=== PATIENT | female | born 1975 | race Two or more races ===

== ENCOUNTER 2020-09-05 08:47 | Outpatient (REF) | payer OTHER, SELFPAY ==
--- NOTE | 2020-09-05 08:46 | EMG_ITS ---
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 There is no numbness. MEDICATIONS: No medications. PHYSICAL EXAMINATION: On examination, she is alert and oriented with normal intellectual functions. Cranial nerves II through XII are normal. Muscle tone and strength are normal in all 4 extremities. There is some tenderness of the tendons. No Tinel or Phalen sign. IMPRESSION: Tendinitis, rule out carpal tunnel syndrome. Nerve conduction EMG study: Normal electrodiagnostic study of both upper extremities with no evidence of carpal tunnel syndrome or nerve entrapment. Normal EMG of the right C5 through T1 innervated muscles. MD KEISHA Gooden/[place] / [phone]
== END 2020-09-05 08:48 | disposition home or self-care (01) ==
LOC: HO.NEURO 08:47
PROVIDERS: PCP Internal Medicine; Visit Provider Internal Medicine
DX: M65.9 Synovitis and tenosynovitis, unspecified (principal)
CPT/HCPCS: 95886; 95913

== ENCOUNTER 2020-12-27 19:52 | Emergency (ER) | payer OTHER, SELFPAY ==
[2020-12-27 20:34] VITALS: BP 115/69; PULSE 86; RESP 18; TEMP 37; O2SAT 97; BMI 26.7
[2020-12-27] MEDS: Ibuprofen 600 MG TABLET PO (22:42)
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
== END 2020-12-28 00:07 | disposition home or self-care (01) ==
PROVIDERS: Emergency Provider Internal Medicine; PCP Internal Medicine
DX: Z04.1 Encounter for examination and observation following transport accident (principal); G89.11 Acute pain due to trauma; M54.5 Low back pain
CPT/HCPCS: 99283; 99284

== ENCOUNTER 2021-01-02 15:45 | Outpatient (REF) | payer OTHER, SELFPAY | END 2021-01-02 15:46 | disposition home or self-care (01) | LOC: HO.LAB 15:45 | PROVIDERS: Visit Provider Internal Medicine | DX: Z20.822 Contact with and (suspected) exposure to COVID-19 (principal) | CPT/HCPCS: C9803; U0003; U0005 ==

== ENCOUNTER 2021-02-02 07:26 | Emergency (ER) | payer OTHER, SELFPAY ==
[2021-02-02 07:29] VITALS: BP 107/67; PULSE 76; RESP 16; TEMP 36.5; O2SAT 100; BMI 26.7
--- NOTE | 2021-02-02 08:19 | ED_ITS ---
HPI - Eye Problem General Chief complaint: Eye Problems Stated complaint: eye irritation Time Seen by Provider: 02/02/21 08:06 Source: patient Mode of arrival: ambulatory Limitations: no limitations History of Present Illness HPI Narrative: 45-year-old female presenting to the ED with complaints of irritation to bilateral eyes with purulent drainage for the past 2 days after she had eyelash extensions. She reports she removed the eyelash extensions but continues to have pain/redness and purulent drainage and swelling to bilateral eyelids. Denies any fevers or any other symptoms complaints or concerns at this time. chief complaint: eye redness Onset (ago): day(s) (Few days worse today) Onset description: gradual Duration: constant and progressively worsening Location: both eyes Eye Symptoms: burning, redness, itching and discharge Place: home Mechanism: other (Artificial eyelashes) Severity: mild If Pain, Quality: burning Associated symptoms: none Treatments Prior to Arrival: none Related Data Home Medications Medication Instructions Recorded Confirmed sertraline 50 mg tablet 50 mg PO QAM 07/26/20 01/22/21 [id number]-arggvrntscxup-vqhjhazo 1 tab PO .2-3 TIMES A DAY PRN tab 08/10/20 01/22/21 50 mg-325 mg-40 mg tablet Previous Rx's Medication Instructions Recorded sennosides 8.6 mg tablet 8.6 mg PO BEDTIME PRN 90 Days #90 08/01/20 tab albuterol sulfate 90 mcg/actuation 2 puff INHALATION QID PRN #18 g 12/04/20 aerosol inhaler topiramate 25 mg sprinkle capsule 75 mg PO BEDTIME #90 cap 12/04/20 alprazolam 0.5 mg tablet 0.5 mg PO BID PRN 15 Days #30 tab 12/05/20 quetiapine 50 mg tablet 150 mg PO BEDTIME 30 Days #90 tab 12/05/20 carbamide peroxide 6.5 % ear drops 5 drp OTIC (EARS) DAILY 7 Days #30 12/21/20 ml acetaminophen [Tylenol Extra 500 mg PO Q6H PRN #20 tab 12/27/20 Strength] cyclobenzaprine 5 mg PO Q8H PRN 5 Days #14 tab 12/27/20 lidocaine [Lidoderm] 1 patch TOPICAL DAILY PRN #30 ea 12/27/20 MDD remove after 12 hours ferrous sulfate 325 mg (65 mg 325 mg PO DAILY #30 tab 01/22/21 iron) tablet,delayed release ibuprofen 800 mg tablet 800 mg PO TID PRN #90 tab 01/22/21 trazodone 150 mg tablet 150 mg PO BEDTIME PRN #30 tab 01/24/21 amoxicillin-pot clavulanate 1 tab PO BID 10 Days #20 tab 02/02/21 [Augmentin] clindamycin HCl 300 mg PO TID 10 Days #30 cap 02/02/21 erythromycin 0.5 inch OPHTHALMIC (EYE) QID 5 02/02/21 Days #3.5 g Allergies Allergy/AdvReac Type Severity Reaction Status Date / Time No Known Allergies Allergy Mild NKA Verified 01/22/21 13:16 Review of Systems Review of Systems: Constitutional : No fevers, no chills, No changes in activity, No lethargy, No recent prior head injury, No agitation, No increased fussiness ENT/Mouth : No Ear Pain, No Nasal discharge/drainage Eyes: + bilateral eyelid swelling, redness, purulent discharge, drainage and itching, No Vision changes/blurry/decreased vision, No Eye Pain, No Foreign Body, No Photophobia, no contact lens uses, no recent welding, no bleeding Cardiovascular : No Chest Pain, No SOB Respiratory : No Cough Gastrointestinal : No Nausea, No Vomiting, No abdominal Pain Genitourinary : No Dysuria, No Urinary Frequency, No Urinary Incontinence, No Urgency, No Flank Pain Musculoskeletal : No joint pain, No neck stiffness, No back pain/injury Skin : No lacerations Neuro : No unsteady gait, No Paresthesias, No Loss of Consciousness, No altered mental status, No dizziness, No Headache Denies past medical history of HIV, recent trauma, coagulopathy, recent spinal/ epidural procedure, new medication, URI symptoms, close contacts with similar symptoms, tick bite, or known CO2 exposure. Yes all other systems are reviewed and are negative PMFSH Past Medical History Attestation statement: The following information was validated with the patient. Medical History Anxiety Asthma Bipolar disorder Discomfort of both ears Impacted cerumen of both ears Insomnia Medical marijuana use Migraine Neck pain Neck pain on left side Overweight (BMI 25.0-29.9) Skin mole Tenosynovitis of forearm Tenosynovitis of thumb Surgical History History of breast augmentation (~02/18/10) History of section (~07/2011) History of incision and drainage (~2008) Status post abdominal hysterectomy (~02/09/13) Family History Family History Father Unknown family medical history Mother Diabetes mellitus Hypertension Asthma Paternal Grandfather Alzheimer's dementia Social History Social History Alcohol intake: never Smoking Status: Former smoker Substance Use Type: Marijuana Advance Directives: No Advance Directives Information Provided: Yes Patient : No Physical Exam Vital Signs: Vital Signs: Last Vital Signs Temp 97.7 F 02/02/21 07:29 Pulse 76 02/02/21 07:29 Resp 16 02/02/21 07:29 BP 107/67 02/02/21 07:29 Pulse Ox 100 02/02/21 07:29 Body Mass Index 26.7 vital signs have been reviewed as normal and appeared to be correct. Blood pressure normal. Heart rate normal. Respiration rate normal. Temperature normal. Oxygen saturation normal. Appearance: Alert. Oriented X3. No acute distress. Head: Normal external exam. Normocephalic. Atraumatic. No Calvo signs noted. No raccoon eyes noted Eyes: PERRLA. EOMI. Bilateral conjunctiva erythematous purulent discharge is noted consistent with conjunctivitis bacterial. Patient also with bilateral upper and lower eyelid erythema and edema consistent with periorbital cellulitis. Not consistent with orbital cellulitis at this time. Cornea are normal. Funduscopic exam within normal limits. Sclera normal. No papilledema noted. Anterior chamber normal. No photophobia noted. ENT: EAC normal. TM's Normal. Pharynx normal. Uvula midline. Moist mucous membranes. Neck: Normal inspection. Neck supple. FROM. No adenopathy. Thyroid Normal. No meningeal signs. No neck mass noted. CVS: Normal heart rate and rhythm. Heart sound normal. No murmurs noted. Pulses normal throughout. Respiratory: No respiratory distress. Painless inspiration. Breath sounds normal. Back: Full range of motion noted. Skin: Skin warm and dry. Normal skin color. Normal skin turgor. No rashes/lesions/lacerations noted. Extremities: No lower extremity edema. Extremities exhibit normal range of motion. Extremities nontender. Neuro: Oriented X 3. No motor deficit. No sensory deficit. Reflexes normal. Course Course Course Narrative: Patient with bilateral bacterial conjunctivitis with associated periorbital cellulitis not consistent with orbital cellulitis. Will DC home with topical and oral antibiotics and instructions to return if any new or worsening symptoms to follow up with primary care provider. Patient understands agrees with this plan. MDM - Eye Problem Medical Records Attestation: I reviewed the patient's medical records. Discharge Plan Discharge Clinical Impression: Bacterial conjunctivitis, Periorbital cellulitis Patient Disposition: Home, Self-Care Instructions: Periorbital Cellulitis in Adults (ED), Conjunctivitis (ED) Prescriptions: New clindamycin HCl 300 mg capsule 300 mg PO TID 10 Days Qty: 30 RF: 0 amoxicillin-pot clavulanate [Augmentin] 875-125 mg tablet 1 tab PO BID 10 Days Qty: 20 RF: 0 erythromycin 5 mg/gram (0.5 %) ointment 0.5 inch ophthalmic (eye) QID 5 Days Qty: 3.5 RF: 0 No Action sennosides [Senna Lax] 8.6 mg tablet 8.6 mg PO BEDTIME PRN (Reason: constipation) 90 Days Qty: 90 RF: 12 albuterol sulfate 90 mcg/actuation HFA aerosol inhaler 2 puff inhalation QID PRN (Reason: shortness of breath or wheezing) Qty: 18 RF: 2 topiramate 25 mg capsule, sprinkle 75 mg PO BEDTIME Qty: 90 RF: 0 alprazolam 0.5 mg tablet 0.5 mg PO BID PRN (Reason: anxiety) 15 Days Qty: 30 RF: 0 quetiapine 50 mg tablet 150 mg PO BEDTIME 30 Days Qty: 90 RF: 1 carbamide peroxide [Debrox] 6.5 % drops 5 drp otic (ears) DAILY 7 Days Qty: 30 RF: 0 ibuprofen 800 mg tablet 800 mg PO TID PRN (Reason: for fever) Qty: 90 RF: 1 ferrous sulfate 325 mg (65 mg iron) tablet,delayed release (DR/EC) 325 mg PO DAILY Qty: 30 RF: 1 trazodone 150 mg tablet 150 mg PO BEDTIME PRN (Reason: insomnia) Qty: 30 RF: 3 acetaminophen [Tylenol Extra Strength] 500 mg tablet 500 mg PO Q6H PRN (Reason: pain or fever) Qty: 20 RF: 0 lidocaine [Lidoderm] 5 % adhesive patch,medicated 1 patch topical DAILY MDD remove after 12 hours PRN (Reason: pain) Qty: 30 RF: 0 cyclobenzaprine 5 mg tablet 5 mg PO Q8H PRN (Reason: pain (scale score 7-10)) 5 Days Qty: 14 RF: 0 sertraline 50 mg tablet 50 mg PO QAM RF: 0 ivkttrqjcp-yutxygmcfvaoj-ywgm 50-325-40 mg tablet 1 tab PO .2-3 TIMES A DAY PRNRF: 0 Referrals: Perez Noriega MD [Primary Care Provider] - 2 days Stand Alone Forms: Work/School Release Print Language: Amharic
[2021-02-02] MEDS: Erythromycin Base 0.5% Oph Oin 1 GM TUBE 1 CM EYE-BOTH (08:27)
[2021-02-02] MEDS: Amoxicillin/Potassium Clav 875 MG TABLET PO (08:27)
--- NOTE | 2021-02-02 08:28 | PC.NURSE ---
Pt alert + oriented, c/o swelling, redness, pain to both eyes. Pt received PO abt + opthalmic ointment. Pt awaiting d/c at this time.
== END 2021-02-02 08:36 | disposition home or self-care (01) ==
PROVIDERS: Emergency Provider Emergency Medicine; PCP Internal Medicine
DX: H10.9 Unspecified conjunctivitis (principal); L03.213 Periorbital cellulitis
CPT/HCPCS: 99283

== ENCOUNTER 2021-05-28 16:32 | Emergency (ER) | payer MEDICAID, SELFPAY ==
[2021-05-28 16:54] VITALS: BP 99/54; PULSE 74; RESP 16; TEMP 36.2; O2SAT 98; BMI 21.6
--- NOTE | 2021-05-28 17:16 | ED.DIZZY ---
HPI - Dizziness General Chief Complaint: Dizziness Stated Complaint: near syncope Time Seen by Provider: 05/28/21 17:16 Source: patient Mode of arrival: ambulatory Limitations: no limitations History of Present Illness HPI Narrative: 46-year-old female presents with dizziness, near syncope and headache that started approximately 2-3 hours ago that started at work. She has not taken any medications, does not report any fevers or chills, cough, chest pain or pressure, shortness of breath, abdominal pain, abdominal distention, dysuria, hematuria, nausea, vomiting, diarrhea, constipation, or any other concerning symptoms. MD elicited complaint: dizziness and near syncope Onset (ago): hour(s) (3 hours) Timing: sudden onset Severity: mild Description: lightheadedness and near-syncope History of similar symptoms: Yes Relieving factors: nothing Associated symptoms: denies other symptoms Related Data Home Medications Medication Instructions Recorded Confirmed poxkgeeuap-nfaswkcrsiybe-vhkhfplg 1 tab PO .2-3 TIMES A DAY PRN tab 08/10/20 01/22/21 50 mg-325 mg-40 mg tablet Previous Rx's Medication Instructions Recorded sennosides 8.6 mg tablet (Senna 8.6 mg PO BEDTIME PRN 90 Days #90 08/01/20 Lax) tab carbamide peroxide 6.5 % ear drops 5 drp OTIC (EARS) DAILY 7 Days #30 12/21/20 (Debrox) ml acetaminophen 500 mg tablet 500 mg PO Q6H PRN #20 tab 12/27/20 (Tylenol Extra Strength) cyclobenzaprine 5 mg tablet 5 mg PO Q8H PRN 5 Days #14 tab 12/27/20 lidocaine 5 % topical patch 1 patch TOPICAL DAILY PRN #30 ea 12/27/20 (Lidoderm) MDD remove after 12 hours ferrous sulfate 325 mg (65 mg 325 mg PO DAILY #30 tab 01/22/21 iron) tablet,delayed release ibuprofen 800 mg tablet 800 mg PO TID PRN #90 tab 01/22/21 trazodone 150 mg tablet 150 mg PO BEDTIME PRN #30 tab 01/24/21 amoxicillin 875 mg-potassium 1 tab PO BID 10 Days #20 tab 02/02/21 clavulanate 125 mg tablet (Augmentin) clindamycin HCl 300 mg capsule 300 mg PO TID 10 Days #30 cap 02/02/21 erythromycin 5 mg/gram (0.5 %) eye 0.5 inch OPHTHALMIC (EYE) QID 5 02/02/21 ointment Days #3.5 g quetiapine 50 mg tablet 150 mg PO BEDTIME 30 Days #90 tab 02/08/21 sertraline 50 mg tablet 50 mg PO QAM 30 Days #30 tab 02/08/21 topiramate 25 mg sprinkle capsule 75 mg PO BEDTIME #90 cap 04/11/21 albuterol sulfate 90 mcg/actuation 2 puff INHALATION QID PRN #18 g 04/21/21 aerosol inhaler alprazolam 0.5 mg tablet 0.5 mg PO BID PRN 15 Days #30 tab 04/22/21 Allergies Allergy/AdvReac Type Severity Reaction Status Date / Time No Known Allergies Allergy Mild NKA Verified 01/22/21 13:16 Review of Systems Review of Systems: Constitutional: No Fever, No Chills ENT/Mouth: No Ear Pain, No Hoarseness, No sore throat Eyes: No Eye Pain, No Swelling, No Redness, No Foreign Body Cardiovascular: No Chest Pain, No SOB Respiratory: No Cough, No Dyspnea Gastrointestinal: No Nausea, No Vomiting, No Diarrhea, No abdominal Pain Genitourinary: No Dysuria, No Hematuria Musculoskeletal: No joint pain, No Myalgias, No Joint Swelling Skin: No Skin lacerations, No rash Neuro: No Weakness, No Numbness, No Paresthesias, No Loss of Consciousness, positive Dizziness, positive Headache Psych: No Anxiety/Panic, No Depression Heme/Lymph: no easy bruising, no Lymphadenopathy Endocrine: No Polyuria, No Polydipsia Yes all other systems are reviewed and are negative [facility] Past Medical History Attestation statement: The following information was validated with the patient. Source: old records reviewed Medical History Anxiety Asthma Bipolar disorder Discomfort of both ears Impacted cerumen of both ears Insomnia Medical marijuana use Migraine Neck pain Neck pain on left side Overweight (BMI 25.0-29.9) Skin mole Tenosynovitis of forearm Tenosynovitis of thumb Surgical History History of breast augmentation (~02/18/10) History of section (~07/2011) History of incision and drainage (~2008) Status post abdominal hysterectomy (~02/09/13) Family History Family History Father Unknown family medical history Mother Diabetes mellitus Hypertension Asthma Paternal Grandfather Alzheimer's dementia Social History Social History Alcohol intake: never Patient Tobacco Use Status: Never used Tobacco Substance Use Type: Marijuana Advance Directives: No Advance Directives Information Provided: No Physical Exam Vital Signs: Vital Signs: Last Vital Signs Temp 97.8 F 05/28/21 19:44 Pulse 64 05/28/21 19:44 Resp 16 05/28/21 19:44 BP 102/60 05/28/21 19:44 Pulse Ox 99 05/28/21 19:44 Body Mass Index 21.6 Appearance: Alert. Oriented X3. No acute distress. Eyes: Pupils equal, round and reactive to light. ENT: Pharynx normal. Dry mucous membranes. Neck: Normal inspection. Neck supple. CVS: Normal heart rate and rhythm. Pulses normal. Respiratory: No respiratory distress. Breath sounds normal. Abdomen: Soft and nontender. Skin: Skin warm and dry. Normal skin color. Normal skin turgor. Extremities: No lower extremity edema. Moves all extremities against resistance. Gait well balanced well coordinated. Neuro: No motor deficit. No sensory deficit. Cranial nerves 2-12 intact. Course Course Course Narrative: 46-year-old female presents with dizziness, near-syncope, and headache for about 2 hours. Symptoms started while she was at work. She does appear visibly dry, dry mucous membranes, with blood pressure of 99/54. Will order labs, urinalysis, and EKG. EKG normal sinus, troponin negative, low likelihood for ACS. Does have low blood pressure could possibly be dehydration and she does appear visibly dry. Will replete with 2 L of normal saline. Patient states that she feels much better after fluid resuscitation, blood pressure 102/60 plan of care to discharge home with patient to follow-up with primary care physician. Patient verbalized understanding of and agrees to plan of care. MDM - Dizziness Differential Diagnosis Differential diagnosis: Likely benign paroxysmal positional vertigo and orthostatic hypotension Medical Records Attestation: I reviewed the patient's medical records. Lab Data Attestation: I reviewed the patient's lab results. Result diagrams: 05/28/21 17:33 05/28/21 18:02 Labs: Lab Results 05/28/21 05/28/21 05/28/21 Range/Units 17:32 17:33 17:33 WBC 3.8 L (4.8-10.8) X10*3/uL RBC 4.72 (4.20-5.50) X10*6/uL Hgb 14.5 (12.0-16.0) g/dl Hct 42.9 (37-47) % MCV 90.9 (80-98) fL MCH 30.7 (27.0-33.0) pg MCHC 33.8 (31.0-35.0) g/dl RDW 11.8 (11.0-16.0) % Plt Count 158 L (160-400) X10*3/uL MPV 9.9 (9.4-12.3) fL Immature Gran % (Auto) 0.3 (0.0-0.4) % Neut % (Auto) 58.2 (45-73) % Lymph % (Auto) 29.1 (20-40) % Hunt % (Auto) 11.8 H (2-11) % Eos % (Auto) 0.3 (0-4) % Baso % (Auto) 0.3 (0-2) % Lymph # (Auto) 1.1 L (1.2-4.9) X10*3/uL Hunt # (Auto) 0.5 (0.1-1.2) X10*3/uL Eos # (Auto) 0.0 (0.0-0.4) X10*3/uL Baso # (Auto) 0.0 (0.0-0.2) X10*3/uL Abs Immat Gran (auto) 0.01 (0.00-0.03) X10*3/uL Absolute Neuts (auto) 2.2 (2.0-8.3) X10*3/uL Absolute Nucleated RBC 0.000 (0.0-0.012) X10*3/uL Nucleated RBC % (auto) 0.0 (0.0-0.2) /100WBC Sodium (135-145) mmol/L Potassium (3.3-5.1) mmol/L Chloride (96-108) mmol/L Carbon Dioxide (22-29) mmol/L Anion Gap (12-20) BUN (9-16) mg/dL Creatinine (0.5-1.4) mg/dL Estim Creat Clear Calc Estimated GFR Random Glucose (60-115) mg/dL Calcium (8.4-10.2) mg/dL Troponin I High Sens < 3.5 (<3.5-17.0) ng/L Urine Color STRAW Urine Appearance CLEAR Urine pH 6.0 (5.0-8.0) Ur Specific Marina <= 1.005 (1.005-1.025) Urine Protein NEG (NEG-TRACE) MG/DL Urine Glucose (UA) NEG (NEG) MG/DL Urine Ketones NEG (NEG) MG/DL Urine Blood NEG (NEG) Urine Nitrite NEG (NEG) Ur Leukocyte Esterase NEG (NEG) 05/28/21 Range/Units 18:02 WBC (4.8-10.8) X10*3/uL RBC (4.20-5.50) X10*6/uL Hgb (12.0-16.0) g/dl Hct (37-47) % MCV (80-98) fL MCH (27.0-33.0) pg MCHC (31.0-35.0) g/dl RDW (11.0-16.0) % Plt Count (160-400) X10*3/uL MPV (9.4-12.3) fL Immature Gran % (Auto) (0.0-0.4) % Neut % (Auto) (45-73) % Lymph % (Auto) (20-40) % Hunt % (Auto) (2-11) % Eos % (Auto) (0-4) % Baso % (Auto) (0-2) % Lymph # (Auto) (1.2-4.9) X10*3/uL Hunt # (Auto) (0.1-1.2) X10*3/uL Eos # (Auto) (0.0-0.4) X10*3/uL Baso # (Auto) (0.0-0.2) X10*3/uL Abs Immat Gran (auto) (0.00-0.03) X10*3/uL Absolute Neuts (auto) (2.0-8.3) X10*3/uL Absolute Nucleated RBC (0.0-0.012) X10*3/uL Nucleated RBC % (auto) (0.0-0.2) /100WBC Sodium 137 (135-145) mmol/L Potassium 4.1 (3.3-5.1) mmol/L Chloride 107 (96-108) mmol/L Carbon Dioxide 24 (22-29) mmol/L Anion Gap 10 L (12-20) BUN 11 (9-16) mg/dL Creatinine 0.73 (0.5-1.4) mg/dL Estim Creat Clear Calc 99.2 Estimated GFR > 60 Random Glucose 101 (60-115) mg/dL Calcium 8.3 L (8.4-10.2) mg/dL Troponin I High Sens (<3.5-17.0) ng/L Urine Color Urine Appearance Urine pH (5.0-8.0) Ur Specific Marina (1.005-1.025) Urine Protein (NEG-TRACE) MG/DL Urine Glucose (UA) (NEG) MG/DL Urine Ketones (NEG) MG/DL Urine Blood (NEG) Urine Nitrite (NEG) Ur Leukocyte Esterase (NEG) ECG Data Attestation: I personally reviewed and interpreted this ECG as follows: ECG interpretation date: 05/28/21 ECG interpretation time: 17:43 Prior ECG tracings: available for review Interpretation: Vent. rate 59 BPM OH interval 150 ms QRS duration 76 ms QT/QTc 404/399 ms P-R-T axes 31 44 26 Sinus bradycardia Otherwise normal ECG When compared with ECG of 15-JUN-2017 16:20, Previous ECG has undetermined rhythm, needs review ST no longer depressed in Anterior leads Discharge Plan Discharge Clinical Impression: Dizziness, Dehydration, Near syncope Patient Disposition: Home, Self-Care Instructions: Dehydration (ED), Near Syncope (ED), Dizziness (ED) Additional Instructions: You were evaluated for dizziness, near syncope and dehydration. Please drink plenty of fluids. Follow-up with primary care physician this week. Your EKG is normal sinus. Your lab values were normal. Thank you for choosing this emergency department for evaluation. Please follow-up with primary care physician as needed. Return to the emergency department for any new, concerning, or worsening symptoms. Prescriptions: No Action sennosides [Senna Lax] 8.6 mg tablet 8.6 mg PO BEDTIME PRN (Reason: constipation) 90 Days Qty: 90 RF: 12 carbamide peroxide [Debrox] 6.5 % drops 5 drp otic (ears) DAILY 7 Days Qty: 30 RF: 0 ibuprofen 800 mg tablet 800 mg PO TID PRN (Reason: for fever) Qty: 90 RF: 1 ferrous sulfate 325 mg (65 mg iron) tablet,delayed release (DR/EC) 325 mg PO DAILY Qty: 30 RF: 1 trazodone 150 mg tablet 150 mg PO BEDTIME PRN (Reason: insomnia) Qty: 30 RF: 3 quetiapine 50 mg tablet 150 mg PO BEDTIME 30 Days Qty: 90 RF: 1 sertraline 50 mg tablet 50 mg PO QAM 30 Days Qty: 30 RF: 1 topiramate 25 mg capsule, sprinkle 75 mg PO BEDTIME Qty: 90 RF: 3 albuterol sulfate 90 mcg/actuation HFA aerosol inhaler 2 puff inhalation QID PRN (Reason: shortness of breath or wheezing) Qty: 18 RF: 2 alprazolam 0.5 mg tablet 0.5 mg PO BID PRN (Reason: anxiety) 15 Days Qty: 30 RF: 0 clindamycin HCl 300 mg capsule 300 mg PO TID 10 Days Qty: 30 RF: 0 amoxicillin-pot clavulanate [Augmentin] 875-125 mg tablet 1 tab PO BID 10 Days Qty: 20 RF: 0 erythromycin 5 mg/gram (0.5 %) ointment 0.5 inch ophthalmic (eye) QID 5 Days Qty: 3.5 RF: 0 acetaminophen [Tylenol Extra Strength] 500 mg tablet 500 mg PO Q6H PRN (Reason: pain or fever) Qty: 20 RF: 0 lidocaine [Lidoderm] 5 % adhesive patch,medicated 1 patch topical DAILY MDD remove after 12 hours PRN (Reason: pain) Qty: 30 RF: 0 cyclobenzaprine 5 mg tablet 5 mg PO Q8H PRN (Reason: pain (scale score 7-10)) 5 Days Qty: 14 RF: 0 wrlwduiqpu-mcoxvvgstfehn-yqwf 50-325-40 mg tablet 1 tab PO .2-3 TIMES A DAY PRNRF: 0 Stand Alone Forms: Work/School Release Interventions: ED Discharge Assessment Last Done: 05/28/21 20:03 Discharge Date/Time: 05/28/21 20:03
--- NOTE | 2021-05-28 17:21 | ECG_ITS ---
Test Reason : WEAK Blood Pressure : / mmHG Vent. Rate : 059 BPM Atrial Rate : 059 BPM P-R Int : 150 ms QRS Dur : 076 ms QT Int : 404 ms P-R-T Axes : 031 044 026 degrees QTc Int : 399 ms Sinus bradycardia Otherwise normal ECG When compared with ECG of 15-JUN-2017 16:20, Previous ECG has undetermined rhythm, needs review ST no longer depressed in Anterior leads Referred By: Jami Joseph Electronically Signed By:LEO ACOSTA
[2021-05-28 17:43] LABS: MANUAL DIFF FLAG NO
[2021-05-28 17:46] LABS: Glucose Urine UA NEG (NEG); Leukocyte Esterase Urine NEG (NEG); Nitrite Urine NEG (NEG); Specific Gravity - Urine <= 1.005 (1.005-1.025); Urine Blood NEG (NEG); Urine Ketones NEG (NEG); Urine Protein NEG (NEG-TRACE)
[2021-05-28] MEDS: 0.9 % Sodium Chloride 1,000 ML 999 ML IVCONT ×2 (17:46→18:42)
[2021-05-28] MEDS: Acetaminophen 325 MG TABLET 975 MG PO (17:46)
[2021-05-28 17:47] LABS: Basophils Percent Auto 0.3 % (0-2); Eosinophils Percent Auto 0.3 % (0-4); Hematocrit 42.9 % (37-47); Hemoglobin 14.5 g/dl (12.0-16.0); Imm Gran Abs Auto 0.01 X10*3/uL (0.00-0.03); Imm Gran Pct Auto 0.3 % (0.0-0.4); Lymphocytes Absolute Auto 1.1 X10*3/uL (1.2-4.9); Lymphocytes Percent Auto 29.1 % (20-40); Mean Corpuscular HGB Conc 33.8 g/dl (31.0-35.0); Mean Corpuscular Hemoglobin 30.7 pg (27.0-33.0); Mean Corpuscular Volume 90.9 fL (80-98); Mean Platelet Volume 9.9 fL (9.4-12.3); Monocytes Absolute Auto 0.5 X10*3/uL (0.1-1.2); Monocytes Percent Auto 11.8 % (2-11); Neutrophils Absolute Auto 2.2 X10*3/uL (2.0-8.3); Neutrophils Percent Auto 58.2 % (45-73); Platelet Count 158 X10*3/uL (160-400); Red Blood Count 4.72 X10*6/uL (4.20-5.50); Red Cell Distribution Width 11.8 % (11.0-16.0); White Blood Count 3.8 X10*3/uL (4.8-10.8)
[2021-05-28 17:51] LABS: Appearance Urine CLEAR; Color Urine STRAW
[2021-05-28 18:09] LABS: Troponin-I High Sensitivity < 3.5 ng/L (<3.5-17.0)
[2021-05-28 18:41] LABS: Anion Gap 10 (12-20); Blood Urea Nitrogen 11 mg/dL (9-16); Calcium 8.3 mg/dL (8.4-10.2); Carbon Dioxide 24 mmol/L (22-29); Chloride 107 mmol/L (96-108); Creatinine Clr Calc Pharmacy 99.2; Estimated Glomerular Filt Rate > 60; Glucose Random 101 mg/dL (60-115); Potassium 4.1 mmol/L (3.3-5.1); Sodium 137 mmol/L (135-145)
[2021-05-28 19:44] VITALS: BP 102/60; PULSE 64; RESP 16; TEMP 36.6; O2SAT 99
== END 2021-05-28 20:03 | disposition home or self-care (01) ==
PROVIDERS: Nurse Practitioner Family; Emergency Provider Internal Medicine; PCP Internal Medicine
DX: R42 Dizziness and giddiness (principal); E86.0 Dehydration; R55 Syncope and collapse
CPT/HCPCS: 36415; 80048; 81003; 84484; 85025; 93005; 96360; 99284; 99285

== ENCOUNTER 2021-09-18 14:16 | Outpatient (REF) | payer OTHER, SELFPAY | END 2021-09-18 14:17 | disposition home or self-care (01) | LOC: HO.LNP 14:16 | PROVIDERS: Visit Provider Physician Assistant Medical | DX: B34.9 Viral infection, unspecified (principal); Z20.822 Contact with and (suspected) exposure to COVID-19 | CPT/HCPCS: U0003; U0005 ==

== ENCOUNTER 2021-11-09 12:08 | Emergency (ER) | payer OTHER, SELFPAY ==
--- NOTE | ~2021-11-09 | XR_ITS ---
EXAMINATION: XR ANKLE, RIGHT CLINICAL INFORMATION: Twisted right ankle. COMPARISON: None TECHNIQUE: Four views of the right ankle. FINDINGS: Lateral soft tissue swelling at the ankle. No fracture or malalignment. Bone mineralization is normal. Joint spaces are well-preserved. Ankle mortise is symmetric. XR/XR ankle RT min 3V IMPRESSION: Anterior and lateral soft tissue swelling at the right ankle. No acute fracture or malalignment.
[2021-11-09 12:20] VITALS: BP 113/62; PULSE 100; RESP 19; TEMP 36.6; O2SAT 97; BMI 31.2
--- NOTE | 2021-11-09 13:01 | ED_ITS ---
HPI - Extremity Injury (Lower) General Chief Complaint: Extremity Injury, Lower Stated Complaint: right ankle sprain/swollen Time Seen by Provider: 11/09/21 12:21 Source: patient Mode of arrival: ambulatory Limitations: no limitations History of Present Illness HPI Narrative: Patient is a 46 year old female presenting to the emergency department today with right ankle pain. Patient states that yesterday, she twisted her right ankle and would like to be evaluated today. Patient states that she did not hit her head in the incident and did not injure anything else in the incident. Patient denies any loss of consciousness with the incident. Patient denies any dizziness, lightheadedness, abdominal pain, nausea, vomiting, fever, chills, blurry vision, double vision, loss of vision, chest pain, difficulty breathing, shortness of breath, back pain, night sweats, pain with urination, increased urinary frequency, increased urinary urgency, blood in her urine or stool, syncope or a near syncopal episode, bowel incontinence, bladder incontinence, bowel retention, bladder retention, or any other complaints at this time. MD complaint: ankle injury Onset (ago): day(s) (1) Injury: Right: ankle (pain) Severity scale (1-10): 2 Relieving factors: nothing Exacerbating factors: nothing Other symptoms: none Related Data Home Medications Medication Instructions Recorded Confirmed toqyezdxby-ggoktqdaiwqsy-fcbrdamb 1 tab PO .2-3 TIMES A DAY PRN tab 08/10/20 01/22/21 50 mg-325 mg-40 mg tablet Previous Rx's Medication Instructions Recorded sennosides 8.6 mg tablet (Senna 8.6 mg PO BEDTIME PRN 90 Days #90 08/01/20 Lax) tab carbamide peroxide 6.5 % ear drops 5 drp OTIC (EARS) DAILY 7 Days #30 12/21/20 (Debrox) ml acetaminophen 500 mg tablet 500 mg PO Q6H PRN #20 tab 12/27/20 (Tylenol Extra Strength) cyclobenzaprine 5 mg tablet 5 mg PO Q8H PRN 5 Days #14 tab 12/27/20 lidocaine 5 % topical patch 1 patch TOPICAL DAILY PRN #30 ea 12/27/20 (Lidoderm) MDD remove after 12 hours ferrous sulfate 325 mg (65 mg 325 mg PO DAILY #30 tab 01/22/21 iron) tablet,delayed release ibuprofen 800 mg tablet 800 mg PO TID PRN #90 tab 01/22/21 trazodone 150 mg tablet 150 mg PO BEDTIME PRN #30 tab 01/24/21 amoxicillin 875 mg-potassium 1 tab PO BID 10 Days #20 tab 02/02/21 clavulanate 125 mg tablet (Augmentin) clindamycin HCl 300 mg capsule 300 mg PO TID 10 Days #30 cap 02/02/21 erythromycin 5 mg/gram (0.5 %) eye 0.5 inch OPHTHALMIC (EYE) QID 5 02/02/21 ointment Days #3.5 g quetiapine 50 mg tablet 150 mg PO BEDTIME 30 Days #90 tab 02/08/21 sertraline 50 mg tablet 50 mg PO QAM 30 Days #30 tab 02/08/21 topiramate 25 mg sprinkle capsule 75 mg PO BEDTIME #90 cap 04/11/21 albuterol sulfate 90 mcg/actuation 2 puff INHALATION QID PRN #18 g 04/21/21 aerosol inhaler alprazolam 0.5 mg tablet 0.5 mg PO BID PRN 15 Days #30 tab 04/22/21 Allergies Allergy/AdvReac Type Severity Reaction Status Date / Time No Known Allergies Allergy Mild NKA Verified 09/18/21 12:37 Review of Systems Constitutional: Constitutional: Reports no additional constitutional complaints, Denies chills, Denies fever(s) and Denies night sweats Eyes: Eyes: Reports no additional eye complaints, Denies blurry vision, Denies change in vision, Denies diplopia, Denies eye discharge, Denies loss of vision and Denies eye pain ENT: Denies dizziness Cardiovascular: Cardiovascular: Reports no additional cardiovascular complaints, Denies chest pain, Denies lightheadedness, Denies Loss of Consciousness and Denies dyspnea Respiratory: Respiratory: Reports no additional respiratory complaints and Denies dyspnea Gastrointestinal: Gastrointestinal: Reports no additional gastrointestinal complaints, Denies abdominal pain, Denies melena, Denies hematochezia, Denies change in bowel habits and Denies change in stool character Genitourinary: Genitourinary: Denies hematuria, Denies urinary frequency, Denies dysuria, Denies urinary incontinence, Denies urinary hesitancy and Denies urinary urgency Musculoskeletal: Musculoskeletal: Reports no additional musculoskeletal complaints, Denies numbness and Denies tingling Comments: right ankle pain Neurologic: Denies dizziness, Denies loss of vision, Denies numbness and Denies tingling Psychiatric: Psychiatric: Reports no additional psychiatric complaints Endocrine: Endocrine: Reports no additional endocrine complaints Hematologic/Lymphatic: Hematologic/Lymphatic: Reports no additional hematologic/lymphatic complaints Allergic/Immunologic: Allergic/Immunologic: Reports no additional a llergic/immunologic complaints PMFSH Past Medical History Attestation statement: The following information was validated with the patient. Source: old records reviewed Medical History Anxiety Asthma Bipolar disorder Discomfort of both ears Impacted cerumen of both ears Insomnia Medical marijuana use Migraine Neck pain Neck pain on left side Overweight (BMI 25.0-29.9) Skin mole Tenosynovitis of forearm Tenosynovitis of thumb Surgical History History of breast augmentation (~02/18/10) History of section (~07/2011) History of incision and drainage (~2008) Status post abdominal hysterectomy (~02/09/13) Family History Family History Father Unknown family medical history Mother Diabetes mellitus Hypertension Asthma Paternal Grandfather Alzheimer's dementia Social History Social History Alcohol intake: never Patient Tobacco Use Status: Never used Tobacco Substance Use Type: Marijuana Advance Directives: No Advance Directives Information Provided: Yes Physical Exam Vital Signs: Vital Signs: Last Vital Signs Temp 98 F 11/09/21 12:20 Pulse 100 11/09/21 12:20 Resp 19 11/09/21 12:20 BP 113/62 11/09/21 12:20 Pulse Ox 97 11/09/21 12:20 BMI result Body Mass Index 31.2 Const: General: cooperative, no acute distress, alert and awake Nutritional Appearance: well nourished Orientation/consciousness: patient oriented x3 Limitations: no limitations HENMT: Head: Yes normal to inspection and Yes atraumatic Ears: hearing grossly normal bilaterally and external ears normal General nose exam: Normal external nose present, no nasal discharge noted and no epistaxis Face and sinus: Yes normal facial exam, No abrasion and No laceration Mouth: Normal oral and palatal mucosa present, no drooling and no muffled voice Eyes: General: appearance normal, both eyes and all related structures Periorbital: periorbital findings normal Eyelids: Yes eyelids normal Conjunctivae: conjunctivae normal Pupils: Equal, round and reactive pupils present EOM: EOMs intact bilaterally Neck: Neck: Yes normal visual inspection, Yes full ROM and Yes no lymp hadenopathy Chest: Chest palpation & inspection: normal inspection of the chest Resp: Effort & Inspection: normal respiratory effort and able to speak in complete sentences GI: Inspection: Yes normal to inspection Neuro: General: patient oriented x3 and moves all extremities Cranial nerves: Yes Equal, round and reactive pupils present Cognition (Neuro): normal cognition Motor exam (neuro): 5/5 motor strength present throughout Sensory Exam: Normal double simultaneous stimulation for sensation Coordination: [id number] test normal Extrem: General: Yes normal to inspection, Yes full ROM and Yes capillary refill normal Psych: Appearance: grossly normal Mental Status: mental status grossly normal Affect: normal affect Attitude: cooperative Thought process: Normal thought process present Thought content: Normal thought content present Insight: Good insight present (Psych) MDM - Extremity Injury (Lower) MDM Narrative Medical decision making narrative: Patient is a 46 year old female presenting to the emergency department today with right ankle pain. Patient's physical exam was unremarkable. Patient's right ankle x-ray showed no acute process. I explained my physical exam findings as well as all test results to the patient. I answered all questions asked by the patient. Patient's right ankle was placed in a splint and the patient was given and educated on proper use of crutches. I stressed the importance of the patient following up with an orthopedist if the patient does not get better in the next 7 days. I stressed the importance of the patient following up with her primary care provider. I stressed the importance of the patient returning to the emerg ency department immediately if her symptoms were to worsen or if she were to develop any dizziness, shortness of breath, difficulty breathing, chest pain, blurry vision, loss of vision, nausea, vomiting, abdominal pain, fever, chills, back pain, or any other complaints. Patient verbalized agreement and understanding with this treatment plan and discharge. Differential Diagnosis Differential diagnosis: Likely ankle sprain and strain and ankle fracture Medical Records Attestation: I reviewed the patient's medical records. Imaging Data right ankle x-ray: Attestation: I personally reviewed and interpreted this imaging study as follows: Radiologist's impression: EXAMINATION: XR ANKLE, RIGHT CLINICAL INFORMATION: Twisted right ankle.? COMPARISON: None? TECHNIQUE: Four views of the right ankle. FINDINGS: Lateral soft tissue swelling at the ankle. No fracture or malalignment. Bone mineralization is normal. Joint spaces are well-preserved. Ankle mortise is symmetric. XR/XR ankle RT min 3V IMPRESSION: Anterior and lateral soft tissue swelling at the right ankle. No acute fracture or malalignment. Dictated By: LOLIS DONALDSON MD Signed By: Electronically signed by LOLIS DONALDSON MD 11/09/2021 Discharge Plan Discharge Clinical Impression: Ankle sprain Patient Disposition: Home, Self-Care Instructions: Ankle Sprain (ED) Additional Instructions: Call to schedule a follow up appointment with an Orthopedic provider. Follow up with your primary care provider. Return to the emergency department immediately if your symptoms worsen or if you develop any dizziness, shortness of breath, difficulty breathing, chest pain, blurry vision, loss of vision, nausea, vomiting, abdominal pain, fever, chills, back pain, or any other complaints. Prescriptions: No Action sennosides [Senna Lax] 8.6 mg tablet 8.6 mg PO BEDTIME PRN (Reason: constipation) 90 Days Qty: 90 12RF carbamide peroxide [Debrox] 6.5 % drops 5 drp otic (ears) DAILY 7 Days Qty: 30 0RF Rx Instructions: apply into BOTH ears as instructed ibuprofen 800 mg tablet 800 mg PO TID PRN (Reason: for fever) Qty: 90 1RF ferrous sulfate 325 mg (65 mg iron) tablet,delayed release (DR/EC) 325 mg PO DAILY Qty: 30 1RF trazodone 150 mg tablet 150 mg PO BEDTIME PRN (Reason: insomnia) Qty: 30 3RF quetiapine 50 mg tablet 150 mg PO BEDTIME 30 Days Qty: 90 1RF sertraline 50 mg tablet 50 mg PO QAM 30 Days Qty: 30 1RF topiramate 25 mg capsule, sprinkle 75 mg PO BEDTIME Qty: 90 3RF albuterol sulfate 90 mcg/actuation HFA aerosol inhaler 2 puff inhalation QID PRN (Reason: shortness of breath or wheezing) Qty: 18 2RF alprazolam 0.5 mg tablet 0.5 mg PO BID PRN (Reason: anxiety) 15 Days Qty: 30 0RF clindamycin HCl 300 mg capsule 300 mg PO TID 10 Days Qty: 30 0RF amoxicillin-pot clavulanate [Augmentin] 875-125 mg tablet 1 tab PO BID 10 Days Qty: 20 0RF erythromycin 5 mg/gram (0.5 %) ointment 0.5 inch ophthalmic (eye) QID 5 Days Qty: 3.5 0RF acetaminophen [Tylenol Extra Strength] 500 mg tablet 500 mg PO Q6H PRN (Reason: pain or fever) Qty: 20 0RF lidocaine [Lidoderm] 5 % adhesive patch,medicated 1 patch topical DAILY MDD remove after 12 hours PRN (Reason: pain) Qty: 30 0RF Rx Instructions: leave on most painful area for up to 12 hrs cyclobenzaprine 5 mg tablet 5 mg PO Q8H PRN (Reason: pain (scale score 7-10)) 5 Days Qty: 14 0RF nyfumbgaoi-vxemjalslmbsr-mewc 50-325-40 mg tablet 1 tab PO .2-3 TIMES A DAY [id number] Referrals: Perez Noriega MD [Primary Care Provider] - 2 days Rob Mcdermott MD [Physician] - 2 days Print Language: Ma[place]
== END 2021-11-09 15:30 | disposition home or self-care (01) ==
PROVIDERS: Emergency Provider Emergency Medicine Emergency Medical Services; PCP Internal Medicine
DX: S93.401A Sprain of unspecified ligament of right ankle, initial encounter (principal); X50.1XXA Overexertion from prolonged static or awkward postures, initial encounter; Y93.9 Activity, unspecified; Y92.9 Unspecified place or not applicable; Y99.9 Unspecified external cause status
CPT/HCPCS: 73610; 99283

== ENCOUNTER 2022-09-24 10:34 | Outpatient (REF) | payer OTHER, SELFPAY ==
--- NOTE | ~2022-09-24 | XR_ITS ---
EXAMINATION: LUMBAR SPINE, CERVICAL SPINE AND LEFT SHOULDER. CLINICAL INFORMATION: Pain in left shoulder. COMPARISON: None TECHNIQUE: 5 views lumbar spine. Left shoulder 4 views. Cervical spine 3 views. FINDINGS: Lumbar spine: There is normal lumbar lordosis. The vertebral heights, alignment and disc heights are normal. The SI joints are symmetrical. No visible acute fracture, dislocation or subluxation seen. Left shoulder: There is normal glenohumeral and AC joint alignment. Mild reduction AC joint and glenohumeral joint space is seen. Mild superior AC joint periarticular spurring. No visible acute fracture, dislocation or subluxation seen. The soft tissues are normal. Cervical spine: There is mild straightening of cervical lordosis. The vertebral heights, alignment and disc heights are normal. No visible acute fracture, dislocation or subluxation seen. The prevertebral and paravertebral soft tissues are normal. XR/XR lumbar spine 4V min IMPRESSION: 1. Unremarkable lumbar spine exam. 2. Mild degenerative changes left A.C. joint and glenohumeral joint. No visible acute fracture, dislocation or subluxation seen. 3. Mild straightening of cervical lordosis likely spasm or positional. No visible acute fracture or dislocation seen.
--- NOTE | ~2022-09-24 | XR_ITS ---
EXAMINATION: LUMBAR SPINE, CERVICAL SPINE AND LEFT SHOULDER. CLINICAL INFORMATION: Pain in left shoulder. COMPARISON: None TECHNIQUE: 5 views lumbar spine. Left shoulder 4 views. Cervical spine 3 views. FINDINGS: Lumbar spine: There is normal lumbar lordosis. The vertebral heights, alignment and disc heights are normal. The SI joints are symmetrical. No visible acute fracture, dislocation or subluxation seen. Left shoulder: There is normal glenohumeral and AC joint alignment. Mild reduction AC joint and glenohumeral joint space is seen. Mild superior AC joint periarticular spurring. No visible acute fracture, dislocation or subluxation seen. The soft tissues are normal. Cervical spine: There is mild straightening of cervical lordosis. The vertebral heights, alignment and disc heights are normal. No visible acute fracture, dislocation or subluxation seen. The prevertebral and paravertebral soft tissues are normal. XR/XR cervical spine 3V IMPRESSION: 1. Unremarkable lumbar spine exam. 2. Mild degenerative changes left A.C. joint and glenohumeral joint. No visible acute fracture, dislocation or subluxation seen. 3. Mild straightening of cervical lordosis likely spasm or positional. No visible acute fracture or dislocation seen.
--- NOTE | ~2022-09-24 | XR_ITS ---
EXAMINATION: LUMBAR SPINE, CERVICAL SPINE AND LEFT SHOULDER. CLINICAL INFORMATION: Pain in left shoulder. COMPARISON: None TECHNIQUE: 5 views lumbar spine. Left shoulder 4 views. Cervical spine 3 views. FINDINGS: Lumbar spine: There is normal lumbar lordosis. The vertebral heights, alignment and disc heights are normal. The SI joints are symmetrical. No visible acute fracture, dislocation or subluxation seen. Left shoulder: There is normal glenohumeral and AC joint alignment. Mild reduction AC joint and glenohumeral joint space is seen. Mild superior AC joint periarticular spurring. No visible acute fracture, dislocation or subluxation seen. The soft tissues are normal. Cervical spine: There is mild straightening of cervical lordosis. The vertebral heights, alignment and disc heights are normal. No visible acute fracture, dislocation or subluxation seen. The prevertebral and paravertebral soft tissues are normal. XR/XR shoulder LT min 2V IMPRESSION: 1. Unremarkable lumbar spine exam. 2. Mild degenerative changes left A.C. joint and glenohumeral joint. No visible acute fracture, dislocation or subluxation seen. 3. Mild straightening of cervical lordosis likely spasm or positional. No visible acute fracture or dislocation seen.
== END 2022-09-24 10:35 | disposition home or self-care (01) ==
LOC: HO.XRAY 10:34
PROVIDERS: PCP Internal Medicine; Visit Provider Nurse Practitioner Family
DX: M54.2 Cervicalgia (principal); M54.50 Low back pain, unspecified; M25.512 Pain in left shoulder
CPT/HCPCS: 72040; 72110; 73030

== ENCOUNTER 2022-10-09 08:52 | Outpatient (REF) | payer OTHER, SELFPAY ==
--- NOTE | ~2022-10-09 | CT_ITS ---
EXAMINATION: CT HEAD WITHOUT CONTRAST CLINICAL INFORMATION: Headache. COMPARISON: Head CT 03/01/2014. TECHNIQUE: Contiguous axial imaging was performed from the skull base to vertex without intravenous administration of contrast. This CT examination was performed using dose optimization techniques as appropriate, variously including the following: *Automated exposure control *Adjustment of mA and/or kV according to patient size (this includes techniques or standardized protocols for targeted exams where dose is matched to indication/reason for exam; i.e. extremities or head) *Use of iterative reconstruction technique DLP: 751 mGy-cm. FINDINGS: There is no intracranial hemorrhage, large infarction, or mass lesion. There is no extra-axial collection. The ventricles are normal in size and configuration without evidence of hydrocephalus. The visualized paranasal sinuses and mastoid air cells are clear. CT/CT head/brain wo IV con IMPRESSION: No acute intracranial abnormality.
== END 2022-10-09 08:53 | disposition home or self-care (01) ==
LOC: HO.CT 08:52
PROVIDERS: PCP Internal Medicine; Visit Provider Nurse Practitioner Family
DX: R51.9 Headache, unspecified (principal)
CPT/HCPCS: 70450

== ENCOUNTER → 2023-01-05 13:27 | Outpatient (BNVA) | payer OTHER, SELFPAY | PROVIDERS: PCP Internal Medicine; Referring Provider Internal Medicine; Visit Provider Surgery | DX: K62.89 Other specified diseases of anus and rectum (principal) | CPT/HCPCS: 99202 ==

== ENCOUNTER 2023-06-25 09:57 | Outpatient (AMB) | payer OTHER, SELFPAY ==
[2023-06-25 10:05] VITALS: BP 120/80; PULSE 62; O2SAT 97; BMI 28.1
--- NOTE | 2023-06-25 10:05 | A.OFFPC_ITS ---
Vital Signs 06/25/23 10:05 Height 5 ft Weight 144 lb 2 oz BMI 28.1 BP 120/80 Blood Pressure Location Lt brachial Position Sitting Pulse 62 Pulse Source Pulse Oximeter Pulse Oximetry (%) 97 Oxygen Delivery Method Room Air Intake Visit Reasons: Annual Exam Bottler Required: No Accompanied by: Self / Same As Patient Allergies No Known Allergies Allergy (Mild, Verified 06/25/23 10:54) NKA Medication List - Last Reconciled 06/25/23 by Perez Noriega MD ferrous sulfate 325 mg PO DAILY ibuprofen 800 mg PO TID PRN 30 days Ventolin HFA 90 mcg/actuation (albuterol sulfate) 2 puffs inhalation Q6-8H PRN NS Tobacco use date assessed: 06/25/23 Dental Screening Dental Screen Date: 06/25/23 Did you have a dental visit in the last 12 months?: Yes Did you have a dental problem in the last 6 months where you did not have access to dental care?: No Was dental information given to patient?: Patient has dentist HPI Annual Exam HPI Details Patient comes in today for her annual physical examination States that she feels okay She denies any headaches or dizziness Denies any chest pains, no SOB No nausea/vomiting, no abdominal pain No change in bowel habits noted Denies any acute urinary symptoms Needs a couple of her Rx refilled today States that she has not done her follow up labs lately Has never had a screening colonoscopy done in the past and would like to have Dr. Parr do her colonoscopy as much as possible as she has seen Dr. 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 board operator or had her pap smear done [facility] Medical History Perianal cyst Discomfort of both ears Neck pain Impacted cerumen of both ears Neck pain on left side Skin mole Tenosynovitis of thumb Tenosynovitis of forearm Overweight (BMI 25.0-29.9) Medical marijuana use Bipolar disorder Anxiety Insomnia Migraine Asthma Surgical History Status post abdominal hysterectomy (~05/15/13) History of section (~07/2011) History of breast augmentation (~02/18/10) History of incision and drainage (~2008) Family History Father Unknown family medical history Mother Diabetes mellitus Hypertension Asthma Paternal Grandfather Alzheimer's dementia Social History Housing: Apartment Alcohol intake: never Patient Tobacco Use Status: Never used Tobacco e-Cigarette/Vaping Use: Never Used Second Hand Smoke Exposure: Yes service: No Current occupational status: employed Cognitive needs: No Hearing needs: No Vision needs: Yes (needs to see eye doctor) Questionnaire PHQ-9 Over the last 2 weeks, how often have you been bothered by any of the following problems? 1. Little interest or pleasure in doing things: not at all 2. Feeling down, depressed, or hopeless: not at all 3. Trouble falling or staying asleep, or sleeping too much: not at all 4. Feeling tired or having little energy: not at all 5. Poor appetite or overeating: not at all 6. Feeling bad about yourself - or that you are a failure or have let yourself or your family down: not at all 7. Trouble concentrating on things, such as reading the newspaper or watching television: not at all 8. Moving or speaking so slowly that other people could have noticed. Or the opposite - being so fidgety or restless that you have been moving around a lot more than usual: not at all 9. Thoughts that you would be better off or of hurting yourself in some way: not at all Total score: 0 Depression Screening Interpretation: Negative [id number] - PHQ-9 Billing: Yes Source: Developed by Drs. Solomon Duval, Alexa Degroot, José Miguel Lundberg and colleagues, with an educational zulema from [employer]. Thrive Questionnaire Date Thrive assessed: 06/25/23 I am a: Patient What is your living situation today?: I have a steady place to live Within the past 12 months, did the food you bought not last and you didn't have the money to get more?: Never true Within the past 12 months, did you worry whether your food would run out before you got money to buy more?: Never true Do you have trouble paying for medicines?: No Do you have trouble getting transportation to medical appointments?: No Do you have trouble paying your heating and electricity bill?: No Do you have trouble taking care of your child, family member or friend?: No Do you have trouble with day-to-day activities such as bathing, preparing meals, shopping, managing finances, etc.?: No Are you currently unemployed and looking for a job?: No Are you interested in more education?: No Please select the resources that you would like help with: None Currently or been in a relationship where the following occur: no concerns reported AUDIT C Alcohol Use Questionnaire (AUDIT-C) 1. How often do you have a drink containing alcohol?: Never 3. How often do you have six or more drinks on one occasion?: Never Total Score: 0 Score Reviewed/Action Taken: Yes MALINA-7 AMB Questionnaire MALINA-7 Date MALINA - 7 assessed: 06/25/23 Feeling nervous, anxious, or on edge: 0 = Not at all Not being able to stop or control worryin = Not at all Worrying too much about different things: 0 = Not at all Trouble relaxin = Not at all Being so restless that it is hard to sit still: 0 = Not at all Becoming easily annoyed or irritable: 0 = Not at all Feeling afraid as if something awful might happen: 0 = Not at all Total MALINA-7 score (0-4 normal; 5-9 mild; 10-14 moderate; 15-21 severe): 0 Source: Developed by Drs. Solomon Duval, Alexa Degroot, José Miguel Lundberg and colleagues, with an educational zulema from [employer]. Review of Systems Const Denies chills, Denies fatigue, Denies fever(s), Denies headache(s) and Denies malaise Eyes Denies blurry vision, Denies change in vision, Denies irritation and Denies itchy eyes ENT Denies dysphagia, Denies dizziness, Denies otalgia, Denies headache(s), Denies nasal congestion, Denies neck pain, Denies odynophagia, Denies sinus pain and Denies sore throat Card Denies chest pain, Denies rapid heart rate, Denies irregular heart rhythm, Denies palpitations and Denies dyspnea Resp Denies chest congestion, Denies cough, Denies dyspnea and Denies wheezing GI Denies abdominal pain, Denies bloating, Denies constipation, Denies dysphagia, Denies heartburn, Denies diarrhea, Denies nausea, Denies odynophagia and Denies vomiting Denies hematuria, Denies urinary frequency, Denies dysuria, Denies urinary incontinence and Denies urinary urgency Musc Denies back pain, Denies arthralgias, Denies joint swelling, Denies muscle weakness and Denies neck pain Skin/Breast Denies breast pain, Denies breast mass, Denies change in pigmentation, Denies lesions, Denies rash and Denies unusual bruising Neuro Denies dizziness, Denies headache(s) and Denies paresthesias Psych Denies anxiety and Denies depression Endo Denies fatigue and Denies palpitations Albert/Lymph Denies easy bruising Aller/Immun Denies itchy eyes and Denies wheezing Physical exam (Primary Care) Vital Signs: Last Vital Signs Pulse 62 06/25/23 10:05 BP 120/80 06/25/23 10:05 Pulse Ox 97 06/25/23 10:05 Oxygen Delivery Method Room Air 06/25/23 10:05 BMI result Body Mass Index 28.1 Tobacco/Smoking Status: Tobacco use Status Tobacco use date assessed 06/25/23 06/25/23 10:07 Patient Tobacco Use Status Never used Tobacco 06/25/23 10:07 e-Cigarette/Vaping Use Never Used 06/25/23 10:07 PHQ-9: PHQ-9 Score PHQ-9: Total score 0 06/25/23 11:55 Depression Screening Interpretation: Negative Thrive Assessment: Date of Thrive Assessment Date Thrive assessed 06/25/23 06/25/23 10:07 Currently or been in a relationship where the following occur: no concerns reported Const General: no acute distress, alert and awake Orientation/consciousness: patient oriented x3 HENMT Head: Yes normocephalic and Yes atraumatic Ears: external ears normal, TM's normal bilaterally and EAC's normal General nose exam: No nasal discharge present Face and sinus: Yes normal facial exam and Yes sinuses nontender Teeth and gingiva: dentition normal Throat: Yes posterior oropharynx normal and Yes tonsils normal (no TP congestion) Eyes Eyelids: Yes eyelids normal Conjunctivae: conjunctivae normal Pupils: Equal, round and reactive pupils present EOM: EOMs intact bilaterally Neck Neck: Yes no lymphadenopathy and Yes supple Thyroid: Thyroid normal Resp Auscultation: clear to auscultation bilaterally, no rales and no wheezes Cardio Rate: regular rate Rhythm: regular rhythm Heart sounds: no murmurs GI Palpation (GI): Soft to palpation, nontender and No hepatosplenomegaly present Auscultation: normal bowel sounds General: Yes no CVA tenderness Back/Spine/Pelvis Back: no CVA tenderness Thoracic/Lumbar Spine: thoracic and lumbar spine normal to inspection Skin Lesions: no lesions Rashes: no rashes Neuro General: patient oriented x3, moves all extremities, no focal motor deficits and CN's II-XI intact bilaterally Cranial nerves: Yes Equal, round and reactive pupils present Cognition (Neuro): normal cognition Gait exam (Neuro): Normal gait present Extrem General: Yes no clubbing, cyanosis or edema Assessment and Plan Assessment & Plan (1) Annual physical exam: Code(s): Z00.00 - Encounter for general adult medical examination without abnormal findings Plan: Check labs WAYNE (2) Asthma: Code(s): J45.909 - Unspecified asthma, uncomplicated Qualifiers: Asthma complication type: uncomplicated Asthma persistence: intermittent Asthma severity: mild Qualified Code(s): J45.20 - Mild intermittent asthma, uncomplicated Plan: Controlled/stable Continue Albuterol HFA 1 to 2 inhalations Q 6 hours PRN - Rx refilled (3) Anemia: Code(s): D64.9 - Anemia, unspecified Qualifiers: Anemia type: iron deficiency Iron deficiency anemia type: inadequate dietary iron intake Qualified Code(s): D50.8 - Other iron deficiency anemias Plan: Continue Ferrous Sulfate 325 mg QD - Rx refilled Will recheck her CBC for follow up (4) Migraine: Code(s): G43.909 - Migraine, unspecified, not intractable, without status migrainosus Qualifiers: Intractability: not intractable Migraine type: unspecified Status migrainosus presence: without status migrainosus Qualified Code(s): G43.909 - Migraine, unspecified, not intractable, without status migrainosus Plan: Stable/controlled Continue Fioricet 50-325-40 mg 1 tablet 2 to 3 times a day as needed (5) Anxiety: Code(s): F41.9 - Anxiety disorder, unspecified Plan: States that her anxiety remains well-controlled lately and she does not need any Rx at this time States that working full-time and staying busy has helped keep her occupied and has helped a lot (6) Bipolar disorder: Code(s): F31.9 - Bipolar disorder, unspecified Qualifiers: Active/Remission status: currently active Current bipolar episode type: mixed Current episode severity: unspecified Qualified Code(s): F31.60 - Bipolar disorder, current episode mixed, unspecified Plan: Has not been on any Rx for several months now and states that she is doing well so far without any Rx Working full-time has helped a lot Follow up with psychiatry as scheduled (7) Overweight (BMI 25.0-29.9): Code(s): E66.3 - Overweight Plan: Reinforced diet/exercise as tolerated/lose weight (8) Colon cancer screening: Code(s): Z12.11 - Encounter for screening for malignant neoplasm of colon Plan: Patient states that she has never had a screening colonoscopy done in the past Per request, will refer her to Dr. 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 assistant exam - has not had one done in years Plan Follow up in 6 months Orders: Orders Complete Blood Count Auto Diff Today D64.9 - Anemia, unspecified, Z00.00 - Encounter for general adult medical examination without abnormal findings Lipid Panel Today E78.00 - Pure hypercholesterolemia, unspecified, Z00.00 - Encounter for general adult medical examination without abnormal findings TSH reflex Free T4 Today E78.00 - Pure hypercholesterolemia, unspecified, Z00.00 - Encounter for general adult medical examination without abnormal findings UA CC w/rflx Micro + Cult Today R30.0 - Dysuria, Z00.00 - Encounter for general adult medical examination without abnormal findings Vitamin D 25-OH Total Today E55.9 - Vitamin D deficiency, unspecified, Z00.00 - Encounter for general adult medical examination without abnormal findings Hemoglobin A1c Today R73.01 - Impaired fasting glucose MM tomosynthesis screening BI Today Z12.31 - Encounter for screening mammogram for malignant neoplasm of breast Comprehensive [place]. Panel Fast Today D64.9 - Anemia, unspecified, Z00.00 - Encounter for general adult medical examination without abnormal findings Referrals General Surgery Referral Z12.11 - Encounter for screening for malignant neoplasm of colon MANAGER MEDICARE Referral Z12.4 - Encounter for screening for malignant neoplasm of cervix Medications: Changed From ferrous sulfate 325 mg PO DAILY 30 tabs 1RF To ferrous sulfate 325 mg PO DAILY 90 days 90 tabs 3RF From Ventolin HFA 90 mcg/actuation (albuterol sulfate) 2 puffs inhalation Q6-8H PRN 18 grams 3RF shortness of breath or wheezing NS To Ventolin HFA 90 mcg/actuation (albuterol sulfate) 2 puffs inhalation Q6-8H 90 days PRN 3 inhalers 3RF shortness of breath or wheezing NS Coding Level of Care Code Est Pt Prev Care 40-64y(41363) Diagnoses Annual physical exam Z00.00 Mild intermittent asthma without complication J45.20 Asthma complication type: uncomplicated Asthma persistence: intermittent Asthma severity: mild Iron deficiency anemia secondary to inadequate dietary iron intake D50.8 Anemia type: iron deficiency Iron deficiency anemia type: inadequate dietary iron intake Migraine without status migrainosus, not intractable, unspecified migraine type G43.909 Intractability: not intractable Migraine type: unspecified Status migrainosus presence: without status migrainosus Anxiety F41.9 Bipolar affective disorder, current episode mixed, current episode severity unspecified F31.60 Active/Remission status: currently active Current bipolar episode type: mixed Current episode severity: unspecified Overweight (BMI 25.0-29.9) E66.3 Colon cancer screening Z12.11 Breast cancer screening by mammogram Z12. Cervical cancer screening Z12.4
== END 2023-06-25 11:01 | disposition home or self-care (01) ==
PROVIDERS: Visit Provider Internal Medicine
DX: Z00.00 Encounter for general adult medical examination without abnormal findings (principal); J45.20 Mild intermittent asthma, uncomplicated; D50.8 Other iron deficiency anemias; F31.60 Bipolar disorder, current episode mixed, unspecified; G43.909 Migraine, unspecified, not intractable, without status migrainosus; F41.9 Anxiety disorder, unspecified; E66.3 Overweight; Z12.31 Encounter for screening mammogram for malignant neoplasm of breast; Z98.891 History of uterine scar from previous surgery
CPT/HCPCS: 99396

== ENCOUNTER 2023-07-30 14:18 | Emergency (ER) | payer OTHER, SELFPAY ==
[2023-07-30 14:34] VITALS: BP 181/55; PULSE 76; RESP 16; TEMP 36.6; O2SAT 98; BMI 27.9
--- NOTE | 2023-07-30 14:35 | ED.GENADULT ---
HPI - General Adult General Chief complaint: Dizziness Stated complaint: dizzy Time Seen by Provider: 07/30/23 15:58 Source: patient Mode of arrival: ambulatory Limitations: no limitations History of Present Illness HPI narrative: Patient is a 48 year old assigned female at with a history of anemia presenting to the emergency department today with dizziness and feeling dehydrated. Patient states that over the last 7 days she has felt intermittently dizzy and dehydrated. Patient states that she has also felt intermittently nauseous and has vomited intermittently. Patient denies any lightheadedness, abdominal pain, fever, chills, blurry vision, double vision, loss of vision, chest pain, difficulty breathing, shortness of breath, back pain, night sweats, pain with urination, increased urinary frequency, increased urinary urgency, blood in her urine or stool, syncope or a near syncopal episode, recent trauma or falls, bowel incontinence, bladder incontinence, bowel retention, bladder retention, or any other complaints at this time. Onset (ago): day(s) () Severity: mild Relieving factors: none Exacerbating factors: none Associated symptoms: nausea/vomiting Treatments prior to arrival: none Related Data Previous Rx's Medication Instructions Recorded ibuprofen 800 mg tablet 800 mg PO TID PRN for fever or 06/17/22 pain 30 days #90 tabs Ventolin HFA 90 mcg/actuation 2 puff inhalation Q6-8H PRN 06/25/23 aerosol inhaler (albuterol sulfate) shortness of breath or wheezing 90 days #3 inhalers ferrous sulfate 325 mg (65 mg 325 mg PO DAILY 90 days #90 tabs 06/25/23 iron) tablet,delayed release meclizine 25 mg tablet 25 mg PO DAILY PRN dizziness #14 07/30/23 tabs Allergies Allergy/AdvReac Type Severity Reaction Status Date / Time No Known Allergies Allergy Mild NKA Verified 06/25/23 10:54 Review of Systems Constitutional: Constitutional: Reports no additional constitutional complaints, Denies chills, Denies fever(s) and Denies night sweats Eyes: Eyes: Reports no additional eye complaints, Denies blurry vision, Denies change in vision, Denies diplopia, Denies eye discharge, Denies loss of vision and Denies eye pain ENT: Reports dizziness Cardiovascular: Cardiovascular: Reports no additional cardiovascular complaints, Denies chest pain, Denies lightheadedness, Denies Loss of Consciousness and Denies dyspnea Respiratory: Respiratory: Reports no additional respiratory complaints and Denies dyspnea Gastrointestinal: Gastrointestinal: Reports no additional gastrointestinal complaints, Denies abdominal pain, Denies melena, Denies hematochezia, Denies change in bowel habits, Denies change in stool character, Reports nausea and Reports vomiting Genitourinary: Genitourinary: Denies hematuria, Denies urinary frequency, Denies dysuria, Denies urinary incontinence, Denies urinary hesitancy and Denies urinary urgency Musculoskeletal: Musculoskeletal: Reports no additional musculoskeletal complaints, Denies numbness and Denies tingling Neurologic: Reports dizziness, Denies loss of vision, Denies numbness and Denies tingling Psychiatric: Psychiatric: Reports no additional psychiatric complaints Endocrine: Endocrine: Reports no additional endocrine complaints Hematologic/Lymphatic: Hematologic/Lymphatic: Reports no additional hematologic/lymphatic complaints Allergic/Immunologic: Allergic/Immunologic: Reports no additional allergic/immunologic complaints PMFSH Past Medical History Attestation statement: The following information was validated with the patient. Source: old records reviewed and nursing notes reviewed Medical History Cervical cancer screening Breast cancer screening by mammogram Impaired fasting glucose Colon cancer screening Numbness of right foot Right foot pain Right ankle pain Tongue pain Nausea Headache Left shoulder pain Low back pain Neck pain Breast cancer screening Annual physical exam Viral illness Sprain and strain of right wrist Perianal cyst Discomfort of both ears Neck pain Impacted cerumen of both ears Neck pain on left side Skin mole Tenosynovitis of thumb Tenosynovitis of forearm Overweight (BMI 25.0-29.9) Medical marijuana use Bipolar disorder Anxiety Insomnia Migraine Asthma Surgical History Status post abdominal hysterectomy (~02/09/13) History of section (~07/2011) History of breast augmentation (~02/18/10) History of incision and drainage (~2008) Family History Family History Father Unknown family medical history Mother Diabetes mellitus Hypertension Asthma Paternal Grandfather Alzheimer's dementia Social History Social History Housing: Apartment Alcohol intake: never Patient Tobacco Use Status: Never used Tobacco e-Cigarette/Vaping Use: Never Used Second Hand Smoke Exposure: Yes Advance Directives: No Advance Directives Information Provided: No service: No Current occupational status: employed Cognitive needs: No Hearing needs: No Vision needs: Yes (needs to see eye doctor) Physical Exam ED Vital Signs: Vital Signs - 24 hr 07/30/23 14:34 07/30/23 16:16 Temperature 97.9 F 98.2 F Pulse Rate 76 67 Respiratory Rate 16 15 Blood Pressure 181/55 H 129/75 Pulse Oximetry 98 98 Oxygen Delivery Method Room Air Room Air BMI result Body Mass Index 27.9 Const General: cooperative, no acute distress, alert and awake Nutritional Appearance: well nourished Orientation/consciousness: patient oriented x3 Limitations: no limitations HENMT Head: Yes normal to inspection and Yes atraumatic Ears: hearing grossly normal bilaterally and external ears normal General nose exam: Normal external nose present, no nasal discharge noted and no epistaxis Face and sinus: Yes normal facial exam, No abrasion and No laceration Mouth: Normal oral and palatal mucosa present, no drooling and no muffled voice Eyes General: appearance normal, both eyes and all related structures Periorbital: periorbital findings normal Eyelids: Yes eyelids normal Conjunctivae: conjunctivae normal Pupils: Equal, round and reactive pupils present EOM: EOMs intact bilaterally Neck Neck: Yes normal visual inspection, Yes full ROM and Yes no lymphadenopathy Chest Chest palpation & inspection: normal inspection of the chest Resp Effort & Inspection: normal respiratory effort and able to speak in complete sentences Auscultation: clear to auscultation bilaterally Cardio Rate: regular rate Rhythm: regular rhythm GI Inspection: Yes normal to inspection Palpation (GI): Soft to palpation, not firm, nontender and no guarding Neuro General: patient oriented x3 and moves all extremities Cranial nerves: Yes Equal, round and reactive pupils present Cognition (Neuro): normal cognition Motor exam (neuro): 5/5 motor strength present throughout Sensory Exam: Normal double simultaneous stimulation for sensation Coordination: [id number]-[id number] test normal Extrem General: Yes normal to inspection, Yes full ROM and Yes capillary refill normal Psych Appearance: grossly normal Mental Status: mental status grossly normal Affect: normal affect Attitude: cooperative Thought process: Normal thought process present Thought content: Normal thought content present Insight: Good insight present (Psych) Course Course Course Narrative: Patient complains of dizziness for 5 days that she describes as everything moving and then developed nausea vomiting and diarrhea No chest pain no cough no fever, tolerates p.o. but then gets nauseous later Labs ordered, EKG ordered This is rapid medical exam in triage pending full evaluation by ER provider for history and physical evaluation of all results and disposition Medications Administered Generic Name Dose Route Start Last Admin Trade Name Freq PRN Reason Stop Dose Admin Sodium Chloride 1,000 mls @ 999 mls/hr 07/30/23 16:30 07/30/23 16:56 Ns IV 07/30/23 17:30 999 mls/hr .Q1H1M MARC Administration Discontinued Medications Generic Name Dose Route Start Last Admin Trade Name Freq PRN Reason Stop Dose Admin Al Hydroxide/Mg Hydroxide 15 ml 07/30/23 16:30 07/30/23 16:56 Magnesium Hydrox/Alum Hydrox 30 Ml Oral.Susp PO 07/30/23 16:31 15 ml ONCE ONE Administration Meclizine HCl 25 mg 07/30/23 16:30 07/30/23 16:56 Meclizine Hcl 25 Mg Tablet PO 07/30/23 16:31 25 mg ONCE ONE Administration Ondansetron HCl 4 mg 07/30/23 16:30 07/30/23 16:56 Ondansetron Hcl 4 Mg/2 Ml Vial IVPUSH 07/30/23 16:31 4 mg ONCE ONE Administration Pantoprazole Sodium 40 mg 07/30/23 16:30 07/30/23 16:56 Pantoprazole Sodium 40 Mg/10 Ml Vial IVPUSH 07/30/23 16:31 40 mg ONCE ONE Administration Medical Decision Making Medical Decision Making [facility] Narrative: Patient is a 48 year old assigned female at with a history of anemia presenting to the emergency department today with intermittent dizziness, nausea, and vomiting. Patient's physical exam was unremarkable. Patient's blood work was unremarkable. Patient's urine showed no acute process. Patient's EKG was unremarkable. I explained my physical exam findings as well as all test results to the patient. I answered all questions asked by the patient. Patient's clinical presentation most consistent with BPPV. Patient received IV fluids, a GI cocktail, and antivert which she stated helped her symptoms significantly. I stressed the importance of the patient taking her medication as prescribed. I stressed the importance of the patient following up with her primary care provider. I stressed the importance of the patient returning to the emergency department immediately if her symptoms were to worsen or if she were to develop any dizziness, shortness of breath, difficulty breathing, chest pain, blurry vision, loss of vision, nausea, vomiting, abdominal pain, fever, chills, back pain, or any other complaints. Patient verbalized agreement and understanding with this treatment plan and discharge. Differential Diagnosis Differential Diagnoses: The differential diagnosis associated with the presentation includes BPPV Viral illness Dizziness Admission/Observation Consideration of admission/observation: Escalation of care including admission/observation considered Patient would have been admitted to the hospital had her work up had any findings where hospital admission was appropriate and her clinical presentation warranted hospital admission. Lab Data MDM Lab Attestation statement: I reviewed the patient's lab results. My interpretation of these studies and their corresponding values is that they are grossly normal. 07/30/23 15:00 07/30/23 15:00 Labs: Lab Results 07/30/23 07/30/23 Range/Units 15:00 15:26 WBC 7.2 (4.8-10.8) X10*3/uL RBC 5.04 (4.20-5.50) X10*6/uL Hgb 15.2 (12.0-16.0) g/dl Hct 44.9 (37.0-47.0) % MCV 89.1 (80.0-98.0) fL MCH 30.2 (27.0-33.0) pg MCHC 33.9 (31.0-35.0) g/dl RDW 12.2 (11.0-16.0) % Plt Count 241 (160-400) X10*3/uL MPV 9.9 (9.4-12.3) fL Immature Gran % (Auto) 0.3 (0.0-0.4) % Neut % (Auto) 56.1 (45-73) % Lymph % (Auto) 33.4 (20-40) % [place] % (Auto) 8.5 (2-11) % Eos % (Auto) 1.0 (0-4) % Baso % (Auto) 0.7 (0-2) % Lymph # (Auto) 2.4 (1.2-4.9) X10*3/uL [place] # (Auto) 0.6 (0.1-1.2) X10*3/uL Eos # (Auto) 0.1 (0.0-0.4) X10*3/uL Baso # (Auto) 0.1 (0.0-0.2) X10*3/uL Abs Immat Gran (auto) 0.02 (0.00-0.03) X10*3/uL Absolute Neuts (auto) 4.0 (2.0-8.3) x10*3/uL Absolute Nucleated RBC 0.000 (0.0-0.012) X10*3/uL Nucleated RBC % (auto) 0.0 (0.0-0.2) /100WBC Sodium 138 (135-145) mmol/L Potassium 4.4 (3.3-5.1) mmol/L Chloride 107 (96-108) mmol/L Carbon Dioxide 25 (22-29) mmol/L Anion Gap 10 L (12-20) BUN 12 (9-16) mg/dL Creatinine 0.77 (0.5-1.4) mg/dL Estim Creat Clear Calc 76.7 Estimated GFR > 60 Random Glucose 89 (60-115) mg/dL Calcium 9.5 D (8.4-10.2) mg/dL Total Bilirubin 0.5 (0.0-1.0) mg/dL Direct Bilirubin 0.1 (0.0-0.5) mg/dL AST 19 (5-31) U/L ALT 27 (0-31) U/L Alkaline Phosphatase 78 (39-117) U/L Total Protein 7.2 (6.5-8.0) g/dL Albumin 4.2 (3.5-5.0) g/dL Lipase 23 (8-78) U/L Urine Color Yellow Urine Appearance Clear Urine pH 5.5 (5.0-9.0) Ur Specific [place] 1.015 (1.005-1.025) Urine Protein Negative (Neg-Trace) mg/dL Urine Glucose (UA) Negative (Negative) mg/dL Urine Ketones Trace (Negative) mg/dL Urine Blood Negative (Negative) Urine Nitrite Negative (Negative) Ur Leukocyte Esterase Negative (Negative) Urine Test NEGATIVE (NEGATIVE) Independent Interpretation I performed an independent interpretation of an: EKG Interpretation: Vent. Rate: 067 BPM Atrial Rate: 067 BPM P-R Int: 148 ms QRS Dur: 068 ms QT Int: 380 ms P-R-T Axes: 057 039 030 degrees QTc Int: 401 ms Normal sinus rhythm with sinus arrhythmia Normal ECG When compared with ECG of 28-MAY-2021 17:43, No significant change was found DD/ 1454 Discharge Plan Discharge Clinical Impression: Benign paroxysmal positional vertigo Patient Disposition: Home, Self-Care Instructions: Benign Paroxysmal Positional Vertigo (ED), Dizziness (ED) Additional Instructions: Follow up with your primary care provider. Return to the emergency department immediately if your symptoms worsen or if you develop any dizziness, shortness of breath, difficulty breathing, chest pain, blurry vision, loss of vision, nausea, vomiting, abdominal pain, fever, chills, back pain, or any other complaints. Prescriptions: New meclizine 25 mg tablet 25 mg PO DAILY PRN (Reason: dizziness) Qty: 14 0RF No Action ferrous sulfate 325 mg (65 mg iron) tablet,delayed release (DR/EC) 325 mg PO DAILY 90 Days Qty: 90 3RF albuterol sulfate [Ventolin HFA] 90 mcg/actuation HFA aerosol inhaler 2 puff inhalation Q6-8H PRN (Reason: shortness of breath or wheezing) 90 Days Qty: 3 3RF ibuprofen 800 mg tablet 800 mg PO TID PRN (Reason: for fever or pain) 30 Days Qty: 90 1RF Rx Instructions: Take with food Referrals: Iman Santiago NP [Primary Care Provider] - Print Language: Azeri
--- NOTE | 2023-07-30 14:38 | ECG_ITS ---
Test Reason : DIZZINESS Blood Pressure : / mmHG Vent. Rate : 067 BPM Atrial Rate : 067 BPM P-R Int : 148 ms QRS Dur : 068 ms QT Int : 380 ms P-R-T Axes : 057 039 030 degrees QTc Int : 401 ms Normal sinus rhythm with sinus arrhythmia Normal ECG When compared with ECG of 28-MAY-2021 17:43, No significant change was found Referred By: Linwood Benavides Electronically Signed By:JUN DE LA CRUZ MD
[2023-07-30 15:11] LABS: MANUAL DIFF FLAG NO
[2023-07-30 15:14] LABS: Basophils Absolute Auto 0.1 X10*3/uL (0.0-0.2); Basophils Percent Auto 0.7 % (0-2); Eosinophils Absolute Auto 0.1 X10*3/uL (0.0-0.4); Hematocrit 44.9 % (37.0-47.0); Hemoglobin 15.2 g/dl (12.0-16.0); Imm Gran Abs Auto 0.02 X10*3/uL (0.00-0.03); Imm Gran Pct Auto 0.3 % (0.0-0.4); Lymphocytes Absolute Auto 2.4 X10*3/uL (1.2-4.9); Lymphocytes Percent Auto 33.4 % (20-40); Mean Corpuscular HGB Conc 33.9 g/dl (31.0-35.0); Mean Corpuscular Hemoglobin 30.2 pg (27.0-33.0); Mean Corpuscular Volume 89.1 fL (80.0-98.0); Mean Platelet Volume 9.9 fL (9.4-12.3); Monocytes Absolute Auto 0.6 X10*3/uL (0.1-1.2); Monocytes Percent Auto 8.5 % (2-11); Neutrophils Percent Auto 56.1 % (45-73); Platelet Count 241 X10*3/uL (160-400); Red Blood Count 5.04 X10*6/uL (4.20-5.50); Red Cell Distribution Width 12.2 % (11.0-16.0); White Blood Count 7.2 X10*3/uL (4.8-10.8)
[2023-07-30 15:29] LABS: Alanine Aminotransferase 27 U/L (0-31); Albumin Level 4.2 g/dL (3.5-5.0); Alkaline Phosphatase 78 U/L (39-117); Anion Gap 10 (12-20); Aspartate Amino Transferase 19 U/L (5-31); Bilirubin Direct 0.1 mg/dL (0.0-0.5); Bilirubin Total 0.5 mg/dL (0.0-1.0); Blood Urea Nitrogen 12 mg/dL (9-16); Calcium 9.5 mg/dL (8.4-10.2); Carbon Dioxide 25 mmol/L (22-29); Chloride 107 mmol/L (96-108); Creatinine Clr Calc Pharmacy 76.7; Estimated Glomerular Filt Rate > 60; Glucose Random 89 mg/dL (60-115); Lipase 23 U/L (8-78); Potassium 4.4 mmol/L (3.3-5.1); Sodium 138 mmol/L (135-145); Total Protein 7.2 g/dL (6.5-8.0)
[2023-07-30 15:37] LABS: Appearance Urine Clear; Color Urine Yellow; Glucose Urine UA Negative (Negative); Leukocyte Esterase Urine Negative (Negative); Nitrite Urine Negative (Negative); PH 5.5 (5.0-9.0); Specific Gravity - Urine 1.015 (1.005-1.025); Urine Blood Negative (Negative); Urine Ketones Trace mg/dL (Negative); Urine Protein Negative (Neg-Trace)
[2023-07-30 15:38] LABS: UPreg QC Valid YES; Urine Pregnancy NEGATIVE (NEGATIVE)
[2023-07-30 16:16] VITALS: BP 129/75; PULSE 67; RESP 15; TEMP 36.8; O2SAT 98
[2023-07-30] MEDS: Pantoprazole Sodium 40 MG/10 ML VIAL IVPUSH (16:56)
[2023-07-30] MEDS: Meclizine HCl 25 MG TABLET PO (16:56)
[2023-07-30] MEDS: Magnesium Hydrox/Alum Hydrox 30 ML ORAL.SUSP 15 ML PO (16:56)
[2023-07-30] MEDS: ondansetron HCL 4 MG/2 ML VIAL IVPUSH (16:56)
[2023-07-30] MEDS: 0.9 % Sodium Chloride 1,000 ML 999 ML IV (16:56)
== END 2023-07-30 17:46 | disposition home or self-care (01) ==
PROVIDERS: Physician Assistant Medical; Emergency Provider Student in an Organized Health Care Education/Training Program; PCP Nurse Practitioner Family
DX: H81.10 Benign paroxysmal vertigo, unspecified ear (principal); E86.0 Dehydration; R11.0 Nausea; Z79.899 Other long term (current) drug therapy
CPT/HCPCS: 36415; 80048; 80076; 81003; 81025; 83690; 85025; 93005; 96361; 96374; 96375; 99284; 99285; C9113; J2405

== ENCOUNTER 2023-09-25 | Outpatient (REF) | payer OTHER, SELFPAY ==
[2023-09-30 12:39] LABS: CT PCR NOT DETECTED (Not Detect.); NG PCR NOT DETECTED (Not Detect.)
== END 2023-09-25 00:01 | disposition home or self-care (01) ==
LOC: HO.HHCLNP
PROVIDERS: Visit Provider Advanced Practice Midwife
DX: Z20.2 Contact with and (suspected) exposure to infections with a predominantly sexual mode of transmission (principal)
CPT/HCPCS: 0353U

== ENCOUNTER 2023-09-25 09:43 | Outpatient (AMB) | payer OTHER, SELFPAY ==
--- NOTE | 2023-09-25 09:44 | MHC.OFFVIS ---
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 Required: No Information Interpreted: non-clinical & clinical Hospice Patient Care Secretary: Hospice Patient Care Secretary Present (Aidyn) Allergies No Known Allergies Allergy (Mild, Verified 09/25/23 09:45) NKA Medication List - Last Reconciled 09/25/23 by Miranda Donaldson CNM ferrous sulfate 325 mg PO DAILY 90 days ibuprofen 800 mg PO TID PRN 30 days meclizine 25 mg PO DAILY PRN Ventolin HFA 90 mcg/actuation (albuterol sulfate) 2 puffs inhalation Q6-8H PRN 90 days NS Is last menstrual period known: No Patient : No HPI 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 She used to see Dr. Jacome and the previous midwifery group for care. Her last delivery was a repeat where risk of a placenta accreta and also some anomaly was noted and she was transferred for care to [facility] and had a planned repeat and there indeed was difficulty with her placenta and she ended up with a hysterectomy and a 6 hour surgery with other surgeons involved as well. Her child was delivered just a couple of weeks early and is doing fine and is 12 years old and doing well and is on the autism spectrum but mild. Patient herself feels she is doing well she does have some challenges with vertigo and she is had other challenges with her years. She has breast implants she know she is overdue to get her mammogram it has been ordered but she just needs to schedule it. She did have ASCUS in the past on a Pap smear before her hysterectomy so she does need vaginal Pap smear. She works in [employer] of the [employer] in [place] she takes good care of herself she is not worried about STDs but accepts cultures while I am doing the Pap. [facility] Medical History (Updated 09/25/23 @ 10:38 by Miranda Donaldson CNM) Breast cancer screening by mammogram Cervical cancer screening Impaired fasting glucose Colon cancer screening Numbness of right foot Right foot pain Right ankle pain Tongue pain Nausea Headache Left shoulder pain Low back pain Neck pain Breast cancer screening Annual physical exam Viral illness Sprain and strain of right wrist Perianal cyst Discomfort of both ears Neck pain Impacted cerumen of both ears Neck pain on left side Skin mole Tenosynovitis of thumb Tenosynovitis of forearm Overweight (BMI 25.0-29.9) Medical marijuana use Bipolar disorder Anxiety Insomnia Migraine Asthma Surgical History (Updated 09/25/23 @ 10:38 by Miranda Donaldson CNM) Status post abdominal hysterectomy (~02/09/13) History of section (~07/2011) History of breast augmentation (~02/18/10) History of incision and drainage (~2008) Family History Father Unknown family medical history Mother Diabetes mellitus Hypertension Asthma Paternal Grandfather Alzheimer's dementia Social History Housing: Apartment Alcohol intake: never Patient Tobacco Use Status: Never used Tobacco e-Cigarette/Vaping Use: Never Used Second Hand Smoke Exposure: Yes Substance Use Type: Marijuana service: No Current occupational status: employed Cognitive needs: No Hearing needs: No Vision needs: Yes (needs to see eye doctor) Female Reproductive History Menstrual Age of Menarche: 14 Total pregnancies: 7 Full term: 5 Number of Living Children: 5 Ab induced: 2 Date of last pap smear: 08/30/12 (negative) History of abnormal pap smear: Yes (2003 ASCUS) Physical Exam Vital Signs: Last Vital Signs BP 126/80 09/25/23 09:45 BMI result Body Mass Index 27.7 Const General: healthy appearing, comfortable, no acute distress, well developed and alert Nutritional Appearance: average body habitus Orientation/consciousness: patient oriented x3 Limitations: no limitations HEENT Head: Yes normocephalic Neck Neck: Yes normal visual inspection Chest Chest palpation & inspection: normal inspection of the chest Breast/axilla inspection: normal inspection of the breasts and normal inspection of the axillae Breast/axilla palpation: normal palpation of the breasts and normal palpation of the axillae Resp Effort & Inspection: normal respiratory effort GI Inspection: Yes normal to inspection, No Abdominal wall edema and No distended Palpation (GI): Soft to palpation and nontender Other: Vagina pink neither moist nor dry no cervix or uterus present status post hysterectomy adnexa within normal limits extremely good tone with Kegel.. External Female Exam: normal external appearance and normal appearance of the urethra Speculum Exam - Vagina: normal appearance of the vagina and normal vaginal discharge Bimanual exam- vagina & uterus: normal bimanual exam Bimanual Exam- Adnexa, other: normal adnexae, no masses, normal and No adnexal tenderness Neuro General: patient oriented x3 Assessment & Plan Assessment & Plan (1) Well woman exam with routine gynecological exam: Code(s): Z01.419 - Encounter for gynecological examination (general) (routine) without abnormal findings (2) Hx of abnormal cervical Pap smear: Comment: History of ASCUS 2003. Patient had total hysterectomy at 2012, overdue for Pap. Code(s): Z87.42 - Personal history of other diseases of the female genital tract Plan -----Discussed in this visit the following: healthy balanced diet, regular and consistent exercise, getting recommended health screens, doing the best she can for her particular health concerns, kegel exercises, pap smear screening and followup recommendations, mammography screening and SBE, normal changes in cycles in her life stage--- . 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 She is doing very well right now she will be making an appointment with her primary and she will be making her appointment for her mammogram. She and her family are doing well her youngest who is 10 years old is doing very well. She named her WALDO SAMANO Coding Level of Care Code New Pt Prev Care 40-64y(67088) Diagnoses Well woman exam with routine gynecological exam Z01.419 Hx of abnormal cervical Pap smear Z87.42
[2023-09-25 09:45] VITALS: BP 126/80; BMI 27.7
== END 2023-09-25 10:33 | disposition home or self-care (01) ==
LOC: HO.HWSM 09:43
PROVIDERS: PCP Internal Medicine; Visit Provider Advanced Practice Midwife
DX: Z01.419 Encounter for gynecological examination (general) (routine) without abnormal findings (principal); Z87.42 Personal history of other diseases of the female genital tract
CPT/HCPCS: 99386

== ENCOUNTER 2023-09-25 09:43 | Outpatient (REF) | payer OTHER, SELFPAY | END 2023-09-25 09:44 | disposition home or self-care (01) | LOC: HO.LNP 09:43 | PROVIDERS: PCP Internal Medicine; Visit Provider Advanced Practice Midwife | DX: Z01.419 Encounter for gynecological examination (general) (routine) without abnormal findings (principal); Z87.42 Personal history of other diseases of the female genital tract; Z79.899 Other long term (current) drug therapy | CPT/HCPCS: 87624; 88142; 99386 ==

== ENCOUNTER 2024-06-06 08:15 | Outpatient (REF) | payer OTHER, SELFPAY ==
[2024-06-06 09:40] LABS: Estimated Average Glucose 105 mg/dL; Hemoglobin A1c % 5.3 % (<6.0)
[2024-06-06 09:45] LABS: Appearance Urine Clear; Color Urine Yellow; Glucose Urine UA Negative (Negative); Leukocyte Esterase Urine Negative (Negative); Nitrite Urine Negative (Negative); PH 5.5 (5.0-9.0); Specific Gravity - Urine <= 1.005 (1.005-1.025); Urine Blood Negative (Negative); Urine Ketones Negative (Negative); Urine Protein Negative (Neg-Trace)
[2024-06-06 10:04] LABS: Cholesterol 227 mg/dL (<200); HDL Cholesterol 58 mg/dL (>40); LDL Cholesterol Calculated 143 mg/dL (<100); Triglycerides 130 mg/dL (<150)
[2024-06-06 10:27] LABS: Vitamin D 25-OH Total 38.6 ng/mL (>30)
== END 2024-06-06 08:16 | disposition home or self-care (01) ==
LOC: HO.LAB 08:15
PROVIDERS: Absent Provider Advanced Practice Midwife; PCP Internal Medicine; Visit Provider Internal Medicine
DX: Z00.00 Encounter for general adult medical examination without abnormal findings (principal); E78.00 Pure hypercholesterolemia, unspecified; R30.0 Dysuria; E55.9 Vitamin D deficiency, unspecified; R73.01 Impaired fasting glucose
CPT/HCPCS: 36415; 80061; 81003; 82306; 83036; 84443

== ENCOUNTER 2024-06-06 08:50 | Emergency (ER) | payer OTHER, SELFPAY ==
--- NOTE | ~2024-06-06 | XR_ITS ---
EXAMINATION: XR CHEST CLINICAL INFORMATION: Dizziness COMPARISON: None available. TECHNIQUE: 2 views of the chest were obtained. FINDINGS: No significant abnormality is noted involving the heart, lungs, mediastinum, bony thorax or soft tissues. XR/XR chest 2V IMPRESSION: Unremarkable examination. Electronically signed by: Miller Kaufman MD 06/06/2024 09:44 AM EDT RP
[2024-06-06 08:57] VITALS: BP 106/64; PULSE 70; RESP 16; TEMP 36.4; O2SAT 98; BMI 25.5
--- NOTE | 2024-06-06 09:01 | ECG_ITS ---
Test Reason : dizzy Blood Pressure : / mmHG Vent. Rate : 058 BPM Atrial Rate : 058 BPM P-R Int : 142 ms QRS Dur : 076 ms QT Int : 390 ms P-R-T Axes : 078 050 044 degrees QTc Int : 382 ms Sinus bradycardia with sinus arrhythmia Otherwise normal ECG When compared with ECG of 30-JUL-2023 14:54, No significant change was found Referred By: Generic ED Physician Electronically Signed By:LEO ACOSTA
[2024-06-06 09:13] LABS: MANUAL DIFF FLAG NO
[2024-06-06 09:15] LABS: Basophils Percent Auto 0.6 % (0-2); Eosinophils Absolute Auto 0.1 X10*3/uL (0.0-0.4); Eosinophils Percent Auto 1.1 % (0-4); Hematocrit 43.2 % (37.0-47.0); Hemoglobin 14.8 g/dl (12.0-16.0); Imm Gran Abs Auto 0.02 X10*3/uL (0.00-0.03); Imm Gran Pct Auto 0.3 % (0.0-0.4); Lymphocytes Absolute Auto 2.5 X10*3/uL (1.2-4.9); Lymphocytes Percent Auto 41.2 % (20-40); Mean Corpuscular HGB Conc 34.3 g/dl (31.0-35.0); Mean Corpuscular Hemoglobin 30.8 pg (27.0-33.0); Mean Corpuscular Volume 89.8 fL (80.0-98.0); Mean Platelet Volume 9.7 fL (9.4-12.3); Monocytes Absolute Auto 0.5 X10*3/uL (0.1-1.2); Monocytes Percent Auto 7.6 % (2-11); Neutrophils Percent Auto 49.2 % (45-73); Platelet Count 242 X10*3/uL (160-400); Red Blood Count 4.81 X10*6/uL (4.20-5.50); Red Cell Distribution Width 12.3 % (11.0-16.0); White Blood Count 6.2 X10*3/uL (4.8-10.8)
[2024-06-06 09:29] LABS: Alanine Aminotransferase 19 U/L (0-31); Alkaline Phosphatase 65 U/L (39-117); Anion Gap 13 (12-20); Aspartate Amino Transferase 16 U/L (5-31); Bilirubin Total 0.4 mg/dL (0.0-1.0); Blood Urea Nitrogen 13 mg/dL (9-16); Calcium 8.9 mg/dL (8.4-10.2); Carbon Dioxide 23 mmol/L (22-29); Chloride 109 mmol/L (96-108); Estimated Glomerular Filt Rate > 60; Glucose Random 103 mg/dL (60-115); Potassium 3.7 mmol/L (3.3-5.1); Sodium 141 mmol/L (135-145); Total Protein 6.7 g/dL (6.5-8.0)
[2024-06-06 12:15] LABS: HCG Quantitative 6 mIU/mL
== END 2024-06-06 14:34 | disposition left against medical advice (07) ==
PROVIDERS: Physician Assistant Medical; Emergency Provider Emergency Medicine; PCP Internal Medicine
DX: E86.0 Dehydration (principal); R11.2 Nausea with vomiting, unspecified; R42 Dizziness and giddiness; I49.9 Cardiac arrhythmia, unspecified; Z79.899 Other long term (current) drug therapy
CPT/HCPCS: 36415; 71046; 80053; 82550; 84702; 85025; 93005; 99281; 99283

== ENCOUNTER 2024-06-07 15:26 | Outpatient (AMB) | payer OTHER, SELFPAY ==
[2024-06-07 15:29] VITALS: BP 116/68; PULSE 70; BMI 24.9
--- NOTE | 2024-06-07 15:29 | MHC.PC.OV ---
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 Accompanied by: Self / Same As Patient Allergies No Known Allergies Allergy (Mild, Verified 06/07/24 15:52) NKA Medication List - Last Reconciled 06/07/24 by Perez Noriega MD ferrous sulfate 325 mg PO DAILY 90 days ibuprofen 800 mg PO TID PRN 30 days meclizine 25 mg PO DAILY PRN Ventolin HFA 90 mcg/actuation (albuterol sulfate) 2 puffs inhalation Q6-8H PRN 90 days NS Tobacco use date assessed: 06/07/24 Dental Screening Dental Screen Date: 06/07/24 HPI [facility] [place] [facility] 06/06 dehydration vomiting HPI Details Patient comes in today for her F follow up visit She reportedly went to the ER at [facility] yesterday for vomiting, weakness and increased hot flashes - was concerned that she was getting dehydrated at the time States that she waited for over 6 to 8 hours but she just had some labs drawn and chest x-rays done and was not yet seen by the doctor States that she finally ended up leaving without waiting to be seen as she did not want to wait any longer (was supposedly waiting for almost half a day at the waiting room) She states that she is presently feeling better and her nausea/vomiting appears to have cleared up since She has also been able to eat and drink earlier this morning without feeling nauseous or throwing up She denies any headaches or dizziness Denies any chest pains, no SOB No abdominal pain and no change in bowel habits noted She would like to know how her labs done yesterday came out [facility] Medical History (Updated 06/12/24 @ 17:21 by Perez Noriega MD) Pure hypercholesterolemia Breast cancer screening by mammogram Impaired fasting glucose Numbness of right foot Headache Low back pain Neck pain Perianal cyst Impacted cerumen of both ears Skin mole Tenosynovitis of thumb Tenosynovitis of forearm Overweight (BMI 25.0-29.9) Medical marijuana use Bipolar disorder Anxiety Insomnia Migraine Asthma Surgical History Status post abdominal hysterectomy (~02/09/13) History of section (~07/2011) History of breast augmentation (~02/18/10) History of incision and drainage (~2008) Family History Father Unknown family medical history Mother Diabetes mellitus Hypertension Asthma Paternal Grandfather Alzheimer's dementia Social History Housing: Apartment Alcohol intake: never Patient Tobacco Use Status: Never used Tobacco e-Cigarette/Vaping Use: Never Used Second Hand Smoke Exposure: Yes Substance Use Type: Marijuana service: No Current occupational status: employed Cognitive needs: No Hearing needs: No Vision needs: Yes (needs to see eye doctor) Female Reproductive History Menstrual Age of Menarche: 14 Questionnaire PHQ-9 Over the last 2 weeks, how often have you been bothered by any of the following problems? 1. Little interest or pleasure in doing things: not at all 2. Feeling down, depressed, or hopeless: not at all 3. Trouble falling or staying asleep, or sleeping too much: not at all 4. Feeling tired or having little energy: not at all 5. Poor appetite or overeating: not at all 6. Feeling bad about yourself - or that you are a failure or have let yourself or your family down: not at all 7. Trouble concentrating on things, such as reading the newspaper or watching television: not at all 8. Moving or speaking so slowly that other people could have noticed. Or the opposite - being so fidgety or restless that you have been moving around a lot more than usual: not at all 9. Thoughts that you would be better off or of hurting yourself in some way: not at all Total score: 0 Depression Screening Interpretation: Negative Depression Screening Done: Yes 67200 - PHQ-9 Billing: Yes Source: Developed by Drs. Solomon Duval, Alexa Degroot, José Miguel Lundberg and colleagues, with an educational zulema from [employer]. Thrive Questionnaire Date Thrive assessed: 06/07/24 I am a: Patient What is your living situation today?: I have a steady place to live Within the past 12 months, did the food you bought not last and you didn't have the money to get more?: Never true Within the past 12 months, did you worry whether your food would run out before you got money to buy more?: Never true Do you have trouble paying for medicines?: No Do you have trouble getting transportation to medical appointments?: No Do you have trouble paying your heating and electricity bill?: No Do you have trouble taking care of your child, family member or friend?: No Do you have trouble with day-to-day activities such as bathing, preparing meals, shopping, managing finances, etc.?: No Are you currently unemployed and looking for a job?: No Are you interested in more education?: No Please select the resources that you would like help with: None Currently or been in a relationship where the following occur: No concerns reported THRIVE Score: 0 AUDIT C Alcohol Use Questionnaire (AUDIT-C) 1. How often do you have a drink containing alcohol?: Never 3. How often do you have six or more drinks on one occasion?: Never Total Score: 0 Score Reviewed/Action Taken: Yes MALINA-7 AMB Questionnaire MALINA-7 Date MALINA - 7 assessed: 06/07/24 Feeling nervous, anxious, or on edge: 0 = Not at all Not being able to stop or control worryin = Not at all Worrying too much about different things: 0 = Not at all Trouble relaxin = Not at all Being so restless that it is hard to sit still: 0 = Not at all Becoming easily annoyed or irritable: 0 = Not at all Feeling afraid as if something awful might happen: 0 = Not at all Total MALINA-7 score (0-4 normal; 5-9 mild; 10-14 moderate; 15-21 severe): 0 Source: Developed by Drs. Solomon Duval, Alexa Degroot, José Miguel Lundberg and colleagues, with an educational zulema from [employer]. Review of Systems Const Denies chills, Denies fatigue, Denies fever(s) and Denies headache(s) ENT Denies dysphagia, Denies dizziness, Denies otalgia, Denies headache(s), Denies neck pain, Denies odynophagia and Denies sore throat Card Denies chest pain, Denies palpitations and Denies dyspnea Resp Denies cough and Denies dyspnea GI Denies abdominal pain, Denies constipation, Denies dysphagia, Denies heartburn, Denies diarrhea, Denies nausea, Denies odynophagia and Denies vomiting Denies difficulty voiding, Denies nocturia, Reports hot flashes (occasionally) and Denies dysuria Musc Denies back pain and Denies neck pain Skin/Breast Denies rash Neuro Denies dizziness and Denies headache(s) Endo Denies fatigue and Denies palpitations Physical exam (Primary Care) Vital Signs: Last Vital Signs Pulse 70 06/07/24 15:29 BP 116/68 06/07/24 15:29 Oxygen Delivery Method Room Air 06/07/24 15:29 BMI result Body Mass Index 24.9 Tobacco/Smoking Status: Tobacco use Status Tobacco use date assessed 06/07/24 06/07/24 15:30 Patient Tobacco Use Status Never used Tobacco 06/07/24 15:30 e-Cigarette/Vaping Use Never Used 06/07/24 15:30 PHQ-9: PHQ-9 Score PHQ-9: Total score 0 06/07/24 15:54 Depression Screening Interpretation: Negative Thrive Assessment: Date of Thrive Assessment Date Thrive assessed 06/07/24 06/07/24 15:30 Currently or been in a relationship where the following occur: No concerns reported Const General: no acute distress and alert HENMT Ears: TM's normal bilaterally and EAC's normal Throat: Yes posterior oropharynx normal and Yes tonsils normal (no TP congestion) Neck Neck: Yes no lymphadenopathy and Yes supple Thyroid: Thyroid normal Resp Auscultation: clear to auscultation bilaterally, no rales and no wheezes Cardio Rate: regular rate Rhythm: regular rhythm Heart sounds: no murmurs GI Palpation (GI): Soft to palpation and nontender Auscultation: normal bowel sounds General: Yes no CVA tenderness Back/Spine/Pelvis Back: no CVA tenderness Thoracic/Lumbar Spine: No lumbar spinal tenderness Skin Rashes: no rashes Extrem General: Yes no clubbing, cyanosis or edema Results Reviewed Results Reviewed: Laboratory Tests 06/06/24 06/06/24 08:45 09:08 WBC 6.2 Hgb 14.8 Hct 43.2 Plt Count 242 Sodium 141 Potassium 3.7 Creatinine 0.79 Estimated GFR > 60 Random Glucose 103 Hemoglobin A1c % 5.3 Calcium 8.9 D AST 16 ALT 19 Triglycerides 130 Cholesterol 227 H LDL Cholesterol, Calc 143 H HDL Cholesterol 58 25-OH Vitamin D Total 38.6 TSH 0.50 Beta HCG, Quant 6 Ur Specific [place] <= 1.005 Urine Protein Negative Urine Glucose (UA) Negative Urine Blood Negative Urine Nitrite Negative Ur Leukocyte Esterase Negative Assessment and Plan Assessment & Plan (1) Pure hypercholesterolemia: Code(s): E78.00 - Pure hypercholesterolemia, unspecified Plan: Results of her labs done yesterday reviewed and discussed with patient - she is cautioned that her total and LDL cholesterol levels on her recent labs are elevated and her total cholesterol is higher than when it was previously checked back in 2018 Discussed low cholesterol diet (2) Viral gastroenteritis: Code(s): A08.4 - Viral intestinal infection, unspecified Plan: She is advised that her symptoms (vomiting and weakness ) are likely due to some GI virus and as her symptoms have since subsided and her labs done yesterday did not reveal any significantly abnormal findings, no further intervention or work ups are needed at this time Advised that based on her lab results from yesterday, she was not significantly dehydrated at the time She is encouraged to continue to increase her oral fuid intake regularly (3) Asthma: Code(s): J45.909 - Unspecified asthma, uncomplicated Qualifiers: Asthma severity: mild Asthma persistence: intermittent Asthma complication type: uncomplicated Qualified Code(s): J45.20 - Mild intermittent asthma, uncomplicated Plan: Controlled/stable Continue Albuterol HFA 1 to 2 inhalations Q 6 hours PRN (4) Anemia: Code(s): D64.9 - Anemia, unspecified Qualifiers: Anemia type: iron deficiency Iron deficiency anemia type: inadequate dietary iron intake Qualified Code(s): D50.8 - Other iron deficiency anemias Plan: Her CBC was normal on her labs done yesterday Continue Ferrous Sulfate 325 mg QD (5) Migraine: Code(s): G43.909 - Migraine, unspecified, not intractable, without status migrainosus Qualifiers: Migraine type: unspecified Status migrainosus presence: without status migrainosus Intractability: not intractable Qualified Code(s): G43.909 - Migraine, unspecified, not intractable, without status migrainosus Plan: Stable/controlled Continue Fioricet 50-325-40 mg 1 tablet 2 to 3 times a day as needed (6) Anxiety: Code(s): F41.9 - Anxiety disorder, unspecified Plan: States that her anxiety remains well-controlled lately and she does not need any Rx at this time States that working full-time and staying busy has help keep her occupied and have helped a lot (7) Bipolar disorder: Code(s): F31.9 - Bipolar disorder, unspecified Qualifiers: Active/Remission status: currently active Current bipolar episode type: mixed Current episode severity: unspecified Qualified Code(s): F31.60 - Bipolar disorder, current episode mixed, unspecified Plan: She has not been on any Rx for her bipolar disorder for a couple of years now and states that she is doing well so far without any Rx Working full-time has helped her a lot Follow up with psychiatry as scheduled Plan To return as scheduled next month for her annual physical examination Coding Level of Care Code Est Pt Level 3 (26193) Diagnoses Pure hypercholesterolemia E78.00 Viral gastroenteritis A08.4 Mild intermittent asthma without complication J45.20 Asthma severity: mild Asthma persistence: intermittent Asthma complication type: uncomplicated Iron deficiency anemia secondary to inadequate dietary iron intake D50.8 Anemia type: iron deficiency Iron deficiency anemia type: inadequate dietary iron intake Migraine without status migrainosus, not intractable, unspecified migraine type G43.909 Migraine type: unspecified Status migrainosus presence: without status migrainosus Intractability: not intractable Anxiety F41.9 Bipolar affective disorder, current episode mixed, current episode severity unspecified F31.60 Active/Remission status: currently active Current bipolar episode type: mixed Current episode severity: unspecified
== END 2024-06-07 16:21 | disposition home or self-care (01) ==
PROVIDERS: PCP Internal Medicine; Visit Provider Internal Medicine
DX: A08.4 Viral intestinal infection, unspecified (principal); E78.00 Pure hypercholesterolemia, unspecified; J45.20 Mild intermittent asthma, uncomplicated; D50.8 Other iron deficiency anemias; G43.909 Migraine, unspecified, not intractable, without status migrainosus; F41.9 Anxiety disorder, unspecified
CPT/HCPCS: 99213

== ENCOUNTER 2024-08-04 08:52 | Outpatient (AMB) | payer OTHER, SELFPAY ==
--- NOTE | 2024-08-04 08:53 | A.OFFVIS_ITS ---
Vital Signs 08/04/24 08:57 Height 5 ft 4 in Weight 145 lb 0.004 oz BMI 24.9 Intake Visit Reasons: cyst Intake Note: This patient presents for cyst. Pt c/o; reports pain. Manager Residential Required: No Accompanied by: Daughter Allergies No Known Allergies Allergy (Mild, Verified 08/04/24 08:58) NKA Medication List - Last Reconciled 08/04/24 by Niko Parr MD ferrous sulfate 325 mg PO DAILY 90 days ibuprofen 800 mg PO TID PRN 30 days meclizine 25 mg PO DAILY PRN Ventolin HFA 90 mcg/actuation (albuterol sulfate) 2 puffs inhalation Q6-8H PRN 90 days NS HPI HPI cyst: Details: She is here because of significant pain, and swelling on the area posterior to her anus. She has had this for about 3 days but this has been progressively getting worse. She says she has been miserable with the pain. She denies any drainage I had seen her earlier this year because of this perianal cyst on the same area. [facility] Medical History (Updated 08/04/24 @ 09:35 by Niko Parr MD) Perianal abscess Pure hypercholesterolemia Breast cancer screening by mammogram Impaired fasting glucose Numbness of right foot Headache Low back pain Neck pain Perianal cyst Impacted cerumen of both ears Skin mole Tenosynovitis of thumb Tenosynovitis of forearm Overweight (BMI 25.0-29.9) Medical marijuana use Bipolar disorder Anxiety Insomnia Migraine Asthma Surgical History Status post abdominal hysterectomy (~02/09/13) History of section (~07/2011) History of breast augmentation (~02/18/10) History of incision and drainage (~2008) Family History Father Unknown family medical history Mother Diabetes mellitus Hypertension Asthma Paternal Grandfather Alzheimer's dementia Social History Housing: Apartment Alcohol intake: never Patient Tobacco Use Status: Never used Tobacco e-Cigarette/Vaping Use: Never Used Second Hand Smoke Exposure: Yes Substance Use Type: Marijuana service: No Current occupational status: employed Cognitive needs: No Hearing needs: No Vision needs: Yes (needs to see eye doctor) Female Reproductive History Menstrual Age of Menarche: 14 Review of Systems Const Denies chills and Denies fever(s) Card Denies dyspnea Resp Denies cough and Denies dyspnea Reports no additional complaints Psych Reports anxiety Physical Exam Vital Signs: BMI result Body Mass Index 24.9 Const Other: Appears uncomfortable from pain General: no acute distress Resp Effort & Inspection: normal respiratory effort Cardio Rate: regular rate Back/Spine/Pelvis Other: On the posterior perianal area towards the coccyx is note of a fluctuant induration about 2 cm in diameter, with erythema consistent with an abscess Office Procedures I&D Drain Details: She was in prone position. The buttocks were retracted to expose the coccyx area. The area was prepped and draped. Lidocaine 1% was used for local anesthesia. I made an incision on the skin overlying the abscess with a blade 11. And this was carried down until the abscess cavity was entered. Large amounts of foul-smelling pus was drained. I probed the cavity with a Q-tip to make sure that there were no loculations. I then applied dressings. The procedure was completed. She tolerated procedure well. She was given wound care instructions. [id number] of Skin Abscess, complex All charges added?: Procedure code (CPT) selection complete Assessment & Plan Assessment & Plan (1) Perianal abscess: Code(s): K61.0 - Anal abscess Category: Medical Plan: I explained to her it would be best to proceed with I&D because of the abscess. I described the technique of the procedure as was the risks, benefits, and alternatives and she had given consent I&D was done large amounts of pus was drained. I instructed her on good wound care. She can take Tylenol and ibuprofen for pain. She felt much better after the I&D She was instructed to call me in the office if she has any concerns down the line. Coding Level of Care Code Est Pt Level 3 (38914) Diagnoses Perianal abscess K61.0 CPT Codes I&D Drain - Drain 2: 10572-Rlbvfalu of Skin Abscess, complex ([id number])
[2024-08-04 08:57] VITALS: BMI 24.9
== END 2024-08-04 09:33 | disposition home or self-care (01) ==
LOC: HO.HGS 08:52
PROVIDERS: PCP Internal Medicine; Visit Provider Surgery
DX: K61.0 Anal abscess (principal)
CPT/HCPCS: 46050; 99213

== ENCOUNTER → 2024-08-04 08:52 | Outpatient (BNVA) | payer OTHER, SELFPAY | PROVIDERS: PCP Internal Medicine; Visit Provider Surgery | DX: K61.0 Anal abscess (principal) | CPT/HCPCS: 46050; 99212 ==

== ENCOUNTER 2024-09-27 08:48 | Outpatient (AMB) | payer OTHER, SELFPAY ==
[2024-09-27 08:54] VITALS: BP 118/70; BMI 25.7
--- NOTE | 2024-09-27 08:54 | A.OFFVIS_ITS ---
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 Concerned about a vaginal odor and wants to get that checked out she did start being sexually active with somebody this year she is not super worried about infections but she is concerned. She declines blood tests for HIV etc. She has a history of a hysterectomy 2012 for a repeat with a placenta percreta detected antenatally for which she was transferred [facility] for her C- section ahead of time, before term. She does sometimes get hot flashes. She missed her mammogram this year she promises me she will schedule it she has a history of breast implants. She is worried about a bulge she feels mid abdomen on the left side and she has felt it 3 specific times when she was bending over pulling up her panty hose she does not feel it there now today and she could not recreate it. [facility] Medical History Perianal abscess Pure hypercholesterolemia Breast cancer screening by mammogram Impaired fasting glucose Numbness of right foot Headache Low back pain Neck pain Perianal cyst Impacted cerumen of both ears Skin mole Tenosynovitis of thumb Tenosynovitis of forearm Overweight (BMI 25.0-29.9) Medical marijuana use Bipolar disorder Anxiety Insomnia Migraine Asthma Surgical History Status post abdominal hysterectomy (~02/09/13) History of section (~07/2011) History of breast augmentation (~02/18/10) History of incision and drainage (~2008) Family History Father Unknown family medical history Mother Diabetes mellitus Hypertension Asthma Paternal Grandfather Alzheimer's dementia Social History Housing: Apartment Alcohol intake: never Patient Tobacco Use Status: Never used Tobacco e-Cigarette/Vaping Use: Never Used Second Hand Smoke Exposure: Yes Substance Use Type: Marijuana Patient : Yes service: No Current occupational status: employed Cognitive needs: No Hearing needs: No Vision needs: Yes (needs to see eye doctor) Female Reproductive History Menstrual Age of Menarche: 14 Duration of menses: <3 days control method: none Date of last pap smear: 09/30/23 (negative) Physical Exam Vital Signs: Last Vital Signs BP 118/70 09/27/24 08:54 BMI result Body Mass Index 25.7 Const General: healthy appearing, comfortable, no acute distress, well developed and alert Nutritional Appearance: average body habitus Orientation/consciousness: patient oriented x3 Limitations: no limitations HEENT Head: Yes normocephalic Neck Neck: Yes normal visual inspection Chest Other: Has breast implants Chest palpation & inspection: normal inspection of the chest Breast/axilla inspection: normal inspection of the breasts and normal inspection of the axillae Breast/axilla palpation: normal palpation of the breasts and normal palpation of the axillae Resp Effort & Inspection: normal respiratory effort GI Other: No abdominal bulge or anything suspicious for hernia. scar is low transverse. Inspection: Yes normal to inspection, No Abdominal wall edema and No distended Palpation (GI): Soft to palpation and nontender Other: External exam vagina is pink moist with scant white homogeneous discharge possibly consistent await testing results. Vaginal is well healed and not obvious no bulging of peritoneum appreciated (I had her do a Valsalva and bear down to assess her muscular integrity secondary to her concern history of percreta.) Extremely good tone with Kegel. External Female Exam: normal external appearance and normal appearance of the urethra Speculum Exam - Vagina: normal appearance of the vagina and normal vaginal discharge Speculum Exam - Cervix: normal appearance of the cervix Bimanual Exam- Adnexa, other: normal adnexae, no masses, normal and No adnexal tenderness Neuro General: patient oriented x3 Results Reviewed Results Reviewed: Name: Antionette Rinaldi Age/Sex: 48/F Attending: Miranda Donaldson CNM : 1975 Submitted by: Miranda Donaldson CNM Copies to: Perez Noriega MD MR #: [id number] Status: DEP REF Collected: 09/25/23 Location: [facility] Received: 09/30/23 Interpretation Satisfactory for evaluation. No endocervical cells seen. Coccobacilli consistent with shift in vaginal nona. Negative for intraepithelial lesion or malignancy. HPV mRNA E6/E7: NOT DETECTED This assay detects E6/E7 viral messenger RNA (mRNA) from 14 high-risk HPV types (16, 18, 31, 33, 35, 39, 45, 51, 52, 56, 58, 59, 66, 68) HPV testing performed by [facility], [place], [place]. See reference laboratory portion of the EMR for entire report. Clinical Information LMP: No menses Previous PAP test: 2011, WNL Material Received ThinPrep-Vaginal vu Copies To Perez Noriega MD [address] [id number] Miranda Donaldson CNM [address] [place] [id number] Electronically Signed By: ANDREW Hamilton (ASCP) 10/05/23 1107 The Pap Test is a screening procedure with the inherent possibility of both false negative and false positive results. Results should be interpreted in the context of historic and current clinical findings. Reliability of the Pap Test is enhanced by performing the test on a regular repetitive basis. Patient: Antionette Rinaldi Age/Sex: 48/F MR#: [id number] Page 1 of 1 Assessment & Plan Assessment & Plan (1) Status post abdominal hysterectomy: Onset Date: ~02/09/13 Comment: total abdominal hysterectomy, partial omentectomy due to placenta percreta from previous C-sections (Dr. De Amato) Code(s): Z90.710 - Acquired absence of both cervix and uterus Category: Surgical (2) Well woman exam with routine gynecological exam: Code(s): Z01.419 - Encounter for gynecological examination (general) (routine) without abnormal findings Category: Medical (3) Hx of abnormal cervical Pap smear: Comment: History of ASCUS 2003. Patient had total hysterectomy at 2012, overdue for Pap.; 09/25/2023 Pap is negative with negative HPV. Code(s): Z87.42 - Personal history of other diseases of the female genital tract Category: Medical (4) Breast cancer screening by mammogram: Comment: Overdue she will schedule it. Code(s): Z12.31 - Encounter for screening mammogram for malignant neoplasm of breast Category: Medical Plan -----Discussed in this visit the following: healthy balanced diet, regular and consistent exercise, getting recommended health screens, doing the best she can for her particular health concerns, kegel exercises, pap smear screening and followup recommendations, mammography screening and SBE, normal changes in cycles in her life stage--- . I urged her to go ahead and schedule her mammogram now and not wait any longer . We will await testing to see if there is to treat. I recommend she keep an eye on her concern for bulging of her abdominal wall and review her symptoms with her primary care provider and discuss whether not surgical referral was in order I do not appreciate suspicious for hernia on exam today and would patient the circumstances that made her feel bulge previously. Offered blood testing for STIs she declines. She tells me she going to be working on trying to eat better to lower her cholesterol. She thinks her last abnormal Pap smear was about 18 years ago and they were all normal since, including last use negative vaginal wall/Cuff Pap. Coding Level of Care Code Est Pt Prev Care 40-64y(02470) Diagnoses Status post abdominal hysterectomy Z90.710 Well woman exam with routine gynecological exam Z01.419 Hx of abnormal cervical Pap smear Z87.42 Breast cancer screening by mammogram Z12.31
== END 2024-09-27 09:39 | disposition home or self-care (01) ==
LOC: HO.HWSM 08:48
PROVIDERS: PCP Internal Medicine; Visit Provider Advanced Practice Midwife
DX: Z01.419 Encounter for gynecological examination (general) (routine) without abnormal findings (principal); Z87.42 Personal history of other diseases of the female genital tract
CPT/HCPCS: 99396; 99459

== ENCOUNTER 2024-09-27 08:48 | Outpatient (REF) | payer OTHER, SELFPAY ==
[2024-09-27 15:30] LABS: Bacterial Vaginosis PCR POSITIVE (Negative); Candida Group PCR NOT DETECTED (Not Detect); Candida glab krusei PCR NOT DETECTED (Not Detect); Trichomonas vaginalis PCR NOT DETECTED (Not Detect)
[2024-09-27 16:03] LABS: CT PCR NOT DETECTED (Not Detect.); NG PCR NOT DETECTED (Not Detect.)
== END 2024-09-27 08:49 | disposition home or self-care (01) ==
LOC: HO.LAB 08:48
PROVIDERS: PCP Internal Medicine; Visit Provider Advanced Practice Midwife
DX: N89.8 Other specified noninflammatory disorders of vagina (principal); Z20.2 Contact with and (suspected) exposure to infections with a predominantly sexual mode of transmission; Z01.419 Encounter for gynecological examination (general) (routine) without abnormal findings; Z90.710 Acquired absence of both cervix and uterus; Z87.42 Personal history of other diseases of the female genital tract; Z12.31 Encounter for screening mammogram for malignant neoplasm of breast
CPT/HCPCS: 0352U; 87491; 87591; 99396; 99459

== ENCOUNTER 2024-10-18 12:59 | Outpatient (REF) | payer OTHER, SELFPAY ==
[2024-10-18 14:23] LABS: Appearance Urine Cloudy; Color Urine Yellow; Glucose Urine UA Negative (Negative); Leukocyte Esterase Urine Large (3+) (Negative); Nitrite Urine Negative (Negative); PH 5.5 (5.0-9.0); Specific Gravity - Urine 1.015 (1.005-1.025); UMIC TRIGGER UACC YES; Urine Blood Negative (Negative); Urine Ketones Negative (Negative); Urine Protein Negative (Neg-Trace)
[2024-10-18 15:18] LABS: Bacterial Vaginosis PCR NEGATIVE (Negative); Candida Group PCR DETECTED (Not Detect); Candida glab krusei PCR DETECTED (Not Detect); Trichomonas vaginalis PCR NOT DETECTED (Not Detect)
[2024-10-18 17:14] LABS: Bacteria Urine 1+ (None Seen); Hyaline Casts Urine 0-2 /LPF (0-2); RBC Urine 0-2 /HPF (0-2); UACC Culture Trigger YES
== END 2024-10-18 13:00 | disposition home or self-care (01) ==
LOC: HO.LNP 12:59
PROVIDERS: PCP Internal Medicine
DX: N76.0 Acute vaginitis (principal); B96.89 Other specified bacterial agents as the cause of diseases classified elsewhere; B37.49 Other urogenital candidiasis
CPT/HCPCS: 81001; 81003; 81515; 87086; 87088; 87186; 96127; 99212

== ENCOUNTER 2024-10-18 12:59 | Outpatient (AMB) | payer OTHER, SELFPAY ==
--- NOTE | 2024-10-18 13:02 | MHC.PC.OV ---
Vital Signs 10/18/24 13:03 Height 5 ft 4 in Weight 155 lb 4 oz BMI 26.6 BP 110/70 Blood Pressure Location Lt brachial Position Sitting Pulse 97 Pulse Source Pulse Oximeter Temp 96.9 F Temp Source Temporal Artery Scan Pulse Oximetry (%) 97 Oxygen Delivery Method Room Air Intake Visit Reasons: Possible UTI Emergency Spill Response Technician Required: No Accompanied by: Self / Same As Patient Allergies No Known Allergies Allergy (Mild, Verified 10/18/24 21:21) NKA Medication List - Last Reconciled 10/18/24 by RUTH Stone fluconazole 150 mg PO Q3D 2 days Ventolin HFA 90 mcg/actuation (albuterol sulfate) 2 puffs inhalation Q6-8H PRN 90 days NS Tobacco use date assessed: 10/18/24 Dental Screening Dental Screen Date: 10/18/24 Did you have a dental visit in the last 12 months?: No Did you have a dental problem in the last 6 months where you did not have access to dental care?: No Was dental information given to patient?: No HPI Possible UTI HPI Details The patient is a 49 y/o female with significant past s/p abdominal hysterectomy, anemia, asthma, migraine, insomnia, and bipolar She is a patient of of Dr. Noriega, was last seen 06/07/2024 Patient reports that she saw her OBGYN a week ago who put her on medication for BV Reported that she completed the medication but now she is having dyspareunia, dysuria, urinary frequency, whitish discharge, vaginal itch and a fish-like odor. reports that she is concern because she had sex and she is worried that she caught something clean catch urine done in office and along with vaginal swab and sent to the lab. The patient was ordered gonorrhea/chlamydia testing as well. The patient was ordered metronidazole and fluconazole vaginal swab resulted showed +letty-metronidazole was canceled. The was called and told to take the fluconazole and she was encouraged to complete the STD testing. [facility] Medical History Perianal abscess Pure hypercholesterolemia Breast cancer screening by mammogram Impaired fasting glucose Numbness of right foot Headache Low back pain Neck pain Perianal cyst Impacted cerumen of both ears Skin mole Tenosynovitis of thumb Tenosynovitis of forearm Overweight (BMI 25.0-29.9) Medical marijuana use Bipolar disorder Anxiety Insomnia Migraine Asthma Surgical History Status post abdominal hysterectomy (~02/09/13) History of section (~07/2011) History of breast augmentation (~02/18/10) History of incision and drainage (~2008) Family History Father Unknown family medical history Mother Diabetes mellitus Hypertension Asthma Paternal Grandfather Alzheimer's dementia Social History Housing: Apartment Alcohol intake: never Patient Tobacco Use Status: Never used Tobacco e-Cigarette/Vaping Use: Never Used Second Hand Smoke Exposure: Yes Substance Use Type: Marijuana service: No Current occupational status: employed Cognitive needs: No Hearing needs: No Vision needs: Yes (needs to see eye doctor) Female Reproductive History Menstrual Age of Menarche: 14 Questionnaire PHQ-9 Over the last 2 weeks, how often have you been bothered by any of the following problems? 1. Little interest or pleasure in doing things: not at all 2. Feeling down, depressed, or hopeless: not at all 3. Trouble falling or staying asleep, or sleeping too much: not at all 4. Feeling tired or having little energy: not at all 5. Poor appetite or overeating: not at all 6. Feeling bad about yourself - or that you are a failure or have let yourself or your family down: not at all 7. Trouble concentrating on things, such as reading the newspaper or watching television: not at all 8. Moving or speaking so slowly that other people could have noticed. Or the opposite - being so fidgety or restless that you have been moving around a lot more than usual: not at all 9. Thoughts that you would be better off or of hurting yourself in some way: not at all Total score: 0 Depression Screening Interpretation: Negative Depression Screening Done: Yes 16872 - PHQ-9 Billing: Yes Source: Developed by Drs. Solomon Duval, Alexa Degroot, José Miguel Lundberg and colleagues, with an educational zulema from [employer]. Thrive Questionnaire Date Thrive assessed: 10/18/24 I am a: Patient What is your living situation today?: I have a steady place to live Within the past 12 months, did the food you bought not last and you didn't have the money to get more?: Never true Within the past 12 months, did you worry whether your food would run out before you got money to buy more?: Never true Do you have trouble paying for medicines?: No Do you have trouble getting transportation to medical appointments?: No Do you have trouble paying your heating and electricity bill?: No Do you have trouble taking care of your child, family member or friend?: No Do you have trouble with day-to-day activities such as bathing, preparing meals, shopping, managing finances, etc.?: No Are you currently unemployed and looking for a job?: No Are you interested in more education?: No Please select the resources that you would like help with: None Currently or been in a relationship where the following occur: No concerns reported THRIVE Score: 0 AUDIT C Alcohol Use Questionnaire (AUDIT-C) 1. How often do you have a drink containing alcohol?: Never 3. How often do you have six or more drinks on one occasion?: Never Total Score: 0 Score Reviewed/Action Taken: Yes MALINA-7 AMB Questionnaire MALINA-7 Date MALINA - 7 assessed: 10/18/24 Feeling nervous, anxious, or on edge: 0 = Not at all Not being able to stop or control worryin = Not at all Worrying too much about different things: 0 = Not at all Trouble relaxin = Not at all Being so restless that it is hard to sit still: 0 = Not at all Becoming easily annoyed or irritable: 0 = Not at all Feeling afraid as if something awful might happen: 0 = Not at all Total MALINA-7 score (0-4 normal; 5-9 mild; 10-14 moderate; 15-21 severe): 0 Source: Developed by Drs. Solomon Duval, Alexa Degroot, José Miguel Lundberg and colleagues, with an educational zulema from [employer]. MALINA-7 Assessment Billing MALINA-7 Assessment Tool: MALINA-7 Assessment 15589 Review of Systems Const Details: Denies chills, Denies fatigue, Denies fever(s), Denies headache(s) and Denies weakness HEENT Denies change in vision, Denies dizziness, Denies headache(s), Denies hearing loss, Denies nasal congestion, Denies sinus pain, Denies sinus pressure and Denies sore throat Card Denies chest pain, Denies lightheadedness, Denies dyspnea and Denies other (palpitations) Resp Denies cough, Denies dyspnea and Denies wheezing GI Denies abdominal pain, Denies melena, Denies hematochezia, Denies change in bowel habits, Denies dyspepsia and Denies nausea Denies hematuria and + dysuria, +vaginal discharge, +urinary frequency, +vaginal itching, +fishy fowl smelling odor Musc Denies abnormal gait, Denies myalgias, Denies arthralgias, Denies numbness and Denies tingling Skin/Breast Denies rash, Denies unusual bruising and Denies wounds Physical exam (Primary Care) Vital Signs: Last Vital Signs Temp 96.9 F 10/18/24 13:03 Pulse 97 10/18/24 13:03 BP 110/70 10/18/24 13:03 Pulse Ox 97 10/18/24 13:03 Oxygen Delivery Method Room Air 10/18/24 13:03 BMI result Body Mass Index 26.6 Tobacco/Smoking Status: Tobacco use Status Tobacco use date assessed 10/18/24 10/18/24 13:06 Patient Tobacco Use Status Never used Tobacco 10/18/24 13:06 e-Cigarette/Vaping Use Never Used 10/18/24 13:06 PHQ-9: PHQ-9 Score PHQ-9: Total score 0 10/18/24 21:22 Depression Screening Interpretation: Negative Thrive Assessment: Date of Thrive Assessment Date Thrive assessed 10/18/24 10/18/24 13:06 Currently or been in a relationship where the following occur: No concerns reported Const Other: General: no acute distress, well developed, alert and awake Nutritional Appearance: well nourished Orientation/consciousness: patient oriented x3 HENMT Head: Yes normocephalic and Yes atraumatic Eyes Pupils: Equal, round and reactive pupils present and Pupil accommodation reflex normal Neck Neck: Yes normal visual inspection, Yes no lymphadenopathy and Yes trachea midline Thyroid: Thyroid normal Carotids: no bruits Lymphatic: no lymphadenopathy noted Chest Chest palpation & inspection: normal inspection of the chest Resp Effort & Inspection: normal respiratory effort Auscultation: clear to auscultation bilaterally Cardio Rate: regular rate Rhythm: regular rhythm Heart sounds: S1 normal heart sound present, S2 normal heart sound present, no gallops, no murmurs and no rubs Bruits: no abdominal aortic bruits and no carotid bruits GI Palpation (GI): No Abdominal aortic bruit present, Soft to palpation, +suprapubic tenderness, No hepatosplenomegaly present and No Rebound tenderness present Auscultation: normal bowel sounds General: Yes no CVA tenderness Back/Spine/Pelvis Back: no CVA tenderness Skin General: warm and dry. Normal skin color. Normal skin turgor Lesions: no lesions Results AMB Urinalysis, Automated UA Leukoctes 2 Luis Eduardo/uL Last Edit by Koki Kim [facility] on 10/18/24 13:26 UA Nitrite Negative Last Edit by Srinivasanovant healthtalita Kim [facility] on 10/18/24 13:26 UA Urobilinogen 0 mg/dL Last Edit by Koki Kim [facility] on 10/18/24 13:26 UA Protein 0 mg/dL Last Edit by Koki Kim [facility] on 10/18/24 13:26 UA pH 6.0 Last Edit by Koki Kim [facility] on 10/18/24 13:26 UA Blood 0 Lonnie/uL Last Edit by Koki Kim [facility] on 10/18/24 13:26 UA Specific [place] 1.025 Last Edit by Koki Kim [facility] on 10/18/24 13:26 UA Ketone Negative Last Edit by Koki Kim [facility] on 10/18/24 13:26 UA Bilirubin 0 mg/dL Last Edit by Koki Kim [facility] on 10/18/24 13:26 UA Glucose 0 mg/dL Last Edit by Koki Kim [facility] on 10/18/24 13:26 Results Reviewed Results Reviewed: Laboratory Last Values Urine pH (Auto) 6.0 10/18/24 13:25 Specific [place] (Auto) 1.025 10/18/24 13:25 Urine Protein (Auto) 0 mg/dL 10/18/24 13:25 Glucose (UA)(Auto) 0 mg/dL 10/18/24 13:25 Urine Ketones (Auto) Negative 10/18/24 13:25 Urine Blood (Auto) 0 Lonnie/uL 10/18/24 13:25 Urine Nitrite (Auto) Negative 10/18/24 13:25 Urine Bilirubin (Auto) 0 mg/dL 10/18/24 13:25 Urine Urobilinogen (Auto) 0 mg/dL 10/18/24 13:25 Leukocyte Esterase (Auto) 2 Luis Eduardo/uL 10/18/24 13:25 Coding Level of Care Code Est Pt Level 3 (06369) Diagnoses Discharge from the vagina N89.8 Dysuria R30.0 Bacterial vaginal infection N76.0; B96.89 Candidiasis of genitalia B37.49 Urinary frequency R35.0 Additional Codes MALINA-7 Assessment Billing - MALINA-7 Assessment Tool: MALINA-7 Assessment 42455 ([id number]) PHQ-9 - 43837 - PHQ-9 Billing: Yes ([id number]) Time Spent (min) 25 Assessment & Plan Assessment & Plan (1) Discharge from the vagina: Code(s): N89.8 - Other specified noninflammatory disorders of vagina Category: Medical Plan: reports whitish vaginal discharge suspected yeast infection vaginal swab completed: + for letty Take fluconazole 150mg once, then repeat in 3 days =2 tabs (2) Dysuria: Code(s): R30.0 - Dysuria Category: Medical Plan: urinalysis: showed 3+ bacteria, clean catch STD test ordered, willl advise when resulted (3) Bacterial vaginal infection: Code(s): N76.0 - Acute vaginitis; B96.89 - Other specified bacterial agents as the cause of diseases classified elsewhere Category: Medical Plan: Metronidazole ordered due to the complaint of fishy like odor ---negative BV result on vaginal swab, so the medication was discontinued and the patient was updated (4) Candidiasis of genitalia: Code(s): B37.49 - Other urogenital candidiasis Category: Medical Plan: Take fluconazole as prescribed (5) Urinary frequency: Code(s): R35.0 - Frequency of micturition Category: Medical Plan: encouraged to complete STD test, will advised upon resulted Plan Follow up as scheduled with PCP in November 2024 Orders: Orders AMB Urinalysis Automated 10/18/24 Z13.9 - Encounter for screening, unspecified Bacterial Vaginosis Panel 10/18/24 B37.49 - Other urogenital candidiasis, B96.89 - Other specified bacterial agents as the cause of diseases classified elsewhere, N76.0 - Acute vaginitis UA CC w/rflx Micro + Cult 10/18/24 R30.0 - Dysuria CT NG by PCR 10/18/24 N89.8 - Other specified noninflammatory disorders of vagina, R30.0 - Dysuria Medications: New fluconazole 150 mg PO Q3D 2 days 2 tabs 0RF Discontinued metronidazole Take with food, Avoid alcohol and vinegar products Discontinued Reason: Patient Completed Course 500 mg PO BID 7 days 14 tabs 0RF
[2024-10-18 13:03] VITALS: BP 110/70; PULSE 97; TEMP 36.1; O2SAT 97; BMI 26.6
--- OUTSIDE RECORDS SUMMARY | 2024-10-18 14:39 | XMS_ITS | Clinical Summary ---
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 Name Role Phone Unavailable Primary Care Provider Unavailabl e Social History Tobacco Use Types Packs/Day Years Used Date Smoking Tobacco: Never Assessed Sex and Gender Information Value Date Recorded Sex Assigned at Not on file Gender Identity Not on file Sexual Orientation Not on file Plan of Treatment Health Maintenance Due Date Last Done Comments Breast Cancer Screening 1975 DTaP,Tdap,and Td Vaccines (1 - Tdap) 1996 Hepatitis B Vaccines (1 of 3 - 19+ 3-dose series) 1996 Cervical Cancer Screening: P ap Smear 1998 Colorectal Cancer Screening: Colonoscopy 08/26/2022 Depression Screening 08/26/2022 HIV Screening 08/26/2022 Hepatitis C Screening 08/26/2022 Social Influencers of Health Screening 08/26/2022 COVID-19 Vaccine (2023-2 5 season) 2024 Influenza Vaccine (#1) 2024 HIB Vaccines Aged Out No longer eligi ble based on patient's age to complete this topic HPV Vaccines Aged Out No longer eligi ble based on patient's age to complete this topic Hepatitis A Vaccines Aged Out No long er eligible based on patient's age to complete this topic IPV Vaccines Aged Out No longer eligi ble based on patient's age to complete this topic MMR Vaccines Aged Out No longer eligi ble based on patient's age to complete this topic Meningococcal ACWY Vaccine Aged Out N o longer eligible based on patient's age to complete this topic Pneumococcal Vaccine: Pediat rics (0 to 5 Years) and At-Risk Patients (6 to 64 Years) Aged Out No longer eligible b ased on patient's age to complete this topic RSV Immunization Patients Un rayna 20 months Aged Out No longer eligible b ased on patient's age to complete this topic Varicella Vaccines Aged Out No longer eligible based on patient's age to complete this topic
== END 2024-10-18 15:42 | disposition home or self-care (01) ==
PROVIDERS: PCP Internal Medicine
DX: Z13.9 Encounter for screening, unspecified (principal)

== ENCOUNTER 2024-12-23 14:29 | Outpatient (AMB) | payer OTHER, SELFPAY ==
--- NOTE | 2024-12-23 14:33 | A.OFFPC_ITS ---
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 Required: No Accompanied by: Self / Same As Patient Allergies No Known Allergies Allergy (Mild, Verified 12/23/24 14:51) NKA Medication List - Last Reconciled 12/23/24 by Perez Noriega MD Ventolin HFA 90 mcg/actuation (albuterol sulfate) 2 puffs inhalation Q6-8H PRN 90 days NS Tobacco use date assessed: 12/23/24 Dental Screening Dental Screen Date: 12/23/24 Did you have a dental visit in the last 12 months?: Yes Did you have a dental problem in the last 6 months where you did not have access to dental care?: No Was dental information given to patient?: Patient has dentist HPI 3M FOLLOW -UP HPI Details Patient comes in today for her follow up visit States that she quit smoking marijuana completely a couple of months ago and reports that she feels much more alert and less tired that she was in the past Adds that she recently noticed a recurrent lump and pressure over her left lower abdominal area for the past 3 months and states that her symptoms seem to occur or are triggered when she bends over to pull up her stockings or pantyhose when she is getting dressed States that she does not feel any pain although she would sometimes feel like there is a popping sensation over the left lower abdominal area when the lump occurs States that she had a hysterectomy done about 11 years ago and is wondering if she is starting to get hernia She denies any nausea or vomiting and no change in bowel habits noted She denies any headaches or dizziness Denies any chest pains, no increased shortness of breath States that she is still having trouble sleeping at night and has tried taking some OTC Melatonin recently but does not feel that they are helping States that she is thinking about trying some Tylenol PM and is wondering if they are okay to take with melatonin She also needs her Ventolin inhaler Rx refilled PFSH Medical History Perianal abscess Pure hypercholesterolemia Breast cancer screening by mammogram Impaired fasting glucose Numbness of right foot Headache Low back pain Neck pain Perianal cyst Impacted cerumen of both ears Skin mole Tenosynovitis of thumb Tenosynovitis of forearm Overweight (BMI 25.0-29.9) Medical marijuana use Bipolar disorder Anxiety Insomnia Migraine Asthma Surgical History Status post abdominal hysterectomy (~02/09/13) History of section (~07/2011) History of breast augmentation (~02/18/10) History of incision and drainage (~2008) Family History Father Unknown family medical history Mother Diabetes mellitus Hypertension Asthma Paternal Grandfather Alzheimer's dementia Social History Housing: Apartment Alcohol intake: never Patient Tobacco Use Status: Never used Tobacco e-Cigarette/Vaping Use: Never Used Second Hand Smoke Exposure: Yes Substance Use Type: Marijuana service: No Current occupational status: employed Current occupation: [employer] Cognitive needs: No Hearing needs: No Vision needs: Yes Female Reproductive History Menstrual Age of Menarche: 14 Questionnaire PHQ-9 Over the last 2 weeks, how often have you been bothered by any of the following problems? 1. Little interest or pleasure in doing things: not at all 2. Feeling down, depressed, or hopeless: several days 3. Trouble falling or staying asleep, or sleeping too much: nearly every day 4. Feeling tired or having little energy: not at all 5. Poor appetite or overeating: nearly every day 6. Feeling bad about yourself - or that you are a failure or have let yourself or your family down: not at all 7. Trouble concentrating on things, such as reading the newspaper or watching television: several days 8. Moving or speaking so slowly that other people could have noticed. Or the opposite - being so fidgety or restless that you have been moving around a lot more than usual: nearly every day 9. Thoughts that you would be better off or of hurting yourself in some way: not at all Total score: 11 Depression Screening Interpretation: Positive Depression Screening Follow-up: Existing condition and Community Mental Health Worker F/U Depression Screening Done: Yes 30344 - PHQ-9 Billing: Yes Source: Developed by Drs. Solomon Duval, Alexa Degroot, José Miguel Lundberg and colleagues, with an educational zulema from [employer]. Thrive Questionnaire Date Thrive assessed: 12/23/24 I am a: Patient What is your living situation today?: I have a steady place to live Within the past 12 months, did the food you bought not last and you didn't have the money to get more?: Never true Within the past 12 months, did you worry whether your food would run out before you got money to buy more?: Never true Do you have trouble paying for medicines?: No Do you have trouble getting transportation to medical appointments?: No Do you have trouble paying your heating and electricity bill?: No Do you have trouble taking care of your child, family member or friend?: No Do you have trouble with day-to-day activities such as bathing, preparing meals, shopping, managing finances, etc.?: No Are you currently unemployed and looking for a job?: No Are you interested in more education?: No Please select the resources that you would like help with: None Currently or been in a relationship where the following occur: No concerns reported THRIVE Score: 0 AUDIT C Alcohol Use Questionnaire (AUDIT-C) 1. How often do you have a drink containing alcohol?: Monthly or less 2. How many drinks containing alcohol do you have on a typical day when you are drinking?: 1 or 2 3. How often do you have six or more drinks on one occasion?: Never Total Score: 1 Score Reviewed/Action Taken: Yes MALINA-7 AMB Questionnaire MALINA-7 Date MALINA - 7 assessed: 12/23/24 Feeling nervous, anxious, or on edge: 1 = Several days Not being able to stop or control worryin = Nearly every day Worrying too much about different things: 3 = Nearly every day Trouble relaxin = Nearly every day Being so restless that it is hard to sit still: 3 = Nearly every day Becoming easily annoyed or irritable: 3 = Nearly every day Feeling afraid as if something awful might happen: 3 = Nearly every day Total MALINA-7 score (0-4 normal; 5-9 mild; 10-14 moderate; 15-21 severe): 19 Source: Developed by Drs. Solomon Duval, Alexa Degroot, José Mgiuel Lundberg and colleagues, with an educational zulema from [employer]. MALINA-7 Assessment Billing MALINA-7 Assessment Tool: MALINA-7 Assessment 30625 Review of Systems Const Denies chills, Reports difficulty sleeping, Denies fatigue, Denies fever(s) and Denies headache(s) ENT Denies dysphagia, Denies dizziness, Denies otalgia, Denies headache(s), Denies neck pain, Denies odynophagia and Denies sore throat Card Denies chest pain, Denies palpitations and Denies dyspnea Resp Denies chest congestion, Denies cough and Denies dyspnea GI Details: (+) recurrent 'lump' and pressure-like sensation over the left lower abdominal area Denies abdominal pain, Denies constipation, Denies dysphagia, Denies heartburn, Denies diarrhea, Denies nausea, Denies odynophagia and Denies vomiting Denies difficulty voiding, Denies nocturia, Reports hot flashes (occasionally) and Denies dysuria Musc Denies back pain and Denies neck pain Skin/Breast Denies rash Neuro Denies dizziness and Denies headache(s) Psych Reports anxiety Endo Denies fatigue and Denies palpitations Physical exam (Primary Care) Vital Signs: Last Vital Signs Temp 97.8 F 12/23/24 14:34 Pulse 74 12/23/24 14:34 BP 108/70 12/23/24 14:34 Pulse Ox 97 12/23/24 14:34 Oxygen Delivery Method Room Air 12/23/24 14:34 BMI result Body Mass Index 27.2 Tobacco/Smoking Status: Tobacco use Status Tobacco use date assessed 12/23/24 12/23/24 14:36 Patient Tobacco Use Status Never used Tobacco 12/23/24 14:47 e-Cigarette/Vaping Use Never Used 12/23/24 14:47 PHQ-9: PHQ-9 Score PHQ-9: Total score 11 12/23/24 14:53 Depression Screening Interpretation: Positive Depression Screening Follow-up: Existing condition and Community Mental Health Worker F/U Thrive Assessment: Date of Thrive Assessment Date Thrive assessed 12/23/24 12/23/24 14:36 Currently or been in a relationship where the following occur: No concerns reported Const General: no acute distress and alert HENMT Ears: TM's normal bilaterally and EAC's normal Throat: Yes posterior oropharynx normal and Yes tonsils normal (no TP congestion) Neck Neck: Yes supple and No lymphadenopathy Thyroid: Thyroid normal Resp Auscultation: clear to auscultation bilaterally, no rales and no wheezes Cardio Rate: regular rate Rhythm: regular rhythm Heart sounds: no murmurs GI Palpation (GI): Soft to palpation, nontender, no guarding and no masses (no masses palpable on exam) Auscultation: normal bowel sounds General: Yes no CVA tenderness Back/Spine/Pelvis Back: no CVA tenderness Thoracic/Lumbar Spine: No lumbar spinal tenderness Skin Rashes: no rashes Extrem General: Yes no clubbing, cyanosis or edema Coding Level of Care Code Est Pt Level 4 (46603) Diagnoses Left lower quadrant abdominal mass R19.04 Pure hypercholesterolemia E78.00 Mild intermittent asthma without complication J45.20 Asthma severity: mild Asthma persistence: intermittent Asthma complication type: uncomplicated Iron deficiency anemia secondary to inadequate dietary iron intake D50.8 Anemia type: iron deficiency Iron deficiency anemia type: inadequate dietary iron intake Migraine without status migrainosus, not intractable, unspecified migraine type G43.909 Migraine type: unspecified Status migrainosus presence: without status migrainosus Intractability: not intractable Psychophysiological insomnia F51.04 Insomnia type: psychophysiologic Anxiety F41.9 Bipolar affective disorder, current episode mixed, current episode severity unspecified F31.60 Active/Remission status: currently active Current bipolar episode type: mixed Current episode severity: unspecified Overweight (BMI 25.0-29.9) E66.3 Additional Codes MALINA-7 Assessment Billing - MALINA-7 Assessment Tool: MALINA-7 Assessment 04239 ([id number]) PHQ-9 - 19117 - PHQ-9 Billing: Yes ([id number]) Assessment & Plan Assessment & Plan (1) Left lower quadrant abdominal mass: Code(s): R19.04 - Left lower quadrant abdominal swelling, mass and lump Category: Medical Plan: Have advised patient that there does not appear to be any mass palpable on exam at this time As she has been concerned about the possibility of a hernia, will send her for a pelvic US for further evaluation (2) Pure hypercholesterolemia: Code(s): E78.00 - Pure hypercholesterolemia, unspecified Category: Medical Plan: Reinforced low-cholesterol diet Will recheck her labs and fasting lipids in 6 months for follow-up (3) Asthma: Code(s): J45.909 - Unspecified asthma, uncomplicated Category: Medical Qualifiers: Asthma severity: mild Asthma persistence: intermittent Asthma complication type: uncomplicated Qualified Code(s): J45.20 - Mild intermittent asthma, uncomplicated Plan: Controlled Continue Ventolin HFA 1 to 2 inhalations Q 6 hours PRN - Rx refilled (4) Anemia: Code(s): D64.9 - Anemia, unspecified Category: Medical Qualifiers: Anemia type: iron deficiency Iron deficiency anemia type: inadequate dietary iron intake Qualified Code(s): D50.8 - Other iron deficiency anemias Plan: Her CBC was normal on her labs done a few months ago Continue Ferrous Sulfate 325 mg QD We will continue to monitor her CBC regularly (5) Migraine: Code(s): G43.909 - Migraine, unspecified, not intractable, without status migrainosus Category: Medical Qualifiers: Migraine type: unspecified Status migrainosus presence: without status migrainosus Intractability: not intractable Qualified Code(s): G43.909 - Migraine, unspecified, not intractable, without status migrainosus Plan: Stable/controlled Continue Fioricet 50-325-40 mg 1 tablet 2 to 3 times a day as needed (6) Insomnia: Code(s): G47.00 - Insomnia, unspecified Category: Medical Qualifiers: Insomnia type: psychophysiologic Qualified Code(s): F51.04 - Psychophysiologic insomnia Plan: Sleep hygiene reinforced She is currently taking OTC Melatonin but did not find it too helpful States that she is looking to try some OTC Tylenol PM and is wondering if this is okay to take with her Gummies - she is advised to go ahead and try some Tylenol PM to help with her sleep (7) Anxiety: Code(s): F41.9 - Anxiety disorder, unspecified Category: Medical Plan: Patient states that her anxiety remains well-controlled lately and she does not need any Rx at this time States that working full-time and staying busy has help keep her occupied and have helped a lot (8) Bipolar disorder: Code(s): F31.9 - Bipolar disorder, unspecified Category: Medical Qualifiers: Active/Remission status: currently active Current bipolar episode type: mixed Current episode severity: unspecified Qualified Code(s): F31.60 - Bipolar disorder, current episode mixed, unspecified Plan: Patient has not been on any Rx for her bipolar disorder for at least 2 to 3 years now and states that she is doing well so far without any Rx States that working full-time has helped her a lot Follow up with psychiatry as scheduled (9) Overweight (BMI 25.0-29.9): Code(s): E66.3 - Overweight Category: Medical Plan: Reinforced diet/exercise as tolerated/lose weight Plan To return in 6 months for his next annual physical examination Orders: Orders Complete Blood Count Auto Diff 6 Months D64.9 - Anemia, unspecified UA CC w/rflx Micro + Cult 6 Months R30.0 - Dysuria US pelvic complete 12/23/ R19.04 - Left lower quadrant abdominal swelling, mass and lump Comprehensive [place]. Panel Fast 6 Months E78.00 - Pure hypercholesterolemia, unspecified Lipid Panel 6 Months E78.00 - Pure hypercholesterolemia, unspecified TSH reflex Free T4 6 Months E78.00 - Pure hypercholesterolemia, unspecified Vitamin D 25-OH Total 6 Months E55.9 - Vitamin D deficiency, unspecified Medications: Refilled Ventolin HFA 90 mcg/actuation (albuterol sulfate) 2 puffs inhalation Q6-8H PRN 3 inhalers 3RF shortness of breath or wheezing 90 days NS
[2024-12-23 14:34] VITALS: BP 108/70; PULSE 74; TEMP 36.6; O2SAT 97; BMI 27.2
== END 2024-12-23 15:01 | disposition home or self-care (01) ==
LOC: HO.HMCH 14:30
PROVIDERS: PCP Internal Medicine; Visit Provider Internal Medicine
DX: R19.04 Left lower quadrant abdominal swelling, mass and lump (principal); E78.00 Pure hypercholesterolemia, unspecified; J45.20 Mild intermittent asthma, uncomplicated; F31.60 Bipolar disorder, current episode mixed, unspecified; D50.8 Other iron deficiency anemias; G43.909 Migraine, unspecified, not intractable, without status migrainosus; F51.04 Psychophysiologic insomnia; F41.9 Anxiety disorder, unspecified; E66.3 Overweight

== ENCOUNTER → 2024-12-23 14:29 | Outpatient (BNVA) | payer OTHER, SELFPAY | PROVIDERS: PCP Internal Medicine; Visit Provider Internal Medicine | DX: R19.04 Left lower quadrant abdominal swelling, mass and lump (principal); E78.00 Pure hypercholesterolemia, unspecified; J45.20 Mild intermittent asthma, uncomplicated; D50.8 Other iron deficiency anemias; G43.909 Migraine, unspecified, not intractable, without status migrainosus; F51.04 Psychophysiologic insomnia; F41.9 Anxiety disorder, unspecified; F31.60 Bipolar disorder, current episode mixed, unspecified; E66.3 Overweight; Z68.27 Body mass index [BMI] 27.0-27.9, adult; Z71.3 Dietary counseling and surveillance | CPT/HCPCS: 96127; 99212 ==

== ENCOUNTER 2025-01-12 07:52 | Emergency (ER) | payer OTHER, SELFPAY ==
[2025-01-12 08:02] VITALS: BP 114/69; PULSE 73; RESP 16; TEMP 36.2; O2SAT 100; BMI 24.6
--- OUTSIDE RECORDS SUMMARY | 2025-01-12 08:24 | XMS_ITS | Encounter Summary ---
Author Organization [facility] Address [address] [place] [address] [address] [place] [address] Care Team Providers Care Burglar Alarm Installer Name Role Phone Unavailable Primary Care Provider Unavailabl e Encounter Details Date Type Department Care Team (Late st Contact Info) Description 03/23/[address] [facility] [address] [place] [address] Basil Barnard, DMD [address] [place] [address] Social History Tobacco Use Types Packs/Day Years Used Date Smoking Tobacco: Never Smokeless Tobacco: Never Alcohol Use Standard Drinks/Week Comments Never 0 (1 standard drink = 0.6 oz pur e alcohol) Comments Unknown Sex and Gender Information Value Date Recorded Sex Assigned at Female 07/28/2022 10:15 AM EDT Legal Sex Female 10:15 AM EDT Gender Identity Female 07/28/2022 10:15 AM EDT Sexual Orientation Straight 07/28/2022 10 :15 AM EDT COVID-19 Exposure Response Date Recorded In the last 10 days, have yo u been in contact with someone who was confirmed or suspected to have Coronavirus/COVID-19? No / Unsure 03/19/2023 9:19 AM EDT documented as of this encounter Plan of Treatment Not on file documented as of this encounter Visit Diagnoses Not on filedocumented in this encounter
--- OUTSIDE RECORDS SUMMARY | 2025-01-12 08:24 | XMS_ITS | Clinical Summary ---
Author Organization [facility] Address [address] [place] [address] [address] [place] [address] Care Team Providers Care Environmental Monitoring Technician Name Role Phone Unavailable Primary Care Provider Unavailabl e Allergies No known active allergies Medications albuterol (Ventolin HFA) 108 (90 Base) MCG/ACT inhaler Inhale 2 puffs every 4 (four) hours if needed. Active Active Problems Problem Noted Date Diagnosed Date Periodontal disease 12/02/2024 Dental calculus 12/02/2024 Missing teeth, acquired 12/02/2024 Asthma 11/28/2024 Encounters Date Type Department Care Team Description 12/02/2024 1:00 PM EST Office Visit [facility] [address] [place] [phone] Janina Amaya Periodontal disease (Primary Dx); Dental calculus; Missing teeth, acquired 12/01/2024 Telephone [facility] [address] [place] [address] Janina Amaya 11/28/2024 3:30 PM EST Office Visit [facility] [address] [place] [phone] Basil Barnard DMD 11/28/2024 8:30 AM EST Office Visit [facility] [address] [place] [phone] Basil Barnard DMD Mild intermittent asthma, unspecified whether complicated (Primary Dx) from Last 3 Months Social History Tobacco Use Types Packs/Day Years Used Date Smoking Tobacco: Never Smokeless Tobacco: Never Tobacco Cessation:Counseling Given: Not Answered Alcohol Use Standard Drinks/Week Comments Never 0 (1 standard drink = 0.6 oz pur e alcohol) Comments Unknown Sex and Gender Information Value Date Recorded Sex Assigned at Female 07/28/2022 10:15 AM EDT Legal Sex Female 10:15 AM EDT Gender Identity Female 07/28/2022 10:15 AM EDT Sexual Orientation Straight 07/28/2022 10 :15 AM EDT Last Filed Vital Signs Vital Sign Reading Time Taken Comments Blood Pressure 118/70 12/02/2024 12:56 PM EST Pulse - - Temperature - - Respiratory Rate - - Oxygen Saturation - - Inhaled Oxygen Concentration - - Weight - - Height - - Body Mass Index - - Plan of Treatment Health Maintenance Due Date Last Done Comments CT Colonography 1977 Colonoscopy 1977 Colorectal Cancer Screening 1977 Depression Screening 1977 FIT DNA/Cologuard 1977 FIT 1977 FOBT 1977 HIV Screening 1977 SDOH Screening 1977 Sigmoidoscopy 1977 Alcohol/Substance Use Screening 1989 Family Planning (PISQ) 1992 Hepatitis C Screening 1995 Hepatitis B Vaccines (1 of 3 - 19+ 3-dose series) 1996 Pneumococcal Vaccine: Pediatrics (0 to 5 Years) and At-Risk Patients (6 to 49) Years) (1 of 2 - PCV) 1996 Pap Smear 1998 Cervical Cancer Screening 2007 HPV/Cotest 2007 Mammogram 2017 COVID-19 Vaccine (1 - 2023- season) 2024 Influenza Vaccine (#1) 2024 Dental Oral Exam 06/05/2025 12/02/2024, 08/2022, 11/29/2020, Additional history exists Dental Prophylaxis 06/05/2025 12/02/2024, 0 05/09/2022, 11/29/2020, Additional history exists Tobacco Screening 12/02/2025 12/02/2024 Dental X-Ray: Bitewings 12/03/2025 12/03/19 25, 05/09/2022, 11/29/2020, Additional history exists Zoster Vaccines (1 of 2) 2027 DTaP/Tdap/Td Vaccines (2 - Td or Tdap) 05/20/2027 05/20/2017 Dental X-Ray: Full Mouth 12/04/2027 025, 11/29/2020, 09/04/2017, Additional history exists RSV Patients and Patients Aged 60 years or older (1 - 1-dose 75+ series) 2052 HIB Vaccines Aged Out No longer eligi [...] patient's age to complete this topic Meningococcal Vaccine Aged Out No claus silvina eligible based on patient's age to complete this topic RSV under 20 months Aged Out No longe r eligible based on patient's age to complete this topic Rotavirus Vaccines Aged Out No longer eligible based on patient's age to complete this topic Procedures Procedure Name Priority Date/Time Associated Diagnosis Comments PERIODIC ORAL EVALUATION - ESTABLISHED PATIENT Routine 12/02/2024 1:00 PM EST CASE PRESENTATION, DETAILED AND EXTENSIVE TREATMENT PLANNING Routine 12/02/2024 1:00 PM EST Periodontal disease Dental calculus Missing teeth, acquired ORAL HYGIENE INSTRUCTIONS Routine 12/02/2024 1:00 PM EST Periodontal disease Dental calculus Missing teeth, acquired INTRAORAL - COMPLETE SERIES OF RADIOGRAPHIC IMAGES Routine 12/02/2024 1:00 PM EST Periodontal disease Dental calculus Missing teeth, acquired PROPHYLAXIS - ADULT Routine 12/02/2024 1 :00 PM EST Periodontal disease Dental calculus Missing teeth, acquired CASE PRESENTATION, DETAILED AND EXTENSIVE TREATMENT PLANNING Routine 11/28/2024 3:30 PM EST 5 REPLACE BROKEN TEETH - PER TOOTH Routine 11/28/2024 3:30 PM EST DENTURE IMPRESSION Routine 11/28/2024 8: 30 AM EST from Last 3 Months Insurance [facility] STAND ADULT
--- OUTSIDE RECORDS SUMMARY | 2025-01-12 08:25 | XMS_ITS | Encounter Summary ---
Author Organization [facility] Address [address] [place] [address] [address] [place] [address] Care Team Providers Care Hand Cigar Making Supervisor Name Role Phone Unavailable Primary Care Provider Unavailabl e Encounter Details Date Type Department Care Team (Latest Contact Info) Description 05/09/2022 Abstract [facility] Dental, Provider, DDS Social History Tobacco Use Types Packs/Day Years Used Date Smoking Tobacco: Never Assessed Comments Unknown Sex and Gender Information Value Date Recorded Sex Assigned at Female 07/28/2022 10:15 AM EDT Legal Sex Female 10:15 AM EDT Gender Identity Female 07/28/2022 10:15 AM EDT Sexual Orientation Straight 07/28/2022 10 :15 AM EDT documented as of this encounter Plan of Treatment Not on file documented as of this encounter Visit Diagnoses Not on filedocumented in this encounter
--- OUTSIDE RECORDS SUMMARY | 2025-01-12 08:25 | XMS_ITS | Encounter Summary ---
Author Organization [employer] [facility] Address [address] [place] [address] [address] [place] [address] Care Team Providers Care Strategic Sourcing Manager Name Role Phone Unavailable Primary Care Provider Unavailabl e Encounter Details Date Type Department Care Team (Latest Contact Info) Description 11/29/2020 Abstract [facility] Dental, Provider, DDS Social [...]
--- OUTSIDE RECORDS SUMMARY | 2025-01-12 08:25 | XMS_ITS | Clinical Summary ---
Author Organization [email or web address] [facility] it Address [address] [place] [address] Care Team Providers Care Wet Wheeler Name Role Phone Unavailable Primary Care Provider Unavailabl e Social History Tobacco Use Types Packs/Day Years Used Date Smoking Tobacco: Never Assessed Comments Unknown Sex and Gender Information Value Date Recorded Sex Assigned at Not on file Legal Sex Female 11:13 AM EST Gender Identity Not on file Sexual Orientation [...] Vaccine (2023-2 5 season) 2024 Influenza Vaccine (Season Ended) 2025 HIB Vaccines Aged Out No longer eligi [...] patient's age to complete this topic Meningococcal B Vaccine Aged Out No l onger eligible based on patient's age to complete [...]
--- NOTE | 2025-01-12 08:35 | ED_ITS ---
HPI - Eye Problem General Chief complaint: Eye Problems Stated complaint: Allergic reaction? Itchiness both eyes Time Seen by Provider: 01/12/25 08:09 Source: patient Mode of arrival: ambulatory Limitations: no limitations History of Present Illness ED Provider: Adria Moyer PA-C HPI Narrative: 49 yo female presents to the ER for evaluation of bilateral eye itching, puffy eyelids for the last 4 days after getting eyelash extensions put on. history of similar presentation a few years ago when she had eyelashes placed. she saw her doctor 2 days ago and they said her eyes looked okay and to use saline eye drops. patient reports her upper eye lids are still puffy and itchy. no vision changes. no drainage. no fevers. no other rashes anywhere else on the body. chief complaint: other (eye itchiness and swelling) Onset (ago): day(s) (4) Onset description: gradual Duration: constant Location: both eyes Eye Symptoms: burning, redness and itching Place: home Severity: moderate If Pain, Quality: burning and other (itching) Associated symptoms: none Treatments Prior to Arrival: irrigated eye and OTC eye drops Related Data Patient tetanus UTD: Yes Previous Rx's ?Medication ?Instructions ?Recorded Ventolin HFA 90 mcg/actuation 2 puff inhalation Q6-8H PRN 12/23/24 aerosol inhaler (albuterol sulfate) shortness of breath or wheezing 90 days #3 inhalers cetirizine 10 mg tablet (Zyrtec) 10 mg PO DAILY #14 tabs 01/12/25 Allergies Allergy/AdvReac Type Severity Reaction Status Date / Time No Known Allergies Allergy Mild NKA Verified 01/12/25 08:03 Review of Systems Review of Systems: Yes all other systems are reviewed and are negative PMFSH Past Medical History Medical History Perianal abscess Pure hypercholesterolemia Breast cancer screening by mammogram Impaired fasting glucose Numbness of right foot Headache Low back pain Neck pain Perianal cyst Impacted cerumen of both ears Skin mole Tenosynovitis of thumb Tenosynovitis of forearm Overweight (BMI 25.0-29.9) Medical marijuana use Bipolar disorder Anxiety Insomnia Migraine Asthma Surgical History Status post abdominal hysterectomy (~02/09/13) History of section (~07/2011) History of breast augmentation (~02/18/10) History of incision and drainage (~2008) Family History Family History Father Unknown family medical history Mother Diabetes mellitus Hypertension Asthma Paternal Grandfather Alzheimer's dementia Social History Social History Housing: Apartment Alcohol intake: never Patient Tobacco Use Status: Never used Tobacco e-Cigarette/Vaping Use: Never Used Second Hand Smoke Exposure: Yes Substance Use Type: Marijuana Advance Directives: No Advance Directives Information Provided: Yes service: No Current occupational status: employed 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 Oriented X3. No acute distress. HEENT: normal inspection of the head and face. bilateral upper eyelids with mild swelling, minimal erythema, normal appearing eyelashes, normal appearing conjuctiva and sclera bilaterally. normal appearing lower lids. very minimal periorbital edema CVS: Normal heart rate and rhythm. Pulses normal. Respiratory: No respiratory distress. speaking in complete sentences Skin: Skin warm and dry. Normal skin color. Normal skin turgor. No rashes. Extremities: normal inspection x4, no joint swelling, no peripheral edema Neuro: Oriented X 3. grossly normal, nonfocal Medical Decision Making Medical Decision Making MDM Narrative: 49 yo female presenting with bilateral eye itching and swelling after using eyelash extensions 4 days ago which she removed. exam and clinical presentation are c/w localized allergic reaction, very mild will prescribe zyrtec and encourage ice PRN for swelling and itching stable for d/c home Differential Diagnosis Differential Diagnoses: The differential diagnosis associated with the presentation includes conjunctivitis, localized allergic reaction, iritis, periorbital cellulitis, preseptal cellulitis External Record Review External record reviewed: Prior outpatient labs Tests considered The following testing was considered but not selected: considered fluorescence testing but low suspicion for abrasion Prescription Management I considered prescription management with: Pain Medication and Antibiotic Critical Care Time Critical Care Time Critical Care Time: No Discharge Plan Discharge Clinical Impression: Allergic reaction Qualifiers: Encounter type: initial encounter Qualified Code(s): T78.40XA - Allergy, uns pecified, initial encounter Patient Disposition: Home, Self-Care Instructions: General Allergic Reaction (ED) Additional Instructions: take the prescribed medication for allergic reaction use ice to the area as needed for itching and discomfort If you develop new or worsening symptoms call 911 or come back to the ER for further evaluation. Prescriptions: New cetirizine [Zyrtec] 10 mg tablet 10 mg PO DAILY Qty: 14 0RF No Action albuterol sulfate [Ventolin HFA] 90 mcg/actuation HFA aerosol inhaler 2 puff inhalation Q6-8H PRN (Reason: shortness of breath or wheezing) 90 Days Qty: 3 3RF Stand Alone Forms: Work/School Release Interventions: ED Discharge Assessment Last Done: 01/12/25 08:45 Discharge Date/Time: 01/12/25 08:46 Print Language: Burmese
[2025-01-12 08:45] VITALS: BP 114/69; PULSE 73; RESP 16; TEMP 36.2; O2SAT 100
== END 2025-01-12 08:46 | disposition home or self-care (01) ==
PROVIDERS: Emergency Provider Emergency Medicine; PCP Internal Medicine
DX: T78.40XA Allergy, unspecified, initial encounter (principal); L29.9 Pruritus, unspecified; X58.XXXA Exposure to other specified factors, initial encounter
CPT/HCPCS: 99283

== ENCOUNTER 2025-01-31 14:28 | Outpatient (REF) | payer OTHER, SELFPAY ==
--- NOTE | ~2025-01-31 | US_ITS ---
EXAMINATION: US LEFT LOWER QUADRANT, LIMITED/FOLLOW UP CLINICAL INFORMATION: Lump, left lower quadrant. COMPARISON: None available. TECHNIQUE: Limited real-time linear transducer ultrasound using grayscale technique of the region of concern in the umbilical's. FINDINGS: No fluid collection. No soft tissue mass. No protrusion of the intra-abdominal organs. US/US pelvic limited IMPRESSION: Negative exam. Electronically signed by: Davy Ly MD 01/31/2025 02:55 PM EDT
--- OUTSIDE RECORDS SUMMARY | 2025-01-31 15:42 | XMS_ITS | Clinical Summary ---
Author Organization [facility] it Address [address] [place] [address] Care Team Providers Care Rehab Director Name Role Phone Unavailable Primary Care Provider [...]
== END 2025-01-31 14:29 | disposition home or self-care (01) ==
LOC: HO.US 14:28
PROVIDERS: PCP Internal Medicine; Visit Provider Internal Medicine
DX: R19.04 Left lower quadrant abdominal swelling, mass and lump (principal)
CPT/HCPCS: 76857

== ENCOUNTER → 2025-01-31 14:29 | Outpatient (BNV) | payer OTHER, SELFPAY | PROVIDERS: PCP Internal Medicine; Visit Provider Radiology Diagnostic Radiology | DX: R19.04 Left lower quadrant abdominal swelling, mass and lump (principal) | CPT/HCPCS: 76857 ==

== ENCOUNTER 2025-05-01 16:52 | Outpatient (AMB) | payer OTHER, SELFPAY ==
--- OUTSIDE RECORDS SUMMARY | 2025-05-01 16:54 | XMS_ITS | Clinical Summary ---
Author Organization [employer] [facility] it Address [address] [place] [address] Care Team Providers Care Tilt Wall Supervisor Name Role Phone Unavailable Primary Care [...] Smear 1998 Colorectal Cancer Screening: Colonoscopy 08/26/2022 HIV Screening 08/26/2022 Hepatitis C Screening 08/26/2022 Social Influencers of Health Screening 08/26/2022 COVID-19 Vaccine (2023-2 5 season) 2024 Depression Screening 09/28/2024 Influenza Vaccine (#1) 2025 HIB Vaccines Aged Out No longer [...] 5 Years) and At-Risk Patients (6 to 49 Years) Aged Out No longer eligible b ased on patient's age to complete this topic RSV Immunization Patients Un rayna 20 months Aged Out No longer eligible b ased on patient's age to complete this topic Varicella Vaccines Aged Out No longer eligible based on patient's age to complete this topic
[2025-05-01 16:55] VITALS: BP 90/60; RESP 18; TEMP 36.2; BMI 24.8
--- NOTE | 2025-05-01 16:55 | A.OFFPC_ITS ---
Vital Signs 05/01/25 16:55 Height 5 ft 8 in Weight 163 lb 2 oz BMI 24.8 BP 90/60 Blood Pressure Location Lt brachial Position Sitting Respiration 18 Pulse Source Pulse Oximeter Temp 97.1 F Temp Source Temporal Artery Scan Oxygen Delivery Method Room Air Intake Visit Reasons: discuss lump on neck Electrician Research Required: No Accompanied by: Self / Same As Patient Allergies No Known Allergies Allergy (Mild, Verified 05/01/25 17:12) NKA Medication List - Last Reconciled 05/01/25 by Perez Noriega MD Ventolin HFA 90 mcg/actuation (albuterol sulfate) 2 puffs inhalation Q6-8H PRN 90 days NS Tobacco use date assessed: 05/01/25 Dental Screening Dental Screen Date: 05/01/25 Did you have a dental visit in the last 12 months?: Yes Did you have a dental problem in the last 6 months where you did not have access to dental care?: No Was dental information given to patient?: Patient has dentist HPI discuss lump on neck HPI Details - The patient is a 50-year-old female pr esenting with concerns of an abdominal mass and swelling in the feet. - Abdominal mass: Reports a palpable bum p in the stomach for about a month. Ultrasound done back in January 2025 came back negative and patient would like to see about getting an MRI or some imaging studies done for further evaluation - Possible hernia: Describes mass as pebbles d and strong, suggesting hernia. MRI considered due to surgical history. - Peripheral edema: Reports foot swellin g for two weeks, unusual for patient. History of hysterectomy noted. - Relevant medical history: History of h ysterectomy, no recent tests, no allergies to contrast, no metal implants or pacemakers. [facility] Medical History Perianal abscess Pure hypercholesterolemia Breast cancer screening by mammogram Impaired fasting glucose Numbness of right foot Headache Low back pain Neck pain Perianal cyst Impacted cerumen of both ears Skin mole Tenosynovitis of thumb Tenosynovitis of forearm Overweight (BMI 25.0-29.9) Medical marijuana use Bipolar disorder Anxiety Insomnia Migraine Asthma Surgical History Status post abdominal hysterectomy (~02/09/13) History of section (~07/2011) History of breast augmentation (~02/18/10) History of incision and drainage (~2008) Family History Father Unknown family medical history Mother Diabetes mellitus Hypertension Asthma Paternal Grandfather Alzheimer's dementia Social History Housing: Apartment Alcohol intake: never Patient Tobacco Use Status: Never used Tobacco e-Cigarette/Vaping Use: Never Used Second Hand Smoke Exposure: Yes Substance Use Type: Marijuana service: No Current occupational status: employed 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 1. Little interest or pleasure in doing things: several days 2. Feeling down, depressed, or hopeless: not at all 3. Trouble falling or staying asleep, or sleeping too much: more than half the days 4. Feeling tired or having little energy: not at all 5. Poor appetite or overeating: not at all 6. Feeling bad about yourself - or that you are a failure or have let yourself or your family down: not at all 7. Trouble concentrating on things, such as reading the newspaper or watching television: not at all 8. Moving or speaking so slowly that other people could have noticed. Or the opposite - being so fidgety or restless that you have been moving around a lot more than usual: several days 9. Thoughts that you would be better off or of hurting yourself in some w ay: not at all Total score: 4 Depression Screening Interpretation: Positive Depression Screening Follow-up: Existing condition and Community Mental Health Worker F/U Depression Screening Done: Yes 57650 - PHQ-9 Billing: Yes Source: Developed by Drs. Solomon Duval, Alexa Degroot, José Miguel Lundberg and colleagues, with an educational zulema from [employer]. Thrive Questionnaire Date Thrive assessed: 05/01/25 I am a: Patient What is your living situation today?: I have a steady place to live Within the past 12 months, did the food you bought not last and you didn't have the money to get more?: Never true Within the past 12 months, did you worry whether your food would run out before you got money to buy more?: Never true Do you have trouble paying for medicines?: No Do you have trouble getting transportation to medical appointments?: No Do you have trouble paying your heating and electricity bill?: No Do you have trouble taking care of your child, family member or friend?: No Do you have trouble with day-to-day activities such as bathing, preparing meals, shopping, managing finances, etc.?: No Are you currently unemployed and looking for a job?: No Are you interested in more education?: No Please select the resources that you would like help with: None Currently or been in a relationship where the following occur: No concerns reported THRIVE Score: 0 AUDIT C Alcohol Use Questionnaire (AUDIT-C) 1. How often do you have a drink containing alcohol?: Monthly or less 2. How many drinks containing alcohol do you have on a typical day when you are drinking?: 1 or 2 3. How often do you have six or more drinks on one occasion?: Never Total Score: 1 Score Reviewed/Action Taken: Yes MALINA-7 AMB Questionnaire MALINA-7 Date MALINA - 7 assessed: 05/01/25 Feeling nervous, anxious, or on edge: 0 = Not at all Not being able to stop or control worryin = Not at all Worrying too much about different things: 0 = Not at all Trouble relaxin = Not at all Being so restless that it is hard to sit still: 0 = Not at all Becoming easily annoyed or irritable: 0 = Not at all Feeling afraid as if something awful might happen: 0 = Not at all Total MALINA-7 score (0-4 normal; 5-9 mild; 10-14 moderate; 15-21 severe): 0 Source: Developed by Drs. Solomon Duval, Alexa Degroot, José Miguel Lundberg and colleagues, with an educational zulema from [employer]. Review of Systems Const Denies chills, Reports difficulty sleeping, Denies fatigue, Denies fever(s) and Denies headache(s) ENT Denies dysphagia, Denies dizziness, Denies otalgia, Denies headache(s), Denies neck pain, Denies odynophagia and Denies sore throat Card Denies chest pain, Denies palpitations and Denies dyspnea Resp Denies chest congestion, Denies cough and Denies dyspnea GI Details: (+) recurrent 'lump' and pressure-like sensation over the left lower abdominal area Denies abdominal pain, Denies constipation, Denies dysphagia, Denies heartburn, Denies diarrhea, Denies nausea, Denies odynophagia and Denies vomiting Denies difficulty voiding, Denies nocturia, Reports hot flashes (occasionally) and Denies dysuria Musc Denies back pain and Denies neck pain Skin/Breast Denies rash Neuro Denies dizziness and Denies headache(s) Psych Reports anxiety Endo Denies fatigue and Denies palpitations Physical exam (Primary Care) Vital Signs: Last Vital Signs Temp 97.1 F 05/01/25 16:55 Resp 18 05/01/25 16:55 BP 90/60 05/01/25 16:55 Oxygen Delivery Method Room Air 05/01/25 16:55 BMI result Body Mass Index 24.8 Tobacco/Smoking Status: Tobacco use Status Tobacco use date assessed 05/01/25 05/01/25 17:04 Patient Tobacco Use Status Never used Tobacco 05/01/25 16:56 e-Cigarette/Vaping Use Never Used 05/01/25 16:56 PHQ-9: PHQ-9 Score PHQ-9: Total score 4 05/01/25 17:19 Depression Screening Interpretation: Positive Depression Screening Follow-up: Existing condition and Community Mental Health Worker F/U Thrive Assessment: Date of Thrive Assessment Date Thrive assessed 05/01/25 05/01/25 17:04 Currently or been in a relationship where the following occur: No concerns reported Const General: no acute distress and alert HENMT Ears: TM's normal bilaterally and EAC's normal Throat: Yes posterior oropharynx normal and Yes tonsils normal (no TP congestion) Neck Neck: Yes supple and No lymphadenopathy Thyroid: Thyroid normal Resp Auscultation: clear to auscultation bilaterally, no rales and no wheezes Cardio Rate: regular rate Rhythm: regular rhythm Heart sounds: no murmurs GI Palpation (GI): Soft to palpation, nontender, no guarding and no masses (no masses palpable on exam) Auscultation: normal bowel sounds General: Yes no CVA tenderness Back/Spine/Pelvis Back: no CVA tenderness Thoracic/Lumbar Spine: No lumbar spinal tenderness Skin Rashes: no rashes Extrem General: Yes no clubbing, cyanosis or edema Coding Level of Care Code Est Pt Level 3 (53766) Diagnoses Reducible bulge of abdominal wall R19.00 Left lower quadrant abdominal mass R19.04 Additional Codes PHQ-9 - 49020 - PHQ-9 Billing: Yes ([id number]) Assessment & Plan Assessment & Plan (1) Reducible bulge of abdominal wall: Code(s): R19.00 - Intra-abdominal and pelvic swelling, mass and lump, unspecified site Category: Medical (2) Left lower quadrant abdominal mass: Code(s): R19.04 - Left lower quadrant abdominal swelling, mass and lump Category: Medical Plan - Order MRI of abdomen and pelvis for mass evaluation. - Conduct blood tests for kidney function and cholesterol. - Monitor peripheral edema, evaluate if persistent. Patient was informed and verbally consented to the use of an ambient scribe for clinic note documentation during this visit. To return as scheduled next month for her annual physical examination Orders: Orders MR pelvis wo/w con 05/01/25 R19.00 - Intra-abdominal and pelvic swelling, mass and lump, unspecified site MR abdomen wo/w con 05/01/25 R19.00 - Intra-abdominal and pelvic swelling, mass and lump, unspecified site
== END 2025-05-01 17:56 | disposition home or self-care (01) ==
LOC: HO.HMCH 16:53
PROVIDERS: PCP Internal Medicine; Visit Provider Internal Medicine
DX: R19.00 Intra-abdominal and pelvic swelling, mass and lump, unspecified site (principal); R19.04 Left lower quadrant abdominal swelling, mass and lump

== ENCOUNTER → 2025-05-01 16:52 | Outpatient (BNVA) | payer OTHER, SELFPAY | PROVIDERS: PCP Internal Medicine; Visit Provider Internal Medicine | DX: R19.04 Left lower quadrant abdominal swelling, mass and lump (principal); Z13.31 Encounter for screening for depression; Z13.39 Encounter for screening examination for other mental health and behavioral disorders | CPT/HCPCS: 96127; 99212 ==

== ENCOUNTER 2025-05-26 07:31 | Outpatient (REF) | payer OTHER, SELFPAY ==
--- OUTSIDE RECORDS SUMMARY | 2025-05-26 07:35 | XMS_ITS | Encounter Summary ---
Author Organization [facility] Address [address] [place] [address] Care Team Providers Care Scale Attendant Name Role Phone Unavailable Primary Care Provider Unavailabl e Encounter Details Date Type Department Care Team (Latest Contact Info) Description 11/29/2020 Abstract [facility] CONVERSIONS Dental, Provider, DDS Social History Tobacco Use Types Packs/Day Years Used Date Smoking Tobacco: Never Assessed Comments Unknown Sex and Gender Information Value Date Recorded Sex Assigned at Female 07/28/2022 10:15 AM EDT Legal Sex Female 10:15 AM EDT Gender Identity Female 07/28/2022 10:15 AM EDT Sexual Orientation Straight 07/28/2022 10 :15 AM EDT documented as of this encounter Plan of Treatment Upcoming Encounters Date Type Department Care Team (Late st Contact Info) Description 06/19/2025 8:00 AM EDT Office Visit [facility] ADULT DENTAL [address] [place] [address] Basil Barnard, ELO [address] [place] [address] 07/10/2025 8:00 AM EDT Office Visit [facility] ADULT DENTAL [address] [place] [address] Janina Amaya [address] [place] [address] documented as of this encounter Visit Diagnoses Not on filedocumented in this encounter
--- OUTSIDE RECORDS SUMMARY | 2025-05-26 07:35 | XMS_ITS | Encounter Summary ---
Author Organization [employer] [facility] Address [address] [place] [address] Care Team Providers Care Underwear Cutter Name Role Phone Unavailable Primary Care Provider Unavailabl e Encounter Details Date Type Department Care Team (Latest Contact Info) Description 05/09/2022 Abstract [facility] CONVERSIONS Dental, Provider, DDS Social History Tobacco [...] Description 06/19/2025 8:00 AM EDT Office Visit [facility] ADULT DENTAL [address] [place] [address] Basil Barnard, ELO [address] [place] [address] 07/10/2025 8:00 AM EDT Office Visit [facility] ADULT DENTAL [address] [place] [address] Janina Amaya [address] [place] [address] documented as of this encounter Visit Diagnoses Not on filedocumented in this encounter
--- OUTSIDE RECORDS SUMMARY | 2025-05-26 07:35 | XMS_ITS | Clinical Summary ---
Author Organization [employer] [facility] Address [address] [place] [id number] Care Team Providers Care Razor Grinder Name Role Phone Unavailable Primary Care Provider Unavailabl e Allergies No known active allergies Medications albuterol (Ventolin HFA) 108 (90 Base) MCG/ACT inhaler Inhale 2 puffs every 4 (four) hours if needed. Active Active Problems Problem Noted Date Diagnosed Date Periodontal disease 12/02/2024 Dental calculus 12/02/2024 Missing teeth, acquired 12/02/2024 Asthma 11/28/2024 Social History Tobacco Use Types Packs/Day Years [...] Mass Index - - Plan of Treatment Upcoming Encounters Date Type Department Care Team (Late st Contact Info) Description 06/19/2025 8:00 AM EDT Office Visit [facility] ADULT DENTAL [address] [place] [address] Basil Barnard DMD [address] [place] [address] 07/10/2025 8:00 AM EDT Office Visit [facility] ADULT DENTAL [address] [place] [address] Janina Amaya [address] [place] [address] Health Maintenance Due Date Last Done Comments CT Colonography 1977 Colonoscopy 1977 Colorectal Cancer Screening 1977 Depression Screening 1977 FIT DNA/Cologuard 1977 FIT 1977 FOBT 1977 HIV Screening 1977 SDOH Screening 1977 Sigmoidoscopy 1977 Disability Screening 1977 Alcohol/Substance Use Screening 1989 Family Planning (PISQ) 1992 Hepatitis C Screening 1995 Hepatitis B Vaccines (1 of 3 - 19+ 3-dose series) 1996 Pneumococcal Vaccine: Pediatrics (0 to 5 Years) and At-Risk Patients (6 to 49) Years (1 of 2 - PCV) 1996 Pap Smear 1998 Cervical Cancer Screening 2007 HPV/Cotest 2007 Mammogram 2017 COVID-19 Vaccine ( - season) 2024 Influenza Vaccine (#1) 2025 Dental Oral Exam 06/05/2025 12/02/2024, 08/2022, 11/29/2020, [...] Procedure Name Priority Date/Time Associated Diagnosis Comments PROPHYLAXIS - ADULT Routine 12/02/2024 1 :00 PM EST Periodontal disease Dental calculus Missing teeth, acquired INTRAORAL - COMPLETE SERIES OF RADIOGRAPHIC IMAGES Routine 12/02/2024 1:00 PM EST Periodontal disease Dental calculus Missing teeth, acquired PERIODIC ORAL EVALUATION - ESTABLISHED PATIENT Routine 12/02/2024 1:00 PM EST from Last 3 Months or Most Recently Relevant to Health Maintenance Insurance [facility] MEDICAID STAND ADULT
--- OUTSIDE RECORDS SUMMARY | 2025-05-26 07:35 | XMS_ITS | Encounter Summary ---
Author Organization [facility] Address [address] [place] [address] Care Team Providers Care Door Closer Name Role Phone Unavailable Primary Care Provider Unavailabl e Encounter Details Date Type Department Care Team ([facility] Contact Info) Description 03/23/2023 Abstract [facility] ADULT DENTAL [address] [place] [address] Basil Barnard DMD [address] [place] [address] Social History Tobacco Use Types Packs/Day Years [...] Upcoming Encounters Date Type Department Care Team ([facility] Contact Info) Description 06/19/2025 8:00 AM EDT Office Visit [facility] ADULT DENTAL [address] [place] [address] Basil Barnard, ELO [address] [place] [address] 07/10/2025 8:00 AM EDT Office Visit [facility] ADULT DENTAL [address] [place] [address] Janina Amaya [address] [place] [address] documented as of this encounter Visit Diagnoses Not on filedocumented in this encounter
--- OUTSIDE RECORDS SUMMARY | 2025-05-26 07:35 | XMS_ITS | Clinical Summary ---
Author Organization [employer] [facility] it Address [address] [place] [address] Care Team Providers Care Investigative Analyst Name Role Phone Unavailable Primary Care Provider [...] Influencers of Health Screening 08/26/2022 COVID-19 Vaccine ( - 2023-2 5 season) 2024 Depression Screening 09/28/2024 Influenza [...]
[2025-05-26 07:59] LABS: MANUAL DIFF FLAG NO
[2025-05-26 08:43] LABS: Hematocrit 43.3 % (37.0-47.0); Hemoglobin 14.9 g/dl (12.0-16.0); Imm Gran Abs Auto 0.01 X10*3/uL (0.00-0.03); Imm Gran Pct Auto 0.2 % (0.0-0.4); Lymphocytes Absolute Auto 2.4 X10*3/uL (1.2-4.9); Mean Corpuscular HGB Conc 34.4 g/dl (31.0-35.0); Mean Corpuscular Hemoglobin 30.3 pg (27.0-33.0); Mean Corpuscular Volume 88.0 fL (80.0-98.0); NRBC Abs Auto 0.000 X10*3/uL (0.0-0.012); NRBC Pct Auto 0.0 /100WBC (0.0-0.2); Platelet Count 227 X10*3/uL (160-400); Red Blood Count 4.92 X10*6/uL (4.20-5.50); White Blood Count 5.4 X10*3/uL (4.8-10.8)
[2025-05-26 09:08] LABS: Appearance Urine Clear; Glucose Urine UA Negative (Negative); PH 5.5 (5.0-9.0); Specific Gravity - Urine 1.015 (1.005-1.025)
[2025-05-26 09:36] LABS: Alanine Aminotransferase 34 U/L (0-31); Albumin Level 4.1 g/dL (3.5-5.0); Alkaline Phosphatase 72 U/L (39-117); Anion Gap 11 (12-20); Aspartate Amino Transferase 24 U/L (5-31); Blood Urea Nitrogen 21 mg/dL (9-16); Calcium 8.5 mg/dL (8.4-10.2); Carbon Dioxide 25 mmol/L (22-29); Chloride 110 mmol/L (96-108); Cholesterol 221 mg/dL (<200); Estimated Glomerular Filt Rate > 60; HDL Cholesterol 51 mg/dL (>40); Potassium 4.1 mmol/L (3.3-5.1); Sodium 142 mmol/L (135-145); Total Protein 6.6 g/dL (6.5-8.0); Triglycerides 130 mg/dL (<150)
== END 2025-05-26 07:32 | disposition home or self-care (01) ==
LOC: HO.LAB 07:31
PROVIDERS: PCP Internal Medicine; Visit Provider Internal Medicine
DX: R30.0 Dysuria (principal); D64.9 Anemia, unspecified; E78.00 Pure hypercholesterolemia, unspecified; E55.9 Vitamin D deficiency, unspecified
CPT/HCPCS: 36415; 80053; 80061; 81003; 82306; 84443; 85025

== ENCOUNTER 2025-06-26 12:40 | Outpatient (REF) | payer OTHER, SELFPAY ==
--- OUTSIDE RECORDS SUMMARY | 2025-06-21 08:00 | XMS_ITS | Encounter Summary ---
Author Organization [employer] [facility] Address [address] [place] [address] Care Team Providers Care Wood Shingle Roofer Name Role Phone Unavailable Primary Care Provider Unavailabl e Reason for Visit * Reason Comments Filling Encounter Details Date Type Department Care Team (Late st Contact Info) Description 06/21/2025 8:00 AM EDT Office Visit [facility]ULT D[facility]AL [address] [place] [address] Basil Barnard DMD [address] [place] [address] Social History Tobacco Use Types Packs/Day Years [...] AM EDT documented as of this encounter Progress Notes * Basil Barnard DMD - 06/21/2025 8:00 AM EDT Impression of P/ and bite registration of P/ NV: Teeth try in of P/ Leroy documented in this encounter Plan of Treatment Upcoming Encounters Date Type Department Care Team (Late st Contact Info) Description 06/30/2025 8:00 AM EDT Office Visit [facility] ADULT D[facility]AL [address] [place] [address] Basil Barnard DMD [address] [place] [address] 07/10/2025 8:00 AM EDT Office Visit [facility] ADULT DENTAL [address] [place] [address] Janina Amaya [address] [place] [address] documented as of this encounter Procedures Procedure Name Priority Date/Time Associated Diagnosis Comments DENTURE IMPRESSION Routine 06/21/2025 8:00 AM EDT documented in this encounter Visit Diagnoses Not on filedocumented in this encounter
--- NOTE | ~2025-06-26 | CT_ITS ---
EXAMINATION: CT ABDOMEN AND PELVIS WITH CONTRAST CLINICAL INFORMATION: R19.00 - Intra-abdominal and pelvic swelling, mass and lump, unspecified, Hx of hysterectomy, r/o OCCULT hernia; COMPARISON: June 21, 2017 TECHNIQUE: Multidetector volumetric images were obtained from the superior aspect of the liver through the pubic symphysis following administration 85 mL of Omnipaque 350 intravenous contrast. Sagittal and coronal reformatted images were obtained on the technologist's workstation. Oral contrast: No This CT examination was performed using dose optimization techniques as appropriate, variously including the following: *Automated exposure control *Adjustment of mA and/or kV according to patient size (this includes techniques or standardized protocols for targeted exams where dose is matched to indication/reason for exam; i.e. extremities or head) *Use of iterative reconstruction technique FINDINGS: LUNG BASES: Bilateral breast implants are partially imaged and grossly intact. Lung bases are clear. LIVER, GALLBLADDER, AND BILIARY TREE: Simple hepatic cyst in the left lateral lobe of the liver has increased in size since the prior. There is diffuse decreased density of the liver. The gallbladder is unremarkable with no evidence of radiopaque gallstones, gallbladder wall thickening, or obvious pericholecystic inflammatory changes. PANCREAS: Unremarkable. SPLEEN: Unremarkable. ADRENAL GLANDS: Unremarkable. KIDNEYS AND URETERS: The kidneys are normal in size, shape, and attenuation. No hydronephrosis, hydroureter, or calculi seen. No perinephric stranding. BLADDER: Unremarkable. GASTROINTESTINAL TRACT: The small and large bowel are unremarkable. The appendix is unremarkable. ABDOMINAL WALL: Small left inguinal hernia contains adipose tissue. Hernia likely passes medial to the epigastric vessels. No other hernia is identified. LYMPH NODES: Normal. VASCULAR: Unremarkable. PELVIC VISCERA: There are surgical changes related to hysterectomy. Suture line is present cephalad to the bladder and extending toward the adnexa. OSSEOUS STRUCTURES: Unremarkable. CT/CT abdomen pelvis w IV con IMPRESSION: Small left inguinal hernia contains adipose tissue. Hepatic steatosis. Fleischner guidelines were followed. Electronically signed by: Andrei Wray MD 06/26/2025 03:18 PM EDT
--- OUTSIDE RECORDS SUMMARY | 2025-06-26 13:49 | XMS_ITS | Encounter Summary ---
Author Organization [employer] [facility] Address [address] [place] [address] Care Team Providers Care Livestock Haulier Name Role Phone Unavailable Primary Care Provider Unavailabl e Encounter Details Date Type Department Care Team (Latest Contact Info) Description 05/09/2022 Abstract [facility] CONVERSIONS Dental, Provider, DDS Social History Tobacco [...] Description 06/30/2025 8:00 AM EDT Office Visit [facility] ADULT [facility] [address] [place] [address] Basil Barnard, ELO [address] [place] [address] 07/10/2025 8:00 AM EDT Office Visit [facility]ULT [facility] [address] [place] [address] Monique, Janina [address] [place] [address] documented as of this encounter Visit Diagnoses Not on filedocumented in this encounter
--- OUTSIDE RECORDS SUMMARY | 2025-06-26 13:49 | XMS_ITS | Encounter Summary ---
Author Organization [employer] [facility] Address [address] [place] [address] Care Team Providers Care Teacher Of The Hearing Impaired Name Role Phone Unavailable Primary Care Provider Macho e Encounter Details Date Type Department Care Team (Late st Contact Info) Description 03/23/2023 Abstract [facility] ADULT DENTAL [address] [place] [address] Basil Barnard, DMD [address] [place] [address] Social History Tobacco Use Types Packs/Day Years [...] Encounters Date Type Department Care Team (Late Contact Info) Description 06/30/2025 8:00 AM EDT Office Visit [facility] ADULT DENTAL [address] [place] [address] Basil Barnard, DMD [address] [place] [address] 07/10/2025 8:00 AM EDT Office Visit [facility] ADULT DENTAL [address] [place] [address] Janina Amaya [address] [place], [place] [id number] documented as of this encounter Visit Diagnoses Not on filedocumented in this encounter
--- OUTSIDE RECORDS SUMMARY | 2025-06-26 13:49 | XMS_ITS | Clinical Summary ---
Author Organization [employer] [facility] Address [address] [place] [address] Care Team Providers Care Sales Engagement Executive Name Role Phone Unavailable Primary Care Provider Unavailabl e Allergies No known active allergies Medications albuterol (Ventolin HFA) 108 (90 Base) MCG/ACT inhaler Inhale 2 puffs every 4 (four) hours if needed. Active acetaminophen (Tylenol) 500 MG tablet Take 1 tablet (500 mg) by mouth every 8 (eight) hours if needed for mild pain or moderate pain for up to 5 days. 15 tablet 06/10/20 25 chlorhexidine (Peridex) 0.12 % solution Use 15 mL in the mouth or throat if needed in the morning, at noon, and at bedtime (PROPHYLAXIS) for up to 5 days. 110 mL 06/10/20 25 Active Problems Problem Noted Date Diagnosed Date Stage 3 grade B molar/inciso r periodontitis per AAP/EFP 2017 classification 06/05/2025 Periodontal disease 12/02/2024 Dental calculus 12/02/2024 Missing teeth, acquired 12/02/2024 Asthma 11/28/2024 Encounters Date Type Department Care Team Description 06/21/2025 8:00 AM EDT Office Visit [facility] ADULT DENTAL [address] [place] [address] Basil Barnard DMD 06/12/2025 9:00 AM EDT Office Visit [facility] ADULT DENTAL [address] [place] [address] Janina Amaya 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 (Primary Dx); Dental calculus 06/12/2025 Travel 06/05/2025 9:00 AM EDT Office Visit [facility] ADULT DENTAL [address] [place] [address] Janina Amaya Dental calculus (Primary Dx); 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 05/30/2025 3:00 PM EDT Office Visit [facility] [address] [place] [address] Basil Barnard DMD 05/26/2025 9:00 AM EDT Office Visit [facility] ADULT DENTAL [address] [place] [address] Basil Barnard DMD from Last 3 Months Social History Tobacco [...] Sign Reading Time Taken Comments Blood Pressure 124/76 06/12/2025 9:01 AM EDT Pulse - - Temperature - - Respiratory Rate - - Oxygen Saturation - - Inhaled Oxygen Concentration - - Weight - - Height - - Body Mass Index - - Plan of Treatment Upcoming Encounters Date Type Department Care Team (Late st Contact Info) Description 06/30/2025 8:00 AM EDT Office Visit [facility] ADULT DENTAL [address] [place] [address] Basil Barnard DMD [address] [place] [address] 07/10/2025 8:00 AM EDT Office Visit [facility] ADULT DENTAL [address] [place] [address] Janina Amaya [address] [place] [address] Health Maintenance Due Date Last Done Comments [...] HPV/Cotest 2007 Mammogram 2017 COVID-19 Vaccine ( season) 2025 Influenza Vaccine (#1) 2025 Dental Oral Exam 06/05/2025 12/02/2024, 08/2022, 11/29/2020, Additional history exists Dental Prophylaxis 06/05/2025 12/02/2024, 0 05/09/2022, 11/29/2020, Additional history exists Dental X-Ray: Bitewings 12/03/2025 12/03/19 25, 05/09/2022, 11/29/2020, Additional history exists Tobacco Screening 06/21/2026 06/21/2025 Zoster Vaccines (1 of 2) 2027 DTaP/Tdap/Td [...] Associated Diagnosis Comments DENTURE IMPRESSION Routine 06/21/2025 8: 00 AM EDT CASE PRESENTATION, DETAILED AND EXTENSIVE TREATMENT PLANNING Routine 06/12/2025 9:00 AM EDT 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 Dental calculus LR PERIODONTAL SCALING AND ROOT PLANING - 1 TO 3 TEETH PER QUADRANT Routine 06/12/2025 9:00 AM EDT 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 Dental calculus UR PERIODONTAL SCALING AND ROOT PLANING - 1 TO 3 TEETH PER QUADRANT Routine 06/12/2025 9:00 AM EDT 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 Dental calculus LL PERIODONTAL SCALING AND ROOT PLANING - 1 TO 3 TEETH PER QUADRANT Routine 06/05/2025 9:00 AM EDT Dental calculus 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 ORAL HYGIENE INSTRUCTIONS Routine 06/05/2025 9:00 AM EDT Dental calculus 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 CASE PRESENTATION, DETAILED AND EXTENSIVE TREATMENT PLANNING Routine 06/05/2025 9:00 AM EDT Dental calculus 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 UL PERIODONTAL SCALING AND ROOT PLANING - 1 TO 3 TEETH PER QUADRANT Routine 06/05/2025 9:00 AM EDT Dental calculus 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 CASE PRESENTATION, DETAILED AND EXTENSIVE TREATMENT PLANNING Routine 05/30/2025 3:00 PM EDT REPAIR RESIN PARTIAL DENTURE BASE, MAX Routine 05/30/2025 3:00 PM EDT NO CHARGE VISIT Routine 05/26/2025 9:00 AM EDT PROPHYLAXIS - ADULT Routine 12/02/2024 1 :00 PM EST Periodontal disease Dental calculus Missing teeth, acquired INTRAORAL - COMPLETE SERIES OF RADIOGRAPHIC IMAGES Routine 12/02/2024 1:00 PM EST Periodontal disease Dental calculus Missing teeth, acquired PERIODIC ORAL EVALUATION - ESTABLISHED PATIENT Routine 12/02/2024 1:00 PM EST from Last 3 Months or Most Recently Relevant to Health Maintenance [facility] ST[facility] ADULT
--- OUTSIDE RECORDS SUMMARY | 2025-06-26 13:49 | XMS_ITS | Encounter Summary ---
Author Organization [employer] [facility] Address [address] [place] [address] Care Team Providers Care Machine Riveter Name Role Phone Unavailable Primary Care Provider Unavailabl e Encounter Details Date Type Department Care Team (Latest Contact Info) Description 11/29/2020 Abstract [facility] CONVERSIONS Dental, Provider, DDS Social [...] Description 06/30/2025 8:00 AM EDT Office Visit [facility] ADULT DENTAL [address] [place] [address] Basil Barnard, ELO [address] [place] [address] 07/10/2025 8:00 AM EDT Office Visit [facility] ADULT DENTAL [address] [place] [address] Monique, Janina [address] [place] [address] documented as of this encounter Visit Diagnoses Not on filedocumented in this encounter
--- OUTSIDE RECORDS SUMMARY | 2025-06-26 13:49 | XMS_ITS | Clinical Summary ---
Author Organization [employer] [facility] [place] [address] Care Team Providers Care Social Organization Professor Name Role Phone Unavailable Primary Care Provider [...] 08/26/2022 Social Influencers of Health Screening 08/26/2022 Depression Screening 09/28/2024 COVID-19 Vaccine (1 - 2023-2 5 season) 2025 Influenza Vaccine (#1) 2025 RSV Immunization Adult Patie nts (1 - 1-dose 75+ series) 2052 HIB [...]
[2025-06-26] MEDS: iohexoL 350 MG/ML 100 ML INFUS..BTL IV (15:01)
[2025-06-26] MEDS: Barium Sulfate Oral (Vanilla) 450 ML ORAL.SUSP 900 ML PO (15:01)
== END 2025-06-26 12:41 | disposition home or self-care (01) ==
LOC: HO.CT 12:40
PROVIDERS: PCP Internal Medicine; Visit Provider Internal Medicine
DX: R19.00 Intra-abdominal and pelvic swelling, mass and lump, unspecified site (principal)
CPT/HCPCS: 74177; Q9967

== ENCOUNTER → 2025-06-26 12:42 | Outpatient (BNV) | payer OTHER, SELFPAY | PROVIDERS: PCP Internal Medicine; Visit Provider Radiology Diagnostic Radiology | DX: K40.90 Unilateral inguinal hernia, without obstruction or gangrene, not specified as recurrent (principal); K76.0 Fatty (change of) liver, not elsewhere classified | CPT/HCPCS: 74177 ==

== ENCOUNTER 2025-06-27 15:59 | Outpatient (AMB) | payer OTHER, SELFPAY ==
[2025-06-27 16:13] VITALS: BP 102/68; PULSE 66; O2SAT 97; BMI 32.0
--- NOTE | 2025-06-27 16:13 | MHC.PC.OV ---
Vital Signs 06/27/25 16:13 Height 5 ft Weight 164 lb BMI 32.0 BP 102/68 Blood Pressure Location Lt brachial Position Sitting Pulse 66 Pulse Source Pulse Oximeter Pulse Oximetry (%) 97 Oxygen Delivery Method Room Air Intake Visit Reasons: pe Communications Department Chair Required: No Accompanied by: Self / Same As Patient Allergies No Known Allergies Allergy (Mild, Verified 06/27/25 16:58) NKA Medication List - Last Reconciled 06/27/25 by Perez Noriega MD Ventolin HFA 90 mcg/actuation (albuterol sulfate) 2 puffs inhalation Q6-8H PRN 90 days NS Tobacco use date assessed: 06/27/25 Dental Screening Dental Screen Date: 06/27/25 Did you have a dental visit in the last 12 months?: Yes Did you have a dental problem in the last 6 months where you did not have access to dental care?: No Was dental information given to patient?: Patient has dentist HPI pe HPI Details Patient comes in today for her annual physical examination States that she feels okay She denies any headaches or dizziness Denies any chest pains, no SOB No nausea/vomiting but she is still experiencing recurrent pain over her left lower abdomen and would like to know how her abdominal CT done yesterday came out and if it showed anything to help explain her symptoms (patient thinks that she has a hernia) No change in bowel habits noted She denies any acute urinary symptoms She had her follow up labs done last month - to discuss her results Patient has not yet had her screening colonoscopy done - she was referred for this a couple of years ago but she admitted that she did not call to schedule her appointment She is scheduled for [facility] She also has not had her annual mammogram done in a few years now [facility] Medical History Perianal abscess Pure hypercholesterolemia Breast cancer screening by mammogram Impaired fasting glucose Numbness of right foot Headache Low back pain Neck pain Perianal cyst Impacted cerumen of both ears Skin mole Tenosynovitis of thumb Tenosynovitis of forearm Overweight (BMI 25.0-29.9) Medical marijuana use Bipolar disorder Anxiety Insomnia Migraine Asthma Surgical History Status post abdominal hysterectomy (~02/09/13) History of section (~07/2011) History of breast augmentation (~02/18/10) History of incision and drainage (~2008) Family History Father Unknown family medical history Mother Diabetes mellitus Hypertension Asthma Paternal Grandfather Alzheimer's dementia Social History Housing: Apartment Alcohol intake: never Patient Tobacco Use Status: Never used Tobacco e-Cigarette/Vaping Use: Never Used Second Hand Smoke Exposure: Yes Substance Use Type: Marijuana service: No Current occupational status: employed 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 Cognitive needs: No Hearing needs: No Vision needs: Yes Female Reproductive History Menstrual Age of Menarche: 14 Questionnaire Thrive Questionnaire Date Thrive assessed: 05/01/25 I am a: Patient What is your living situation today?: I have a steady place to live Within the past 12 months, did the food you bought not last and you didn't have the money to get more?: Never true Within the past 12 months, did you worry whether your food would run out before you got money to buy more?: Never true Do you have trouble paying for medicines?: No Do you have trouble getting transportation to medical appointments?: No Do you have trouble paying your heating and electricity bill?: No Do you have trouble taking care of your child, family member or friend?: No Do you have trouble with day-to-day activities such as bathing, preparing meals, shopping, managing finances, etc.?: No Are you currently unemployed and looking for a job?: No Are you interested in more education?: No Please select the resources that you would like help with: None Currently or been in a relationship where the following occur: No concerns reported THRIVE Score: 0 AUDIT C Alcohol Use Questionnaire (AUDIT-C) 1. How often do you have a drink containing alcohol?: Monthly or less 2. How many drinks containing alcohol do you have on a typical day when you are drinking?: 1 or 2 3. How often do you have six or more drinks on one occasion?: Never Total Score: 1 Score Reviewed/Action Taken: Yes MALINA-7 AMB Questionnaire MALINA-7 Date MALINA - 7 assessed: 05/01/25 Source: Developed by Drs. Solomon Duval, Alexa Degroot, José Miguel Lundberg and colleagues, with an educational zulema from [employer]. Review of Systems Const Denies chills, Denies fatigue, Denies fever(s), Denies headache(s) and Denies malaise Eyes Denies blurry vision, Denies change in vision, Denies irritation and Denies itchy eyes ENT Denies dysphagia, Denies dizziness, Denies otalgia, Denies headache(s), Denies nasal congestion, Denies neck pain, Denies odynophagia, Denies sinus pain and Denies sore throat Card Denies chest pain, Denies rapid heart rate, Denies irregular heart rhythm, Denies palpitations and Denies dyspnea Resp Denies chest congestion, Denies cough, Denies dyspnea and Denies wheezing GI Reports abdominal pain (on and off, over the left lower abdomen), Denies bloating, Denies constipation, Denies dysphagia, Denies heartburn, Denies diarrhea, Denies nausea, Denies odynophagia and Denies vomiting Denies hematuria, Denies urinary frequency, Denies dysuria, Denies urinary incontinence and Denies urinary urgency Musc Denies back pain, Denies arthralgias, Denies joint swelling, Denies muscle weakness and Denies neck pain Skin/Breast Denies breast pain, Denies breast mass, Denies change in pigmentation, Denies lesions, Denies rash and Denies unusual bruising Neuro Denies dizziness, Denies headache(s) and Denies paresthesias Psych Denies anxiety and Denies depression Endo Denies fatigue and Denies palpitations Albert/Lymph Denies easy bruising Aller/Immun Denies itchy eyes and Denies wheezing Physical exam (Primary Care) Vital Signs: Last Vital Signs Pulse 66 06/27/25 16:13 BP 102/68 06/27/25 16:13 Pulse Ox 97 06/27/25 16:13 Oxygen Delivery Method Room Air 06/27/25 16:13 BMI result Body Mass Index 32.0 Tobacco/Smoking Status: Tobacco use Status Tobacco use date assessed 06/27/25 06/27/25 16:19 Patient Tobacco Use Status Never used Tobacco 06/27/25 16:19 e-Cigarette/Vaping Use Never Used 06/27/25 16:19 Thrive Assessment: Date of Thrive Assessment Date Thrive assessed 05/01/25 06/27/25 16:19 Currently or been in a relationship where the following occur: No concerns reported Const General: no acute distress and alert HENMT Ears: TM's normal bilaterally Throat: Yes posterior oropharynx normal and Yes tonsils normal (no TP congestion noted) Neck Neck: Yes no lymphadenopathy and Yes supple Resp Auscultation: no crackles, no rales, rhonchi (scattered) throughout, no wheezes and diminished lung sounds Cardio Rate: regular rate Rhythm: regular rhythm Heart sounds: no murmurs GI Palpation (GI): Soft to palpation, nontender and No hepatosplenomegaly present Extrem General: Yes no clubbing, cyanosis or edema Results Reviewed Results Reviewed: Laboratory Tests 06/06/24 05/26/25 05/26/25 08:45 07:54 07:57 WBC 5.4 Hgb 14.9 Hct 43.3 Plt Count 227 Sodium 142 Potassium 4.1 Creatinine 0.78 Estimated GFR > 60 Fasting Glucose 94 Calcium 8.5 AST 24 ALT 34 H Cholesterol 227 H 221 H LDL Cholesterol, Calc 143 H 144 H Triglycerides 130 HDL Cholesterol 51 25-OH Vitamin D Total 42.2 TSH 0.78 Ur Specific [place] 1.015 Urine Protein Negative Urine Glucose (UA) Negative Urine Blood Negative Urine Nitrite Negative Ur Leukocyte Esterase Negative Coding Level of Care Code Est Pt Prev Care 40-64y(74330) Diagnoses Annual physical exam Z00.00 Pure hypercholesterolemia E78.00 Left inguinal hernia K40.90 Elevated LFTs R79.89 Mild intermittent asthma without complication J45.20 Asthma severity: mild Asthma persistence: intermittent Asthma complication type: uncomplicated Iron deficiency anemia secondary to inadequate dietary iron intake D50.8 Anemia type: iron deficiency Iron deficiency anemia type: inadequate dietary iron intake Migraine without status migrainosus, not intractable, unspecified migraine type G43.909 Migraine type: unspecified Status migrainosus presence: without status migrainosus Intractability: not intractable Psychophysiological insomnia F51.04 Insomnia type: psychophysiologic Anxiety F41.9 Bipolar affective disorder, current episode mixed, current episode severity unspecified F31.60 Active/Remission status: currently active Current bipolar episode type: mixed Current episode severity: unspecified Overweight (BMI 25.0-29.9) E66.3 Breast cancer screening by mammogram Z12.31 Colon cancer screening Z12.11 Assessment & Plan Assessment & Plan (1) Annual physical exam: Code(s): Z00.00 - Encounter for general adult medical examination without abnormal findings Category: Medical Plan: Results of her labs done last month reviewed and discussed with patient Patient has not yet had her screening colonoscopy done - she was referred for this a couple of years ago but she admitted that she did not call to schedule her appointment She is scheduled for her [facility] She also has not had her annual mammogram done in a few years now (2) Pure hypercholesterolemia: Code(s): E78.00 - Pure hypercholesterolemia, unspecified Category: Medical Plan: Patient is cautioned that her cholesterol levels are still elevated on her labs done last month, with her total cholesterol at 221 mg/dl and LDL cholesterol at 144 mg/dl and these have not changed at all when compared to her numbers last year Reinforced low cholesterol diet Will have patient recheck her cholesterol levels in 6 months for follow-up and advised that if her numbers do not improve significantly over the next few months, then we will need to consider starting her on cholesterol-lowering medications (3) Left inguinal hernia: Code(s): K40.90 - Unilateral inguinal hernia, without obstruction or gangrene, not specified as recurrent Category: Medical Plan: Her abdominal and pelvic CT done yesterday revealed the presence of a left inguinal hernia, which corresponds to the abdominal wall 'bulge' and left lower abdominal mass that she was noticing over the past few months Will go ahead and refer her to surgery for further management and consideration for hernia repair (4) Elevated LFTs: Code(s): R79.89 - Other specified abnormal findings of blood chemistry Category: Medical Plan: Patient's serum ALT was slightly elevated on her recent labs; AST was normal Have discussed with patient that this is most likely related to her weight (hepatosteatosis), which was seen on her recent CT, and that losing weight should help resolve this issue (5) Asthma: Code(s): J45.909 - Unspecified asthma, uncomplicated Category: Medical Qualifiers: Asthma severity: mild Asthma persistence: intermittent Asthma complication type: uncomplicated Qualified Code(s): J45.20 - Mild intermittent asthma, uncomplicated Plan: Controlled Continue Ventolin HFA 1 to 2 inhalations Q 6 hours PRN (6) Anemia: Code(s): D64.9 - Anemia, unspecified Category: Medical Qualifiers: Anemia type: iron deficiency Iron deficiency anemia type: inadequate dietary iron intake Qualified Code(s): D50.8 - Other iron deficiency anemias Plan: Her CBC was normal on her labs done last month Continue Ferrous Sulfate 325 mg QD Will continue to monitor her CBC regularly (7) Migraine: Code(s): G43.909 - Migraine, unspecified, not intractable, without status migrainosus Category: Medical Qualifiers: Migraine type: unspecified Status migrainosus presence: without status migrainosus Intractability: not intractable Qualified Code(s): G43.909 - Migraine, unspecified, not intractable, without status migrainosus Plan: Stable/controlled Continue Fioricet 50-325-40 mg 1 tablet 2 to 3 times a day as needed (8) Insomnia: Code(s): G47.00 - Insomnia, unspecified Category: Medical Qualifiers: Insomnia type: psychophysiologic Qualified Code(s): F51.04 - Psychophysiologic insomnia Plan: Sleep hygiene reinforced She has tried taking OTC Melatonin but did not find it helpful States that she is currently taking OTC Tylenol PM with her 'Gummies' and that these have been helping better lately (9) Anxiety: Code(s): F41.9 - Anxiety disorder, unspecified Category: Medical Plan: Patient states that her anxiety remains well-controlled lately and she does not need any other Rx at this time States that working full-time and staying busy is keeping her mind occupied and have helped a lot (10) Bipolar disorder: Code(s): F31.9 - Bipolar disorder, unspecified Category: Medical Qualifiers: Active/Remission status: currently active Current bipolar episode type: mixed Current episode severity: unspecified Qualified Code(s): F31.60 - Bipolar disorder, current episode mixed, unspecified Plan: Patient has not been on any Rx for her bipolar disorder for at least 2 to 3 years now and states that she is doing well so far without any prescription Rx States that working full-time has helped her a lot Follow up with psychiatry as scheduled (11) Overweight (BMI 25.0-29.9): Code(s): E66.3 - Overweight Category: Medical Plan: Reinforced diet/exercise as tolerated/lose weight (12) Breast cancer screening by mammogram: Code(s): Z12.31 - Encounter for screening mammogram for malignant neoplasm of breast Category: Medical Plan: Will send her for her annual mammogram [facility] (13) Colon cancer screening: Code(s): Z12.11 - Encounter for screening for malignant neoplasm of colon Category: Medical Plan: Will also refer her to Dr. Parr, per her request, for screening colonoscopy Plan Follow up in 6 months Orders: Orders MM tomosynthesis screening BI 06/27/25 Z12.31 - Encounter for screening mammogram for malignant neoplasm of breast Comprehensive [place]. Panel Fast 6 Months E78.00 - Pure hypercholesterolemia, unspecified Lipid Panel 6 Months E78.00 - Pure hypercholesterolemia, unspecified Complete Blood Count Auto Diff 6 Months D64.9 - Anemia, unspecified Referrals Gastroenterology Referral Z12.11 - Encounter for screening for malignant neoplasm of colon General Surgery Referral K40.90 - Unilateral inguinal hernia, without obstruction or gangrene, not specified as recurrent
--- OUTSIDE RECORDS SUMMARY | 2025-06-27 17:03 | XMS_ITS | Clinical Summary ---
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
== END 2025-06-27 17:14 | disposition home or self-care (01) ==
LOC: HO.HMCH 16:00
PROVIDERS: PCP Internal Medicine; Visit Provider Internal Medicine
DX: Z00.00 Encounter for general adult medical examination without abnormal findings (principal); F31.60 Bipolar disorder, current episode mixed, unspecified; E78.00 Pure hypercholesterolemia, unspecified; K40.90 Unilateral inguinal hernia, without obstruction or gangrene, not specified as recurrent; R79.89 Other specified abnormal findings of blood chemistry; J45.20 Mild intermittent asthma, uncomplicated; D50.8 Other iron deficiency anemias; G43.909 Migraine, unspecified, not intractable, without status migrainosus; F51.04 Psychophysiologic insomnia; F41.9 Anxiety disorder, unspecified; E66.3 Overweight; Z12.31 Encounter for screening mammogram for malignant neoplasm of breast

== ENCOUNTER → 2025-06-27 15:59 | Outpatient (BNVA) | payer OTHER, SELFPAY | PROVIDERS: PCP Internal Medicine; Visit Provider Internal Medicine | DX: Z00.00 Encounter for general adult medical examination without abnormal findings (principal); E78.00 Pure hypercholesterolemia, unspecified; K40.90 Unilateral inguinal hernia, without obstruction or gangrene, not specified as recurrent; R79.89 Other specified abnormal findings of blood chemistry; J45.20 Mild intermittent asthma, uncomplicated; D50.8 Other iron deficiency anemias; G43.909 Migraine, unspecified, not intractable, without status migrainosus; F51.04 Psychophysiologic insomnia; F41.9 Anxiety disorder, unspecified; F31.60 Bipolar disorder, current episode mixed, unspecified; E66.3 Overweight; Z68.32 Body mass index [BMI] 32.0-32.9, adult | CPT/HCPCS: 99396 ==

== ENCOUNTER 2025-07-06 08:13 | Outpatient (AMB) | payer OTHER, SELFPAY ==
--- NOTE | 2025-07-06 08:21 | MHC.OFFVIS ---
Vital Signs 07/06/25 08:28 Height 5 ft Weight 166 lb BMI 32.4 BP 123/79 Blood Pressure Location Rt brachial Position Sitting Pulse 72 Intake Visit Reasons: Unilateral inguinal hernia Intake Note: This patient was referred by Dr. Noriega for an assessment for unilateral inguinal hernia. Patient c/o: bothersome when bending, sitting, bulging out. First noticed 6mo ago. Imagin01/31/25-Pelvis US 06/26/25-Abd/pelvis CT Investor Relations Specialist Required: No Accompanied by: Self / Same As Patient Allergies No Known Allergies Allergy (Mild, Verified 07/06/25 08:27) NKA Medication List - Last Reconciled 07/06/25 by Niko Parr MD Ventolin HFA 90 mcg/actuation (albuterol sulfate) 2 puffs inhalation Q6-8H PRN 90 days NS HPI HPI Unilateral inguinal hernia: Details: 50 year female referred for a left inguinal hernia. She actually had been complaining of what she thought was a reducible mass on the left lower quadrant area. She says that this has been causing him some vague discomfort and some pulling sensation. She denies GI complaints She has had this problem for about 5 months. She was eventually sent for CAT scan by her primary care physician. This showed a small fat containing left inguinal hernia. The patient was then referred to me She says she did not know that she had a ?lump? on the left groin area. She says she is healthy overall. [facility] Medical History (Updated 07/06/25 @ 08:47 by Niko Parr MD) Reducible left inguinal hernia Perianal abscess Pure hypercholesterolemia Breast cancer screening by mammogram Impaired fasting glucose Numbness of right foot Headache Low back pain Neck pain Perianal cyst Impacted cerumen of both ears Skin mole Tenosynovitis of thumb Tenosynovitis of forearm Overweight (BMI 25.0-29.9) Medical marijuana use Bipolar disorder Anxiety Insomnia Migraine Asthma Surgical History Status post abdominal hysterectomy (~02/09/13) History of section (~07/2011) History of breast augmentation (~02/18/10) History of incision and drainage (~2008) Family History Father Unknown family medical history Mother Diabetes mellitus Hypertension Asthma Paternal Grandfather Alzheimer's dementia Social History Housing: Apartment Alcohol intake: never Patient Tobacco Use Status: Never used Tobacco e-Cigarette/Vaping Use: Never Used Second Hand Smoke Exposure: Yes Substance Use Type: Marijuana service: No Current occupational status: employed 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 Cognitive needs: No Hearing needs: No Vision needs: Yes Female Reproductive History Menstrual Age of Menarche: 14 Review of Systems Const Denies chills and Denies fever(s) Card Denies chest pain, Denies dyspnea and Denies dyspnea on exertion Resp Denies cough, Denies dyspnea and Denies dyspnea on exertion GI Denies hematochezia and Denies change in bowel habits Denies hematuria Musc Denies back pain and Denies limited range of motion Neuro Denies focal weakness and Denies convulsions Psych Denies depression and Denies mood swings Physical Exam Vital Signs: Last Vital Signs Pulse 72 07/06/25 08:28 BP 123/79 07/06/25 08:28 BMI result Body Mass Index 32.4 Const General: comfortable and no acute distress Orientation/consciousness: patient oriented x3 Neck Neck: Yes no lymphadenopathy Resp Auscultation: clear to auscultation bilaterally Cardio Rhythm: regular rhythm GI Other: No palpable mass on the left lower quadrant Unable to palpate for the left inguinal hernia in view of the patient's subcutaneous fat Palpation (GI): Soft to palpation, nontender and no guarding Neuro General: patient oriented x3 Assessment & Plan Assessment & Plan (1) Reducible left inguinal hernia: Code(s): K40.90 - Unilateral inguinal hernia, without obstruction or gangrene, not specified as recurrent Category: Medical Plan: She had complained of question of a mass in the left lower quadrant with some vague discomfort. Her CAT scan shows a small fat containing left inguinal hernia. I explained to her that this may not be related to her complaints of left lower quadrant problems She says that she wants this left inguinal hernia repaired. She says she is worried about this getting worse. She says that she is a very anxious person. She insisted that despite the absence of significant symptoms, she wants to proceed with repair of the left inguinal hernia. I explained to her the technique of repair of the left inguinal hernia with mesh. I reviewed the risks including but not limited to bleeding, infections, bowel injury, recurrence, postop pain, as well as the benefits and alternatives. I also reviewed with her what to expect postoperatively. She says she understands the above and wants to proceed. Coding Level of Care Code New Pt Level 3 (54457) Diagnoses Reducible left inguinal hernia K40.90
[2025-07-06 08:28] VITALS: BP 123/79; PULSE 72; BMI 32.4
== END 2025-07-06 08:55 | disposition home or self-care (01) ==
LOC: HO.HGS 08:14
PROVIDERS: PCP Internal Medicine; Visit Provider Surgery
DX: K40.90 Unilateral inguinal hernia, without obstruction or gangrene, not specified as recurrent (principal)
CPT/HCPCS: 99214

== ENCOUNTER → 2025-07-06 08:13 | Outpatient (BNVA) | payer OTHER, SELFPAY | PROVIDERS: PCP Internal Medicine; Visit Provider Surgery | DX: K40.90 Unilateral inguinal hernia, without obstruction or gangrene, not specified as recurrent (principal) | CPT/HCPCS: 99212 ==

== ENCOUNTER 2025-08-04 05:47 | Day surgery (SDC) | payer OTHER, SELFPAY ==
--- OUTSIDE RECORDS SUMMARY | 2025-07-10 08:00 | XMS_ITS | Encounter Summary ---
Author Organization [employer] [facility] Address [address] 7t [place] [address] Care Team Providers Care Owner Name Role Phone Unavailable Primary Care Provider Unavailabl e Reason for Visit * Reason Comments Routine Cleaning Perio chart Encounter Details Date Type Department Care Team (Latest Contact Info) Description 07/10/2025 8:00 AM EDT Office Visit [facility] ADULT DENTAL [address] [place] [address] Janina Amaya [address] [place] [address] Dental calculus (Primary Dx); 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 Social History Tobacco Use Types Packs/Day Years [...] AM EDT documented as of this encounter Last Filed Vital Signs Vital Sign Reading Time Taken Comments Blood Pressure 122/72 07/10/2025 8:02 AM EDT Pulse - - Temperature - - Respiratory Rate - - Oxygen Saturation - - Inhaled Oxygen Concentration - - Weight - - Height - - Body Mass Index - - documented in this encounter Progress Notes * Janina Amaya - 07/10/2025 8:00 AM EDT Patient ID: Antionette Rinaldi is a 50 y.o. female. Time Out: Timeout Date: 07/10/25, Timeout Time: 0810 (prophy) Location: [facility] Tooth: Maxilla and Mandible Procedure: Prophylaxis, Perio chart. Verified the above with patient, certified ophthalmic surgical assistant, and provider. Confirmed via patient's chart, intraorally and by radiographs. C Developer: not applicable Medical Hx: Vitals: Blood pressure 122/72. Medications, Med Hx reviewed with patient and updated in chart. Treatment Provided Dental procedures in this visit D1110 - PROPHYLAXIS - ADULT (Completed) Service provider: Janina Amaya Billandre provider: Randy Zurita DDS [id number] - CASE PRESENTATION, DETAILED AND EXTENSIVE TREATMENT PLANNING (Completed) Service provider: Janina Amaya Billing provider: Randy Zurita DDS [id number] - ORAL HYGIENE INSTRUCTIONS (Completed) Service provider: Janina Amaya Billandre provider: Randy Zurita DDS Instruments Used: Ultrasonic Scalers, Hand Scalers, and Prophy angle Oral Cancer Screening: No lesions Head/Neck Exam: No Lesions Calculus: new moderate calculus on #s 23,24,25,26. Plaque: Light and Moderate Stain: discolored exposed roots. Bleeding: Light Gingiva: Erythematous on #s 29,30,31 ,23,24,25,26 lingual. Pt to brush and floss better using Peterson technique. OH: Pt needs to improve OH Perio Chart: Completed, still exhibits bleeding upon probing on LR quad and lower anteriors lingualgingiva. Oral hygiene instructions provided to patient including brushing technique and flossing. Recommendations: [place] two times daily, modified peterson technique, Floss daily, Electric toothbrush, Soft bristle toothbrush, Seiling Tongue, Anti-sensitivity toothpaste Recall Frequency: 3 mo Sep 2025 NV: 3 months prophy. Hygienist: Janina Amaya RDH documented in this encounter Plan of Treatment Upcoming Encounters Date Type Department Care Team (Late st Contact Info) Description 07/20/2025 3:30 PM EDT Office Visit [facility] ADULT DENTAL [address] [place] [address] Basil Barnard, ELO [address] [place] [address] 10/17/2025 8:45 AM EST Office Visit [facility] ADULT DENTAL [address] [place] [address] Janina Amaya [address] [place] [address] Scheduled Orders Name Type Priority Associated Diagnoses Orde r Schedule PROPHYLAXIS - ADULT Dental Routine 1 Occ urrences starting 07/10/2025 CASE PRESENTATION, DETAILED AND EXTENSIVE TREATMENT PLANNING Dental Routine 1 Occurrences starting 07/10/2025 ORAL HYGIENE INSTRUCTIONS Dental Routine 1 Occurrences starting 07/10/2025 documented as of this encounter Procedures Procedure Name Priority Date/Time Associated Diagnosis Comments PROPHYLAXIS - ADULT Routine 07/10/2025 8 :00 AM EDT Dental calculus 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
--- OUTSIDE RECORDS SUMMARY | 2025-07-14 12:00 | XMS_ITS | Clinical Summary ---
Author Organization [employer] [facility] [place] [address] Care Team Providers Care Multiple Launch Rocket System Crewmember Name Role Phone Unavailable Primary Care Provider [...]
--- OUTSIDE RECORDS SUMMARY | 2025-07-14 12:00 | XMS_ITS | Encounter Summary ---
Author Organization [facility] Address [address] 7t [place] [address] Care Team Providers Care Director Clinical Research Name Role Phone Unavailable Primary Care Provider Unavailabl e Encounter Details Date Type Department Care Team (Latest Contact Info) Description 11/29/2020 Abstract [facility] CONVERSIONS Dental, Provider, DDS Social History [...] Description 07/20/2025 3:30 PM EDT Office Visit [facility] ADULT DENTAL [address] [place] [address] Basil Barnard, ELO [address] [place] [address] 10/17/2025 8:45 AM EST Office Visit [facility] ADULT DENTAL [address] [place] [address] Monique Janina [address] [place] [address] documented as of this encounter Visit Diagnoses Not on filedocumented in this encounter
--- OUTSIDE RECORDS SUMMARY | 2025-07-14 12:00 | XMS_ITS | Clinical Summary ---
Author Organization [employer] [facility] Address [address] [facility] 7t [place] [address] Care Team Providers Care Alarm Adjuster Name Role Phone Unavailable Primary Care Provider [...] Encounters Date Type Department Care Team Description 07/10/2025 8:00 AM EDT Office Visit [facility] ADULT DENTAL [address] [place] [address] Janina Amaya Dental calculus (Primary Dx); 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 07/06/2025 11:30 AM EDT Office Visit [facility] ADULT DENTAL [address] [place] [address] Basil Barnard DMD 06/21/2025 8:00 AM EDT Office Visit [facility] ADULT DENTAL [address] [place] [address] Basil Barnard DMD 06/12/2025 9:00 AM EDT Office Visit [facility] ADULT DENTAL [address] [place] [address] Janina Amaya 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 (Primary Dx); Dental calculus 06/12/2025 Travel 06/05/2025 9:00 AM EDT Office Visit [facility] ADULT DENTAL [address] [place] [address] Janina mAaya Dental calculus (Primary Dx); 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 05/30/2025 3:00 PM EDT Office Visit [facility] [address] [place] [address] Basil Barnard DMD 05/26/2025 9:00 AM EDT Office Visit [facility] ADULT DENTAL [address] [place] [address] Basil Barnard DMD from Last 3 Months [...] Description 07/20/2025 3:30 PM EDT Office Visit [facility] ADULT DENTAL [address] [place] [address] Basil Barnard DMD [address] [place] [address] 10/17/2025 8:45 AM EST Office Visit [facility] ADULT DENTAL [address] [place] [address] Janina Amaya [address] [place] [address] Health Maintenance Due Date Last Done Comments [...] 12/02/2024, 08/2022, 11/29/2020, Additional history exists Dental X-Ray: Bitewings 12/03/2025 12/03/19 25, 05/09/2022, 11/29/2020, Additional history exists Dental Prophylaxis 01/09/2026 07/10/2025, 0 12/02/2024, 05/09/2022, Additional history exists Tobacco Screening 07/10/2026 07/10/2025 Zoster Vaccines (1 of 2) 2027 DTaP/Tdap/Td [...] Procedure Name Priority Date/Time Associated Diagnosis Comments ORAL HYGIENE INSTRUCTIONS Routine 07/10/2025 8:00 AM EDT Dental calculus 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 CASE PRESENTATION, DETAILED AND EXTENSIVE TREATMENT PLANNING Routine 07/10/2025 8:00 AM EDT Dental calculus 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 PROPHYLAXIS - ADULT Routine 07/10/2025 8 :00 AM EDT Dental calculus 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 WAX TRY IN Routine 07/06/2025 11:30 AM EDT DENTURE IMPRESSION Routine 06/21/2025 8: 00 AM [...] CHARGE VISIT Routine 05/26/2025 9:00 AM EDT INTRAORAL - COMPLETE SERIES OF RADIOGRAPHIC IMAGES Routine 12/02/2024 1:00 PM EST Periodontal disease Dental calculus Missing teeth, acquired PERIODIC ORAL EVALUATION - ESTABLISHED PATIENT Routine 12/02/2024 1:00 PM EST from Last 3 Months or Most Recently Relevant to Health Maintenance Insurance [facility] MEDICAID STAND ADULT
--- OUTSIDE RECORDS SUMMARY | 2025-07-14 12:00 | XMS_ITS | Encounter Summary ---
Author Organization [employer] [facility] Address [address] [place] [address] Care Team Providers Care Facilitator Name Role Phone Unavailable Primary Care Provider Macho e Encounter Details Date Type Department Care Team (Late st Contact Info) Description 03/23/2023 Abstract [facility] ADULT DENTAL [address] [place] [address] Basil Barnard, DMD [address] [place] [address] Social History Tobacco Use Types Packs/Day Years [...] Description 07/20/2025 3:30 PM EDT Office Visit [facility] ADULT DENTAL [address] [place] [address] Basil Barnard, DMD [address] [place] [address] 10/17/2025 8:45 AM EST Office Visit [facility] ADULT DENTAL [address] [place] [address] Janina Amaya [address] [place] [address] documented as of this encounter Visit Diagnoses Not on filedocumented in this encounter
--- OUTSIDE RECORDS SUMMARY | 2025-07-14 12:00 | XMS_ITS | Encounter Summary ---
Author Organization [employer] [facility] Address [address] [place] [address] Care Team Providers Care Shear Grinder Operator Helper Name Role Phone Unavailable Primary Care Provider Unavailabl e Encounter Details Date Type Department Care Team (Latest Contact Info) Description 05/09/2022 Abstract [facility] CONVERSIONS Dental, Provider, DDS Social History [...] Description 07/20/2025 3:30 PM EDT Office Visit [facility] ADULT DENTAL [address] [place] [address] Basil Barnard, ELO [address] [place] [address] 10/17/2025 8:45 AM EST Office Visit [facility] ADULT DENTAL [address] [place] [address] Monique Janina [address] [place] [address] documented as of this encounter Visit Diagnoses Not on filedocumented in this encounter
--- NOTE | 2025-08-02 09:24 | P.CONAN_ITS ---
Documented by User: Ban Sherwood NP 08/02/25 09:25 HPI - Anesthesia Eval Consult details Narrative: 50 yr old female for left Repair Hernia Inguinal Reducible with mesh PMFSH Active Problems Active Problems: All Active Problems (Updated 07/06/25 @ 08:47 by Niko Parr MD) Reducible left inguinal hernia (Acute) Elevated LFTs (Acute) Left inguinal hernia (Acute) Reducible bulge of abdominal wall (Acute) Acquired skin tag (Acute) Left lower quadrant abdominal mass (Acute) UTI (urinary tract infection) (Acute) Urinary frequency (Acute) Discharge from the vagina (Acute) Dysuria (Acute) Candidiasis of genitalia (Acute) Bacterial vaginal infection (Acute) Perianal abscess (Acute) Viral gastroenteritis (Acute) Pure hypercholesterolemia (Acute) Breast cancer screening by mammogram (Acute) Status post abdominal hysterectomy (Acute ~02/09/13) Hx of abnormal cervical Pap smear (Acute) Well woman exam with routine gynecological exam (Acute) Perianal cyst (Acute) Pilonidal cyst (Acute) Anemia (Acute) Discomfort of both ears (Acute) Neck pain (Acute) Impacted cerumen of both ears (Acute) Neck pain on left side (Acute) Skin mole (Acute) Tenosynovitis of thumb (Acute) Tenosynovitis of forearm (Acute) Overweight (BMI 25.0-29.9) (Acute) Medical marijuana use (Acute) Bipolar disorder (Acute) Anxiety (Acute) Insomnia (Acute) Migraine (Acute) Asthma (Acute) Past Medical History Medical History Reducible left inguinal hernia Perianal abscess Pure hypercholesterolemia Breast cancer screening by mammogram Impaired fasting glucose Numbness of right foot Headache Low back pain Neck pain Perianal cyst Impacted cerumen of both ears Skin mole Tenosynovitis of thumb Tenosynovitis of forearm Overweight (BMI 25.0-29.9) Medical marijuana use Bipolar disorder Anxiety Insomnia Migraine Asthma Family History Family History Father Unknown family medical history Mother Diabetes mellitus Hypertension Asthma Paternal Grandfather Alzheimer's dementia Surgical History Surgical History Status post abdominal hysterectomy (~02/09/13) History of section (~07/2011) History of breast augmentation (~02/18/10) History of incision and drainage (~2008) Social History Social History Housing: Apartment Are you a primary rn progressive care unit to a significant other at home: No Do you presently have visiting nurse or other home services: No Alcohol intake: never Patient Tobacco Use Status: Never used Tobacco e-Cigarette/Vaping Use: Never Used Second Hand Smoke Exposure: No Use of substances other than those prescribed or required for medical reasons: Yes Substance Use Type: Marijuana Substance Use Frequency: Daily Have you been hit, kicked, punched, or otherwise hurt by someone within the past year? 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 Cognitive needs: No Hearing needs: No Vision needs: Yes Meds Allergies Allergy/AdvReac Type Severity Reaction Status Date / Time No Known Allergies Allergy Mild NKA Verified 07/06/25 08:27 Exam Pertinent Lab Results Pertinent Lab Results: Laboratory Tests 05/26/25 07:57 WBC 5.4 RBC 4.92 Hgb 14.9 Hct 43.3 Plt Count 227 Sodium 142 Potassium 4.1 Chloride 110 H Carbon Dioxide 25 BUN 21 H Creatinine 0.78 Documented by User: Vera Palacios MD 08/04/25 07:17 PMFSH Past Medical History Medical History Reducible left inguinal hernia Perianal abscess Pure hypercholesterolemia Breast cancer screening by mammogram Impaired fasting glucose Numbness of right foot Headache Low back pain Neck pain Perianal cyst Impacted cerumen of both ears Skin mole Tenosynovitis of thumb Tenosynovitis of forearm Overweight (BMI 25.0-29.9) Medical marijuana use Bipolar disorder Anxiety Insomnia Migraine Asthma Family History Family History Father Unknown family medical history Mother Diabetes mellitus Hypertension Asthma Paternal Grandfather Alzheimer's dementia Surgical History Surgical History Status post abdominal hysterectomy (~02/09/13) History of section (~07/2011) History of breast augmentation (~02/18/10) History of incision and drainage (~2008) History of Problems with Anesthesia: No Social History Social History Housing: Apartment Are you a primary rn progressive care unit to a significant other at home: No Do you presently have visiting nurse or other home services: No Alcohol intake: never Patient Tobacco Use Status: Never used Tobacco e-Cigarette/Vaping Use: Never Used Second Hand Smoke Exposure: No Use of substances other than those prescribed or required for medical reasons: Yes Substance Use Type: Marijuana Substance Use Frequency: Daily Have you been hit, kicked, punched, or otherwise hurt by someone within the past year? 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 Cognitive needs: No Hearing needs: No Vision needs: Yes Meds Allergies Allergy/AdvReac Type Severity Reaction Status Date / Time No Known Allergies Allergy Mild NKA Verified 07/06/25 08:27 Exam Airway Mallampati Class: II TM Dist: >3cm Neck ROM: Full Partial: Upper Loose/Missing/Broken Teeth: Yes Heart: RRR Lungs: CTA Assessment and Plan Assessment Anesthesia Assessment: Anesthesia Plan Discussed and Chart Reviewed Final Anesthetic Review History of Problems with Anesthesia: No NPO: Yes ASA Class: II Final Preanesthetic Review: Meds/Allgs Chart Reviewed, Consent Obtained/Reviewed and Anes Risks/Benef Reviewed Patient Risk: Low Procedure Risk: Low Anesthetic Plan Anesthetic Plan: GA Disposition: Standard PACU
[2025-08-02 12:24] VITALS: BMI 32.4
[2025-08-04] VITALS (8 sets, daily range): BP systolic 93–118; BP diastolic 58–69; PULSE 66–92; RESP 13–18; TEMP 36.1–36.6; O2SAT 95–100; BMI 30.9
[2025-08-04] MEDS: Lactated Ringers 1,000 ML 100 ML IVCONT (07:04)
--- NOTE | 2025-08-04 07:17 | MHC.SHP ---
Pre-Procedural Eval Section A - 24 Hr Update-Section A only Date of Service: 08/04/25 The patient is an INPATIENT: No Changes since office visit: No Cold of Flu in the past 2 weeks, No New Medical Problems, No Changes in Medication and No Patient answered all questions The patient has been examined within 24 hours of the surgical procedure. The History & Physical has been completed within 30 days and I have reviewed it.: Yes Section B - Complete if H&P > 30 days Chief Complaint: Unilateral inguinal hernia, without obstruction Allergies: Allergies Allergy/AdvReac Type Severity Reaction Status Date / Time No Known Allergies Allergy Mild NKA Verified 07/06/25 08:27 Plan I have reviewed the history and physical and performed a pertinent physical examination on my patient. No changes have occurred unless specified. Time Spent With Patient Time: Total time managing care of this patient today ____ minutes.
--- NOTE | 2025-08-04 08:21 | W.PM.OPN ---
Operative Note Operative Note Date of Service: 08/04/25 Narrative: Preop diagnosis: Left inguinal hernia, reducible Postop diagnosis: Left inguinal hernia, reducible, indirect Procedure: Repair of a left inguinal hernia with mesh Surgeon: Niko Parr MD assistant professor of spanish: NIVIA Olivo The patient is a 50 year old female with note of a left inguinal hernia , on CAT scan. She did complain of some discomfort and sharp pains towards the area. She therefore wanted to proceed with repair of this hernia. She understood the technique of the planned procedure as well as the risks, benefits, and alternatives. She was brought to the operating room. She was placed supine under general anesthesia via laryngeal mask airway. The left groin was prepped and draped in the usual sterile fashion. A surgical time-out was done. The patient received cefazolin 2 g IV preoperatively. I infiltrated the planned line of incision with lidocaine 1%. I made the show incision along an imaginary line from the anterior superior iliac spine to the pubic ramus with a blade 15. This carried down through the full-thickness of the skin subcutaneous fat with electrocautery until the external oblique aponeurosis was visualized. I bluntly dissected the aponeurosis to expose the external ring. I made an incision on the aponeurosis with a blade 15. This was extended inferomedially to connect with the external ring. The inguinal canal was therefore entered. I applied hemostasis on the divided edges of the aponeurosis. I bluntly dissected the underside of the aponeurosis to create space for the mesh. The hernia was visualized. This was fat containing. I therefore dissected the round ligament to separate this from the hernia contents. I divided the round ligament between clamps, and applied ligatures with Polysorb 2-0 on both ends. I reduced the hernia through the internal ring. This was therefore an indirect hernia. I reinforced the entire floor of the canal with the flat mesh. The mesh was secured to the pubic ramus inferomedially, the internal oblique muscle laterally as well as the shelving edge of the inguinal meant laterally with Prolene 2 sutures. We irrigated. Hemostasis was confirmed We then proceeded to close the external oblique aponeurosis with a running Polysorb 2-0 stitch to re-create the external ring The subcutaneous layer was reapposed with Polysorb 3-0 simple interrupted sutures. Skin closure was achieved with Polysorb 4-0 subcuticular running stitch The area was infiltrated with Marcaine 0.5% for postop analgesia. Dressings were applied and the procedure was completed The patient tolerated the procedure well. There were no immediate complications. Initial and final counts of sponges and instruments were correct. Estimated blood loss was less than 25 cc. The patient was extubated without difficulty and transferred to the recovery room with stable vital signs.
== END 2025-08-04 09:35 | disposition home or self-care (01) ==
PROVIDERS: PCP Internal Medicine; Visit Provider Surgery
PROC: (CPT 49505; principal; 2025-08-04 07:30)
DX: K40.90 Unilateral inguinal hernia, without obstruction or gangrene, not specified as recurrent (principal); E78.00 Pure hypercholesterolemia, unspecified; R73.01 Impaired fasting glucose; J45.909 Unspecified asthma, uncomplicated; R20.0 Anesthesia of skin; E66.3 Overweight; Z68.32 Body mass index [BMI] 32.0-32.9, adult; F31.9 Bipolar disorder, unspecified; F41.9 Anxiety disorder, unspecified; Z79.899 Other long term (current) drug therapy; Z98.890 Other specified postprocedural states
CPT/HCPCS: 49505; C1781; J0690; J1630; J2003; J2250; J2371; J2704; J2795; J3010

== ENCOUNTER → 2025-08-04 05:47 | Outpatient (BNV) | payer OTHER, SELFPAY | PROVIDERS: PCP Internal Medicine; Visit Provider Surgery | DX: K40.90 Unilateral inguinal hernia, without obstruction or gangrene, not specified as recurrent (principal) | CPT/HCPCS: 49505 ==

== ENCOUNTER 2025-08-21 11:09 | Outpatient (AMB) | payer OTHER, SELFPAY ==
--- OUTSIDE RECORDS SUMMARY | 2025-08-17 08:00 | XMS_ITS | Encounter Summary ---
Author Organization [facility] [facility] Address [address] [facility] [address] [place] [address] Care Team Providers Care Police Records Clerk Name Role Phone Unavailable Primary Care Provider Unavailabl e Reason for Visit * Reason Comments Dentures Encounter Details Date Type Department Care Team (Late Contact Info) Description 08/17/2025 8:00 AM EST Office Visit [facility] ADULT DENTAL [address] [place] [address] Basil Barnard DMD [address] [place] [address] Social History Tobacco Use Types Packs/Day Years [...] Sign Reading Time Taken Comments Blood Pressure 120/80 08/17/2025 8:13 AM EST Pulse - - Temperature - - Respiratory Rate - - Oxygen Saturation - - Inhaled Oxygen Concentration - - Weight - - Height - - Body Mass Index - - documented in this encounter Progress Notes * Basil Barnard DMD - 08/17/2025 8:00 AM EST Delivery of P/. Pt likes the esthetic and feels fine Leroy documented in this encounter Plan of Treatment Upcoming Encounters Date Type Department Care Team (Late Contact Info) Description 10/17/2025 8:45 AM EST Office Visit [facility] ADULT DENTAL [address] [place] [address] Geovani Amayaaris [address] [place] [address] documented as of this encounter Procedures Procedure Name Priority Date/Time Associated Diagnosis Comments 3,2,4,12,13,14,15,5 MAXILLARY PARTIAL DENTURE - RESIN BASE (INCLUDING, RETENTIVE/CLASPING MATERIALS, RESTS, AND TEETH) Routine 08/17/2025 8:00 AM EST CASE PRESENTATION, DETAILED AND EXTENSIVE TREATMENT PLANNING Routine 08/17/2025 8:00 AM EST documented in this encounter Visit Diagnoses Not on filedocumented in this encounter
--- NOTE | 2025-08-21 11:11 | A.OFFVIS_ITS ---
Vital Signs 08/21/25 11:15 Height 5 ft Weight 162 lb BMI 31.6 Intake Visit Reasons: s/p LIH w/mesh Intake Note: This patient presents for post-op assessment status post Repair of a left inguinal hernia with mesh. Pt c/o; reports occasional pain when walking. Hose Suspender Cutter Required: No Accompanied by: Self / Same As Patient Allergies No Known Allergies Allergy (Mild, Verified 08/21/25 11:16) NKA HPI HPI s/p LIH w/mesh: Details: She had undergone repair of a left inguinal hernia with mesh last 08/04/2025. She tolerated the procedure well. She currently denies significant complaints and feels well overall. [facility] Medical History Reducible left inguinal hernia Perianal abscess Pure hypercholesterolemia Breast cancer screening by mammogram Impaired fasting glucose Numbness of right foot Headache Low back pain Neck pain Perianal cyst Impacted cerumen of both ears Skin mole Tenosynovitis of thumb Tenosynovitis of forearm Overweight (BMI 25.0-29.9) Medical marijuana use Bipolar disorder Anxiety Insomnia Migraine Asthma Surgical History History of left inguinal hernia repair (~08/04/25) Status post abdominal hysterectomy (~02/09/13) History of section (~07/2011) History of breast augmentation (~02/18/10) History of incision and drainage (~2008) Family History Father Unknown family medical history Mother Diabetes mellitus Hypertension Asthma Paternal Grandfather Alzheimer's dementia Social History Housing: Apartment Are you a primary resident care aid to a significant other at home: No Do you presently have visiting nurse or other home services: No Alcohol intake: never Patient Tobacco Use Status: Never used Tobacco e-Cigarette/Vaping Use: Never Used Second Hand Smoke Exposure: No Substance Use Type: Marijuana service: No Current occupational status: employed Current occupation: [employer] Cognitive needs: No Hearing needs: No Vision needs: Yes Female Reproductive History Menstrual Age of Menarche: 14 Review of Systems Const Denies chills and Denies fever(s) Card Denies chest pain, Denies dyspnea and Denies dyspnea on exertion Resp Denies cough, Denies dyspnea and Denies dyspnea on exertion GI Denies hematochezia and Denies change in bowel habits Denies hematuria Musc Denies back pain and Denies limited range of motion Neuro Denies focal weakness and Denies convulsions Psych Denies depression and Denies mood swings Physical Exam Vital Signs: BMI result Body Mass Index 31.6 Const General: comfortable and no acute distress GI Other: Left inguinal hernia repair site is well healed, not infected and repair is intact Assessment & Plan Assessment & Plan (1) Left inguinal hernia: Code(s): K40.90 - Unilateral inguinal hernia, without obstruction or gangrene, not specified as recurrent Category: Medical Plan: Status post repair with mesh. She is doing very well. The repair site is intact. The incisions well healed. I advised her to avoid lifting anything more than 20 lb for at least 2 more weeks. She can follow up on a p.r.n. basis. Coding Level of Care Code Global (45631) Diagnoses Left inguinal hernia K40.90
[2025-08-21 11:15] VITALS: BMI 31.6
--- OUTSIDE RECORDS SUMMARY | 2025-08-21 14:25 | XMS_ITS | Encounter Summary ---
Author Organization [employer] [facility] Address [address] [place] [address] Care Team Providers Care Industrial Organization Manager Name Role Phone Unavailable Primary Care Provider Unavailabl e Encounter Details Date Type Department Care Team (Latest Contact Info) Description 05/09/2022 Abstract [facility] CONVERSIONS Dental, Provider, [...] Care Team (Late st Contact Info) Description 10/17/2025 8:45 AM EST Office Visit [facility] ADULT DENTAL [address] [place] [address] Omnique, Janina [address] [place] [address] documented as of this encounter Visit Diagnoses Not on filedocumented in this encounter
--- OUTSIDE RECORDS SUMMARY | 2025-08-21 14:25 | XMS_ITS | Encounter Summary ---
Author Organization [employer] [facility] Address [address] [place] [address] Care Team Providers Care Flight Engineer Instructor Name Role Phone Unavailable Primary Care Provider Unavailabl e Encounter Details Date Type Department Care Team (Latest Contact Info) Description 11/29/2020 Abstract [facility] CONVERSIONS Dental, Provider, DDS Social History [...] Description 10/17/2025 8:45 AM EST Office Visit [facility] ADULT DENTAL [address] [place] [address] Monique, Janina [address] [place] [address] documented as of this encounter Visit Diagnoses Not on filedocumented in this encounter
--- OUTSIDE RECORDS SUMMARY | 2025-08-21 14:25 | XMS_ITS | Encounter Summary ---
Author Organization [employer] [facility] Address [address] [place] [address] Care Team Providers Care Director Of Kids Name Role Phone Unavailable Primary Care Provider Macho e Encounter Details Date Type Department Care Team (Late st Contact Info) Description 03/23/2023 Abstract [facility] ADULT DENTAL [address] [place] [address] Basil Barnard, ELO [address] [place] [address] Social History Tobacco Use Types Packs/Day Years [...] Description 10/17/2025 8:45 AM EST Office Visit [facility] [address] [place] [address] MoniqueJanina [address] [place] [address] documented as of this encounter Visit Diagnoses Not on filedocumented in this encounter
--- OUTSIDE RECORDS SUMMARY | 2025-08-21 14:25 | XMS_ITS | Clinical Summary ---
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 07/06/2025 11:30 AM EDT Office Visit [facility] ADULT DENTAL [address] [place] [address] Basil Barnard DMD 06/21/2025 8:00 AM EDT Office Visit [facility] ADULT DENT[facility] [address] [place] [address] Basil Barnard DMD 06/12/2025 9:00 AM EDT Office Visit [facility] ADULT DENTAL [address] [place] [address] Janina Amaya 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 (Primary Dx); Dental calculus 06/12/2025 Travel 06/05/2025 9:00 AM EDT Office Visit [facility] ADULT DENTAL [address] [facility] [place] [address] Janina Amaya Dental calculus (Primary Dx); 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 05/30/2025 3:00 PM EDT Office Visit [facility] [address] [place] [id number] Basil Barnard DMD 05/26/2025 9:00 AM EDT Office Visit [facility] ADULT D[facility]AL [address] [place] [address] Basil Barnard DMD from Last 3 Months [...] 8:45 AM EST Office Visit [facility] ADULT D[facility] [address] [place] [address] Janina Amaya [address] [place] [address] Health Maintenance Due Date Last Done Comments [...] Mammogram 2017 COVID-19 Vaccine ( - season) 2025 Influenza Vaccine (#1) 2025 Dental Oral Exam 06/05/2025 12/02/2024, 08/2022, 11/29/2020, Additional history exists Dental X-Ray: Bitewings 12/03/2025 12/03/19 25, 05/09/2022, 11/29/2020, Additional history exists Dental Prophylaxis 01/09/2026 07/10/2025, 0 12/02/2024, 05/09/2022, Additional history exists Tobacco Screening 08/17/2026 08/17/2025 Zoster Vaccines (1 of 2) 2027 DTaP/Tdap/Td [...] Procedure Name Priority Date/Time Associated Diagnosis Comments CASE PRESENTATION, DETAILED AND EXTENSIVE TREATMENT PLANNING Routine 08/17/2025 8:00 AM EST 3,2,4,12,13,14,15,5 MAXILLARY PARTIAL DENTURE - RESIN BASE (INCLUDING, RETENTIVE/CLASPING MATERIALS, RESTS, AND TEETH) Routine 08/17/2025 8:00 AM EST ORAL HYGIENE INSTRUCTIONS Routine 07/10/2025 8:00 AM [...] Most Recently Relevant to Health Maintenance Insurance [place]
--- OUTSIDE RECORDS SUMMARY | 2025-08-21 14:25 | XMS_ITS | Clinical Summary ---
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
== END 2025-08-21 11:39 | disposition home or self-care (01) ==
LOC: HO.HGS 11:10
PROVIDERS: PCP Internal Medicine; Visit Provider Surgery
DX: K40.90 Unilateral inguinal hernia, without obstruction or gangrene, not specified as recurrent (principal)
CPT/HCPCS: 99024

== ENCOUNTER → 2025-08-21 11:09 | Outpatient (BNVA) | payer OTHER, SELFPAY | PROVIDERS: PCP Internal Medicine; Visit Provider Surgery | DX: K40.90 Unilateral inguinal hernia, without obstruction or gangrene, not specified as recurrent (principal) | CPT/HCPCS: 99212 ==